=== PATIENT | female | born 1955 | race Caucasian/White ===

== ENCOUNTER 2020-02-12 10:24 | Outpatient (CLI) | payer OTHER, SELFPAY ==
--- NOTE | ~2020-02-12 | DEXA_ITS ---
BMD(1) Young-Adult(2) Age-Matched(3) Region (g/cm2) T-score Z-score WHO Classification L1 0.984 -1.3 0.9 Osteopenia L2 0.995 -1.8 0.4 Osteopenia L3 1.022 -1.6 0.6 Osteopenia L4 0.976 -1.9 0.3 Osteopenia L1-L4 0.993 -1.6 0.5 Osteopenia Trend: L1-L4 Change vs Change vs Measured Age BMD(1) Baseline Previous Date ([age]) (g/cm2) (%) (%) 02/12/2020 64.7 0.993 -11.3* 1.6 11/15/2016 61.5 0.977 -12.8* -2.6 05/08/2014 59.0 1.003 -10.4* -14.3* 02[age]24/2011 55.8 1.171 4.6* 4.6* 03/22/2007 51.9 1.120 baseline - * - Indicates significant change based on 95% confidence interval. 1 - Statistically 68% of repeat scans fall within 1SD (+- 0.010 g/cm2 for AP Spine L1-L4) 2 - [place] (Combined [employer] (ages 20-30) / [employer] (ages 20-40)) AP Spine Reference Population (v112) 3 - Matched for Age, Weight (females 25-100 kg), Ethnic 11 - World Health Organization - Definition of Osteoporosis and Osteopenia for Women: Normal = T-score at or above -1.0 SD; Osteopenia = T-score between -1.0 and -2.5 SD; Osteoporosis = T-score at or below -2.5 SD; (WHO definitions only apply when a young healthy Women reference database is used to determine T-scores.) Printed: 02/12/2020 11:00:50 AM (13.60)76:3.00:50.00:12.0 0.00:8.28 0.60x1.05 17.0:%Fat=8.7% 0.00:0.00 0.00:0.00 Filename: [id number] Scan Mode: Standard;OneScan 37.0 Apprats [id number] BMD(1) Young-Adult(2,7) Age-Matched(3) Region (g/cm2) T-score Z-score WHO Classification Neck Left 0.713 -2.3 -0.5 Osteopenia Right 0.718 -2.3 -0.5 Osteopenia Mean 0.716 -2.3 -0.5 Osteopenia Difference 0.006 0.0 0.0 - Total Left 0.812 -1.6 0.0 Osteopenia Right 0.766 -1.9 -0.3 Osteopenia Mean 0.789 -1.7 -0.1 Osteopenia Difference 0.047 -0.4 -0.4 - Hip O[place]phant Length Comparison (mm) (Right = 101.6 mm) (Mean = 101.5 mm) (Left = 101.5 mm) Trend: Total Mean Change vs Change vs Measured Age BMD(1) Baseline Previous Date (years) (g/cm2) (%) (%) 02/12/2020 63.7 0.789 -15.1* -6.2* 05/08/2014 59.0 0.841 -9.5* -9.1* 02[age]24/2011 55.8 0.925 -0.4 -0.4 03/22/2007 50.9 0.929 baseline - * - Indicates significant change based on 95% confidence interval. 1 - Statistically 68% of repeat scans fall within 1SD (+- 0.010 g/cm2 for DualFemur Total) 2 - [place] (Combined NHANES (ages 20-30) / [employer] (ages 20-40)) Femur Reference Population (v112) 3 - Matched for Age, Weight (females 25-100 kg), Ethnic 7 - DualFemur Total T-score difference is 0.4. Asymmetry is None. 11 - World Health Organization - Definition of Osteoporosis and Osteopenia for Women: Normal = T-score at or above -1.0 SD; Osteopenia = T-score between -1.0 and -2.5 SD; Osteoporosis = T-score at or below -2.5 SD; (WHO definitions only apply when a young healthy Women reference database is used to determine T-scores.) Printed: 02/12/2020 11:00:50 AM (13.60); Filename: [id number]; Right Femur; 14.4:%Fat=23.0%; Neck Angle (deg)= 60; Scan Mode: Standard 37.0 uGy; Left Femur; 14.6:%Fat=26.4%; Neck Angle (deg)= 65; Scan Mode: Standard 37.0 uGy Kleermail [id number] Dear Jc Pickett, Your patient Neda Easley completed a BMD test on 02/12/2020 using the [employer]
--- NOTE | ~2020-02-12 | MM_ITS ---
EXAMINATION: MM screening [facility] BI w anisa HISTORY: Screening mammogram TECHNIQUE: Craniocaudal and mediolateral oblique 3-D tomosynthesis images were obtained and synthetic 2-D images were generated. CAD analysis was submitted and interpreted. COMPARISON: 11/15/2016, 11/01/2015, 05/08/2014 BREAST PARENCHYMAL COMPOSITION: The breasts are heterogeneously dense, which may obscure small masses . FINDINGS: There is no evidence of suspicious mass, calcification, or architectural distortion to sugg est malignancy in either breast. There has been no suspicious interval change. IMPRESSION: 1. No mammographic evidence of malignancy. 2. Recommend routine screening mammography in one year. BI-RADS Category 1: Negative Reviewed, dictated and finalized at location A.
== END 2020-02-12 10:25 | disposition home or self-care (01) ==
LOC: CHSIMG 10:26
PROVIDERS: PCP Internal Medicine; Visit Provider Internal Medicine
DX: Z12.31 Encounter for screening mammogram for malignant neoplasm of breast (principal); M81.0 Age-related osteoporosis without current pathological fracture
CPT/HCPCS: 77063; 77067; 77080

== ENCOUNTER 2020-03-09 10:01 | Outpatient (CLI) | payer OTHER, SELFPAY ==
--- NOTE | ~2020-03-09 | CT_ITS ---
EXAMINATION: CT lung screening DATE: 03/09/2020 10:20 INDICATION: PERSONAL HISTORY OF TOBACCO DEPENDENCE,NO COMPLAINTS TECHNIQUE: Computed tomography (CT) of the chest was performed without intravenous contrast. Addition al 3D reconstructions utilizing coronal maximum intensity projection (MIP) were performed. Automated exposure control and iterative reconstruction technique were employed. The dose-length product was 56 .10 mGy-cm. COMPARISON: None FINDINGS: Severe emphysema. There are several scattered small pulmonary nodules in both lungs, the largest a 5 mm nodule/conglomeration of nodules in the left upper lobe. No pulmonary edema, pleural effusion or p neumothorax. Heart size is normal. No pericardial effusion. Atherosclerotic coronary artery calcifica tion. Normal caliber thoracic aorta. No pathologically enlarged thoracic lymphadenopathy. Visualized upper abdomen is unremarkable. Mild thoracolumbar dextrocurvature and mild lower thoracic kyphosis as sociated with chronic mild anterior wedging at T11 and T12. Moderate thoracic spondylosis. IMPRESSION: 1. Several 5 mm or smaller bilateral pulmonary nodules, Lung-RADS category 2: Benign appearance or be havior. Continue annual screening with noncontrast low-dose chest CT in 12 months. 2. Severe emphysema. Reviewed, dictated and finalized at location B. IMPRESSION: 1. Several 5 mm or smaller bilateral pulmonary nodules, Lung-RADS category 2: B enign appearance or behavior. Continue annual screening with noncontrast low-do se chest CT in 12 months. 2. Severe emphysema.
== END 2020-03-09 10:02 | disposition home or self-care (01) ==
LOC: CHSIMG 10:02
PROVIDERS: PCP Internal Medicine; Visit Provider Internal Medicine
DX: Z12.2 Encounter for screening for malignant neoplasm of respiratory organs (principal); Z87.891 Personal history of nicotine dependence
CPT/HCPCS: G0297

== ENCOUNTER 2020-10-29 13:45 | Outpatient (CLI) | payer OTHER, SELFPAY ==
--- NOTE | ~2020-10-29 | US_ITS ---
EXAMINATION: US retroperitoneal comp EXAM DATE: 10/29/2020 14:23 INDICATION: Acute renal failure. TECHNIQUE: Multiple grayscale and Doppler images of the kidneys were obtained (by a technologist who performed the scan) and subsequently reviewed. There is no prior study for comparison. FINDINGS: Right kidney: There is normal contour and mildly increased echogenicity. It measures 9.6 x 3.5 x 6.4 centimeters. There are no focal renal lesions identified. Mild hydronephrosis. Left kidney: There is normal contour and mildly increased echogenicity. It measures 10.2 x 3.5 x 6.3 centimeters. There are no focal renal lesions identified. There is no hydronephrosis. There are several septations in the bladder with some more diffuse trabeculation. IMPRESSION: 1. Mild right hydronephrosis. 2. Mildly increased cortical echogenicity, probably medical renal disease. 3. Bladder septations and trabeculation, probably chronic cystitis. Reviewed, dictated and finalized at location B.
== END 2020-10-29 13:46 | disposition home or self-care (01) ==
PROVIDERS: PCP Internal Medicine; Visit Provider Internal Medicine
DX: N17.9 Acute kidney failure, unspecified (principal)
CPT/HCPCS: 76770

== ENCOUNTER 2020-11-01 07:58 | Outpatient (CLI) | payer OTHER, SELFPAY ==
[2020-11-01 09:39] LABS: Anion Gap 9 mmol/L (8-16); Blood Urea Nitrogen 21 mg/dL (7-18); Calcium 8.7 mg/dL (8.5-10.1); Carbon Dioxide 30 mmol/L (21-32); Chloride 103 mmol/L (98-108); Estimated Glomerular Filt Rate 30; Glucose 81 mg/dL (70-99); Osmolality Calculated 296 mOsm/kg (285-295); Potassium 3.8 mmol/L (3.5-5.1); Sodium 142 mmol/L (136-145)
== END 2020-11-01 07:59 | disposition home or self-care (01) ==
LOC: CHSLAB 08:00
PROVIDERS: PCP Internal Medicine; Visit Provider Internal Medicine
DX: N17.9 Acute kidney failure, unspecified (principal)
CPT/HCPCS: 36415; 80048

== ENCOUNTER 2020-11-04 09:49 | Outpatient (CLI) | payer OTHER, SELFPAY ==
[2020-11-04 10:46] LABS: Anion Gap 8 mmol/L (8-16); Blood Urea Nitrogen 21 mg/dL (7-18); Calcium 8.4 mg/dL (8.5-10.1); Carbon Dioxide 30 mmol/L (21-32); Chloride 102 mmol/L (98-108); Estimated Glomerular Filt Rate 38; Glucose 83 mg/dL (70-99); Osmolality Calculated 292 mOsm/kg (285-295); Potassium 4.2 mmol/L (3.5-5.1); Sodium 140 mmol/L (136-145)
== END 2020-11-04 09:50 | disposition home or self-care (01) ==
LOC: CHSLAB 09:53
PROVIDERS: PCP Internal Medicine; Visit Provider Internal Medicine
DX: I10 Essential (primary) hypertension (principal)
CPT/HCPCS: 36415; 80048

== ENCOUNTER 2021-03-11 15:23 | Outpatient (CLI) | payer OTHER, SELFPAY ==
[2021-03-11 15:40] LABS: Basophils Absolute Auto 0.05 K/mm3 (0.00-0.10); Basophils Percent Auto 0.7 % (0.0-1.0); Eosinophils Absolute Auto 0.08 K/mm3 (0.02-0.50); Eosinophils Percent Auto 1.2 % (1.0-6.0); Hematocrit 39.8 % (35.0-49.0); Hemoglobin 13.7 g/dL (12.0-15.0); Immature Granulocyte Absolute 0.03 K/mm3 (0.00-0.00); Immature Granulocyte Percent A 0.4 % (0.0-0.0); Lymphocytes Absolute Auto 1.53 K/mm3 (1.10-4.50); Lymphocytes Percent Auto 22.9 % (18.0-42.0); Mean Corpuscular HGB Conc 34.4 g/dL (32.0-36.0); Mean Corpuscular Hemoglobin 30.8 pg (27.0-31.0); Mean Corpuscular Volume 89.4 fL (78.0-102.0); Mean Platelet Volume 8.4 fl (9.2-11.8); Monocytes Absolute Auto 0.53 K/mm3 (0.10-0.90); Monocytes Percent Auto 7.9 % (2.0-11.0); Neutrophils Absolute Auto 4.5 K/mm3 (1.7-7.2); Neutrophils Percent Auto 66.9 % (50.0-70.0); Platelet Count Result 309 K/mm3 (150-420); Red Blood Count 4.45 M/mm3 (4.20-5.40); White Blood Count 6.7 K/mm3 (4.8-10.8)
[2021-03-11 15:57] LABS: Alanine Aminotransferase 13 U/L (14-59); Albumin Level 3.7 g/dL (3.4-5.0); Alkaline Phosphatase 81 U/L (46-116); Anion Gap 8 mmol/L (8-16); Aspartate Amino Transferase 17 U/L (15-37); Bilirubin,Total 0.2 mg/dL (0.00-1.00); Blood Urea Nitrogen 7 mg/dL (7-18); Carbon Dioxide 32 mmol/L (21-32); Chloride 103 mmol/L (98-108); Estimated Glomerular Filt Rate 53; Glucose 94 mg/dL (70-99); Osmolality Calculated 294 mOsm/kg (285-295); Potassium 3.2 mmol/L (3.5-5.1); Sodium 143 mmol/L (136-145); Total Protein 7.1 g/dL (6.4-8.2)
[2021-03-11 16:09] LABS: Calcium 8.4 mg/dL (8.5-10.1)
[2021-03-17 00:51] LABS: CA-125 10 U/mL (<35)
== END 2021-03-11 15:24 | disposition home or self-care (01) ==
LOC: CHSLAB 15:26
PROVIDERS: PCP Internal Medicine; Visit Provider Obstetrics & Gynecology
DX: N83.8 Other noninflammatory disorders of ovary, fallopian tube and broad ligament (principal)
CPT/HCPCS: 36415; 80053; 85025; 86304

== ENCOUNTER 2021-11-23 10:21 | Outpatient (CLI) | payer MEDICARE, SELFPAY ==
--- NOTE | ~2021-11-23 | CT_ITS ---
EXAMINATION: CT lung screening DATE: 11/23/2021 10:54 INDICATION: Personal history of tobacco dependence TECHNIQUE: Computed tomography (CT) of the chest was performed without intravenous contrast. The dose -length product was 56.86 mGy-cm. Automated exposure control and iterative reconstruction technique were employed. COMPARISON: CT dated 03/09/2020 FINDINGS: There is severe emphysema. There is mild atherosclerosis. Heart size normal. No significant pleural or pericardial effusion. The upper abdomen is unremarkable. No thoracic lymphadenopathy. The re are several small pulmonary nodules measuring 3 mm or less without significant change. There are a few scattered calcified granulomas. No endobronchial lesions. No pneumothorax. Mild thoracic spondyl osis. Accentuated kyphosis. IMPRESSION: 1. Lung-RADS category 2: Benign appearance or behavior. Continue annual screening with noncontrast lo w-dose chest CT in 12 months. Reviewed, dictated and finalized at location A. IMPRESSION: 1. Lung-RADS category 2: Benign appearance or behavior. Continue annual screeni ng with noncontrast low-dose chest CT in 12 months.
--- NOTE | ~2021-11-23 | MM_ITS ---
EXAMINATION: MM screening [facility] BI w anisa HISTORY: Screening mammogram TECHNIQUE: Craniocaudal and mediolateral oblique 3-D tomosynthesis images were obtained and synthetic 2-D images were generated. CAD analysis was submitted and interpreted. COMPARISON: 02/12/2020, 09/30/2016 BREAST PARENCHYMAL COMPOSITION: There are scattered areas of fibroglandular density. FINDINGS: There is no suspicious mass, calcification, or architectural distortion to suggest malignan cy in either breast. There has been no suspicious interval change. IMPRESSION: 1. No mammographic evidence of malignancy. 2. Recommend routine screening mammography in one year. BI-RADS Category 1: Negative Reviewed, dictated and finalized at location A.
== END 2021-11-23 10:22 | disposition home or self-care (01) ==
LOC: CHSIMG 10:25
PROVIDERS: PCP Internal Medicine; Visit Provider Internal Medicine
DX: Z12.2 Encounter for screening for malignant neoplasm of respiratory organs (principal); Z12.31 Encounter for screening mammogram for malignant neoplasm of breast; Z87.891 Personal history of nicotine dependence
CPT/HCPCS: 71271; 77063; 77067

== ENCOUNTER 2022-05-01 14:16 | Outpatient (CLI) | payer MEDICARE, SELFPAY ==
--- NOTE | ~2022-05-01 | DEXA_ITS ---
Bone Density Report Name: DUSTIN VELASQUEZ Age: 67 Sex: Female Ethnicity: White Date of : 1955 Indication: hyperparathyroidism; height loss; asthma or emphysema; hysterectomy; Referring Provider: Jc Pickett Study: Bone densitometry was performed. Exam Date: May 01, 2022 Accession number: [id number] Bone Density: Region BMD T-score Z-score Classification AP Spine(L2, L3, L4) 0.902 -1.6 0.3 Osteopenia Femoral Neck (Left) 0.595 -2.3 -0.7 Osteopenia Total Hip (Left) 0.766 -1.4 -0.2 Osteopenia Femoral Neck (Right) 0.593 -2.3 -0.7 Osteopenia Total Hip (Right) 0.751 -1.6 -0.3 Osteopenia Femoral Neck Mean 0.594 -2.3 -0.7 Osteopenia Total Hip Mean 0.758 -1.5 -0.2 Osteopenia World Health Organization criteria for BMD impression classify patients as: Normal (T-score at or above -1.0), Osteopenia (T-score between -1.0 and -2.5), or Osteoporosis (T-score at or below -2.5). 10-year Fracture Risk: FRAX not reported because: Treated for osteoporosis Clinical Information Provided by Patient: Smokes Is being treated for osteoporosis Has used the following medications: Actonel (i.e. risedronate), Fosamax (i.e. alendronate), Vitamin D, Calcium Has the following medical conditions: Asthma or Emphysema, Hyperparathyroidism, Hysterectomy Patient maximum height was 65 Menopause Age: 51 No regular weight bearing exercise Does not regularly consume dairy products Drinks caffeinated beverages Onset of menses at age 13 Number of children 2 Impression: The patient has low bone mass, based on the Left Femoral Neck T-score. The patient has risk factors, including: smoking. Discussion: It is important to ask patients whether they are taking their medications and to encourage continued and appropriate compliance with their osteoporosis therapies to reduce fracture risk. It is also important to review their risk factors and encourage appropriate calcium and vitamin D intakes, exercise, fall prevention and other lifestyle measures. Follow-Up: Consider a repeat BMD and Vertebral Fracture Assessment (VFA) exam in 2 years or sooner if medically necessary, to reassess this patient's status. Reported by: Dr. Oc Yañez on 05/01/2022 2:45:00 PM. Reviewed, dictated and finalized at location A. [facility]
== END 2022-05-01 14:17 | disposition home or self-care (01) ==
LOC: CHSIMG 14:17
PROVIDERS: PCP Internal Medicine; Visit Provider Internal Medicine
DX: Z78.0 Asymptomatic menopausal state (principal); M85.89 Other specified disorders of bone density and structure, multiple sites
CPT/HCPCS: 77080

== ENCOUNTER 2022-11-20 16:50 | Outpatient (RCR) | payer MEDICARE, SELFPAY ==
--- NOTE | 2022-11-20 16:43 | PTOPEVAL1 ---
Assessment and note entered by Lencho Hankins Evaluation Information Assessment Status Evaluation Diagnosis low back pain Onset 11/06/22 Subjective Information Pt. reports she has had on/off back pain for years . She reports that she retired about 1 year ago. She notices that she became more sedintary over the past year. She reports that her pain has worsened over the past week. She reports she does smoke and recalls a hx of osteoporosis. She states that pain is increased with long periods of standing. She states that cleaning her home is becoming difficult due to pain. She notes that she can only stand for about 5-10 minutes before having to sit. She reports she sits in her recliner for relief from her pain. She states that her goal is to decrease her back pain. Reported Pain Level Pain Score 4: Self Report Assessment PT Clinical Summary Pt. is a 67 year old female who enters the clinic with back pain. Pt. presents with impaired postural awareness, impaired u.e. and l.e. strength, pain and functional decline. Continued skilled PT is indicated in order to improve these areas to allow the pt. to be able to complete all IADL's with improved comfort and efficiency. Plan of Care Interventions Electrical Stimulation,Hot Pack/Cold Pack,Manual Therapy,Neuro Re-education,Patient/Caregiver Educati,Therapeutic Activities,Therapeutic Exercise PT Services Indicated Yes Treatment Frequency and 3x/week x 12 visits Duration These treatments will address the objective and functional deficits as defined above. The patient will be advanced safely and appropriately in order for the patient to progress towards his/her prior level of function. Additional exercises will be introduced and as well as a comprehensive home exercise program upon discharge, if needed, ?to ensure carryover of functional gains achieved in the clinic. This treatment plan has been reviewed and agreement upon by the patient.
--- NOTE | 2022-11-20 16:44 | OPREHPOC ---
Outpatient Therapy Plan of Care This is a Multidisciplinary Plan of Care that may contain components documented by all disciplines (PT, OT, and ST.) PT Problem 1 PT Problem #1 Knowledge Deficit PT Goal 1 Goal Pt. will be indpendent with a HEP addressing postural awareness. Target Visit 2 PT Problem 2 PT Problem #2 Impaired Strength PT Goal 1 Goal Increase bilateral l.e. strength to 4+/5 at all mm . groups Increase bilateral u.e. strength to 4+/5 at all mm . groups Target Visit 6 PT Goal 2 Goal Pt. will increase strength in order to allow for improved postural awareness in standing. Target Visit 12 PT Problem 3 PT Problem #3 Pain PT Goal 1 Goal Reduce pain to 2/10 at worst with all prolonged standing activities Target Visit 6 PT Goal 2 Goal Pt. will be able to complete all household duties with 2/10 pain at worst for a duration of 30-45 minutes Target Visit 12
--- NOTE | 2022-12-15 13:27 | OPREHPOC ---
Outpatient Therapy Plan of Care This is a Multidisciplinary Plan of Care that may contain components documented by all disciplines (PT, OT, and ST.) PT Problem 1 PT Problem #1 Knowledge Deficit PT Goal 1 Goal Pt. will be indpendent with a HEP addressing postural awareness. Target Visit 2 Progress Met PT Problem 2 PT Problem #2 Impaired Strength PT Goal 1 Goal Increase bilateral l.e. strength to 4+/5 at all mm . groups Increase bilateral u.e. strength to 4+/5 at all mm . groups Target Visit 6 Progress Met PT Goal 2 Goal Pt. will increase strength in order to allow for improved postural awareness in standing. Target Visit 12 Progress Met PT Problem 3 PT Problem #3 Pain PT Goal 1 Goal Reduce pain to 2/10 at worst with all prolonged standing activities Target Visit 6 Progress Not Met PT Goal 2 Goal Pt. will be able to complete all household duties with 2/10 pain at worst for a duration of 30-45 minutes Target Visit 12 Progress Not Met
--- NOTE | 2022-12-15 13:28 | PTOPDC ---
Assessment and note entered by Yue Sheridan DPT Evaluation Information Assessment Status Discharge Diagnosis low back pain Onset 11/06/22 Subjective Information Patient reports her back is feeling better. She reports she has been able to return to house hold tasks at [facility]. She reports she is ready for DC at this time. Reported Pain Level Pain Score 0: Self Report Assessment PT Clinical Summary Patient was seen for 9 visits of skilled PT with great progress. Patient partially met goals. Patient reports she has been able to return to ADLs at [facility]. Patient reports independence with HEP and is appropriate for DC at this time. Plan of Care PT Services Indicated No
== END 2022-12-14 14:34 | disposition home or self-care (01) ==
LOC: CHSPT 16:50
PROVIDERS: PCP Internal Medicine; Visit Provider Internal Medicine
DX: M54.50 Low back pain, unspecified (principal)
CPT/HCPCS: 97014; 97110; 97112; 97150; 97161; G0283

== ENCOUNTER 2022-11-24 13:16 | Outpatient (CLI) | payer MEDICARE, SELFPAY ==
--- NOTE | ~2022-11-24 | CT_ITS ---
EXAMINATION: CT lung screening DATE: 11/24/2022 13:46 INDICATION: Personal history of nicotine dependence, current smoker with 43 pack year history TECHNIQUE: Computed tomography (CT) of the chest was performed without intravenous contrast. The dose -length product (DLP) was 56.31 mGy-cm. Automated exposure control and iterative reconstruction techn ique were employed. COMPARISON: 11/23/2021 FINDINGS: There is severe emphysema. There is a new 3 mm nodule of the right lower lobe abutting the major fissure. There is a new 4 mm nodule of the right lower lobe on image 89. There are multiple add itional smaller pulmonary nodules measuring 3 mm or less. No pleural effusion or pneumothorax. The carol ngs are free of acute opacities. No pathologically enlarged thoracic lymph nodes are identified. The heart size is normal. Calcified coronary artery atherosclerosis is noted. There is moderate thoracic spondylosis. IMPRESSION: 1. Lung-RADS category 3: Probably benign. Followup with noncontrast low-dose chest CT in 6 months is recommended. Reviewed, dictated and finalized at location B. IMPRESSION: 1. Lung-RADS category 3: Probably benign. Followup with noncontrast low-dose est CT in 6 months is recommended.
--- NOTE | ~2022-11-24 | MM_ITS ---
EXAMINATION: MM screening [facility] w anisa HISTORY: Screening mammogram TECHNIQUE: Craniocaudal and mediolateral oblique 3-D tomosynthesis images were obtained and synthetic 2-D images were generated. CAD analysis was submitted and interpreted. COMPARISON: 11/23/2021, 02/12/2020, 11/15/2016 bilateral screening mammogram examinations BREAST PARENCHYMAL COMPOSITION: There are scattered areas of fibroglandular density. FINDINGS: There is no evidence of suspicious mass, calcification, or architectural distortion to sugg est malignancy in either breast. There has been no suspicious interval change. IMPRESSION: 1. No mammographic evidence of malignancy. 2. Recommend routine screening mammography in one year. BI-RADS Category 1: Negative Reviewed, dictated and finalized at location A.
== END 2022-11-24 13:17 | disposition home or self-care (01) ==
LOC: CHSIMG 13:19
PROVIDERS: PCP Internal Medicine; Visit Provider Internal Medicine
DX: Z12.2 Encounter for screening for malignant neoplasm of respiratory organs (principal); Z12.31 Encounter for screening mammogram for malignant neoplasm of breast; Z87.891 Personal history of nicotine dependence
CPT/HCPCS: 71271; 77063; 77067

== ENCOUNTER 2022-11-30 10:10 | Outpatient (CLI) | payer MEDICARE, SELFPAY ==
--- NOTE | ~2022-11-30 | CT_ITS ---
EXAMINATION: CT abdomen pelvis w con DATE: 11/30/2022 11:42 INDICATION: Unexplained weight loss. Malaise, fatigue. History of ovarian cyst removal TECHNIQUE: Computed tomography (CT) of the abdomen and pelvis was performed with 100 CC Omnipaque 350 intravenous contrast. Automated exposure control and iterative reconstruction technique were employe d. Exam dose: 178.22 mGy-cm total exam DLP. COMPARISON: 10/29/2020 retroperitoneal ultrasound examination 02/28/2012 CT abdomen pelvis images are not available from the archive at this time FINDINGS: The lung bases are clear of infiltrate or consolidation. Mild to moderate emphysematous mahendra nges. Normal heart size. No pericardial or pleural effusion. The liver, gallbladder, bile ducts, spleen, pancreas and pancreatic duct are unremarkable. Normal morphology of the adrenal glands. Probable 5 mm cyst of the lower pole of the left kidney. No suspicious space-occupying mass lesion of either kidney is noted. No renal scarring or urinary tract calculus or hydroureteronephrosis is dete cted. The urinary bladder is unremarkable. Status post hysterectomy. Bilateral pelvic surgical clips are noted. There is atherosclerotic calcification but normal caliber of the abdominal aorta. No intraperitoneal or retroperitoneal or pelvic mass lesion or adenopathy or ascites is detected. No bowel obstruction, bowel wall thickening, pneumatosis or intraperitoneal free air. There is grade 2 anterolisthesis due to degenerative changes apophyseal joints. There is grade 1 anterolisthesis at L5-S1 due to bilateral pars interarticularis defects. Moderately severe degenerative disease at L4-5, moderate degenerative disease at L5-S1. Degenerative spurring of the lower thoracic spine. No suspicious osteolytic or osteoblastic lesions are identified. IMPRESSION: Status post hysterectomy Reviewed, dictated and finalized at Location A. Reviewed, dictated and finalized at location L. IMPRESSION: Status post hysterectomy
[2022-11-30 10:32] LABS: Estimated Glomerular Filt Rate 58
== END 2022-11-30 10:11 | disposition home or self-care (01) ==
LOC: CHSIMG 10:12
PROVIDERS: PCP Internal Medicine; Visit Provider Internal Medicine
DX: R63.4 Abnormal weight loss (principal); R63.0 Anorexia; R91.8 Other nonspecific abnormal finding of lung field; Z90.710 Acquired absence of both cervix and uterus
CPT/HCPCS: 74177; Q9967

== ENCOUNTER 2023-02-28 10:28 | Outpatient (CLI) | payer MEDICARE, SELFPAY ==
--- NOTE | ~2023-02-28 | CT_ITS ---
CT Scan of the Chest without Contrast: Clinical Indication: Pulmonary nodules Technique: Contiguous sections were acquired throughout the chest without intravenous contrast. Dose reduction technique was used on this scan by utilizing automated exposure control and iterative recon struction technique. The dose-length product (DLP) was 59.29 mGy-cm. COMPARISON: 11/24/2022, 11/23/2021 Findings: There is no evidence of any significant mediastinal, hilar or axillary lymphadenopathy. The mediastin al soft tissues appear normal. There is no evidence of pleural or pericardial effusion. There is advanced emphysema. No pulmonary nodule identified. Images through the upper abdomen reveal no abnormalities. Impression: No significant pulmonary nodule identified. Advanced emphysema. Reviewed, dictated and finalized at location . Impression: No significant pulmonary nodule identified. Advanced emphysema.
== END 2023-02-28 10:29 | disposition home or self-care (01) ==
LOC: CHSIMG 10:30
PROVIDERS: PCP Internal Medicine; Visit Provider Internal Medicine
DX: R91.8 Other nonspecific abnormal finding of lung field (principal); J43.9 Emphysema, unspecified
CPT/HCPCS: 71250

== ENCOUNTER 2023-03-26 16:00 | Inpatient (IN) | payer MEDICARE, SELFPAY ==
[2023-03-26] VITALS (29 sets, daily range): BP systolic 92–140; BP diastolic 54–75; PULSE 72–97; RESP 16–22; TEMP 36.2–37; O2SAT 88–100; BMI 18.9
--- NOTE | ~2023-03-26 | XR_ITS ---
XR chest 2V DATE: 03/26/2023 16:40 INDICATION: Cough, shortness of breath. History of emphysema. TECHNIQUE: PA and lateral chest COMPARISON: 02/28/2023 CT chest 05/11/2019 2 view chest FINDINGS: Bilateral hyperinflation consistent with COPD. No pulmonary infiltrate or consolidation, pleural effusion or pulmonary vascular congestion or pneumo thorax is detected. Normal heart size. Prominent central pulmonary arteries with some rapid peripheral tapering suggesting pulmonary hyperte nsion. No hilar or mediastinal enlargement is evident. There is osteopenia. Thoracic and lumbar scoliosis. IMPRESSION: COPD Reviewed, dictated and finalized at location B. PING MACHINE OPERATOR FOR METAL IMPRESSION: COPD
--- NOTE | 2023-03-26 16:18 | ED.SOB ---
HPI - SOB/Dyspnea General Chief Complaint: Shortness of Breath/Dyspnea Stated Complaint: short of breath Time Seen by Provider: 03/26/23 16:15 History of Present Illness HPI Narrative: Patient is a 67-year-old female with history of COPD here with a cough and shortness of breath. She states that the cough has been going on for the last several weeks and seems to be worsening. Cough is productive of a clear-rosa white sputum. She denies any associated fever. She does feel like her right side of her chest feels full of fluid . She denies any prior cardiac history. She denies any chest pain, abdominal pain, leg swelling. No known sick contacts. No urinary changes. She denies home oxygen use. No prior history of PE or DVT. Related Data Home Medications Medication Instructions Recorded Confirmed aripiprazole 5 mg tablet (Abilify) 5 mg PO DAILY 05/11/19 03/26/23 escitalopram oxalate 10 mg tablet 10 mg PO DAILY 05/11/19 03/26/23 hydrocodone 10 mg-acetaminophen 1 tablet PO Q6H PRN Pain 05/11/19 03/26/23 325 mg tablet ([place]) levothyroxine 150 mcg tablet 150 mcg PO DAILY 05/11/19 03/26/23 mirtazapine 15 mg disintegrating 15 mg PO HS 05/11/19 03/26/23 tablet naloxone 4 mg/actuation nasal 4 mg intranasal PRN PRN Opioid 05/11/19 03/26/23 spray (Narcan) Overdose Allergies Allergy/AdvReac Type Severity Reaction Status Date / Time Penicillins Allergy Unknown Unknown Verified 03/26/23 16:09 Review of Systems Review of Systems: All systems reviewed & are unremarkable except as noted in HPI and below PMFSH Past Medical History Medical History (Updated 03/26/23 @ 23:09 by Donita Cho MD) Depression Hypothyroidism Surgical History Surgical History H/O: hysterectomy Family History Family History Father COPD (chronic obstructive pulmonary disease) Mother Acute myocardial infarction, Onset Age: 65 Social History Social History Smoking packs per day: 0.5 Smoking cigarettes per day: 10.0 Years smoked: 55 Smoking pack-years: 27.50 Smoking status: Current every day smoker Tobacco type: cigarettes Alcohol intake: never Substance use: never Substance use type: does not use Lack of Transportation: No Lack of Food: Never True Current Housing: I Have Housing Concerned About Future Housing: No Difficulty Paying Gas/Electric Bills: No Difficulty Paying for Meds: No Currently Unemployed: No Education: High School Diploma/GED Difficulty w/ Childcare or Family Care: No Spiritual care concerns: No Exam Narrative: GENERAL: Well-appearing, well-nourished, and in no acute distress. HEAD: Normocephalic, atraumatic. EYES: PERRLA and EOMI. ENT: Nares clear. Mucous membranes moist. NECK: Supple. CHEST: Bilateral wheeze present. No respiratory distress. HEART: Regular rate and rhythm. Normal peripheral pulses. ABDOMEN: Soft, nontender, nondistended. EXTREMITIES: Normal range of motion. No edema. SKIN: Warm, dry, no rash. NEURO: No focal deficits. Alert and oriented x3. PSYCH: Normal mood and affect. Course Course Emergency Course: Chart review performed. One prior visit for cough, shortness of breath in 2019. Triage vitals show hypoxia of 88, otherwise normal. Patient seen evaluated, no acute distress. Throughout my history patient continues to be saturating 85-86% on room air. Placed on oxygen by myself. Differentials include COPD exacerbation, COVID/influenza/RSV, Pneumonia, less likely ACS. Lab work and imaging reviewed. WBC of 12.5, potassium low at 2.5, troponin normal at 11.3. COVID, Influenza, RSV negative. CXR consistent with COPD. No obvious infiltrate. Given leukocytosis of 12.5, will err on the side of caution and cover her for CAP with levaquin. Admission orders have been placed per protocol. Home
--- NOTE | 2023-03-26 16:19 | ECG_ITS ---
Measurements Intervals [place] Rate: 69 P: 77 OR: 163 QRS: 83 QRSD: 98 T: 75 QT: 366 QTc: 395 Interpretive Statements SINUS RHYTHM INCOMPLETE RIGHT BUNDLE BRANCH BLOCK MINIMAL Q WAVES- INF/LAT LEADS BASELINE ARTIFACT- I, III, AVR, AVL, AVF, V4-V6 BORDERLINE ECG NO PREVIOUS ECG AVAILABLE FOR COMPARISON Electronically Signed On 03-26-2023 16:54:12 LIVESTOCK INSPECTOR by Doron Antony D.O.
[2023-03-26 16:46] LABS: Basophils Absolute Auto 0.07 K/mm3 (0.00-0.10); Basophils Percent Auto 0.6 % (0.0-1.0); Eosinophils Absolute Auto 0.58 K/mm3 (0.02-0.50); Eosinophils Percent Auto 4.6 % (1.0-6.0); Hematocrit 40.9 % (35.0-42.0); Hemoglobin 14.1 g/dL (11.7-13.8); Immature Granulocyte Absolute 0.06 K/mm3 (0.00-0.00); Immature Granulocyte Percent A 0.5 % (0.0-0.0); Lymphocytes Absolute Auto 1.63 K/mm3 (1.10-4.50); Mean Corpuscular HGB Conc 34.5 g/dL (32.0-36.0); Mean Corpuscular Hemoglobin 32.2 pg (27.0-31.0); Mean Corpuscular Volume 93.4 fL (78.0-102.0); Monocytes Absolute Auto 1.52 K/mm3 (0.10-0.90); Monocytes Percent Auto 12.1 % (2.0-11.0); Neutrophils Absolute Auto 8.7 K/mm3 (1.7-7.2); Neutrophils Percent Auto 69.2 % (50.0-70.0); Platelet Count Result 308 K/mm3 (150-420); Red Blood Count 4.38 M/mm3 (4.20-5.40); Red Cell Distribution Width 12.3 % (11.6-14.4); White Blood Count 12.5 K/mm3 (4.8-10.8)
[2023-03-26] MEDS: ALBUTEROL SULFATE NEB 2.5 MG/3 ML INH INHALATION ×5 (16:53→23:00)
[2023-03-26] MEDS: IPRATROPIUM BR 0.02% INH SOLN 0.5 MG/2.5 ML VIAL INHALATION ×5 (16:53→23:00)
[2023-03-26 17:01] LABS: Partial Thromboplastin Time 25.8 SEC (23.90-30.70); Prothrombin Time 10.7 Seconds (9.50-12.10)
[2023-03-26 17:11] LABS: Alanine Aminotransferase 9 U/L (14-59); Albumin Level 2.9 g/dL (3.4-5.0); Alkaline Phosphatase 124 U/L (46-116); Anion Gap 2 mmol/L (8-16); Aspartate Amino Transferase 16 U/L (15-37); Bilirubin,Total 0.3 mg/dL (0.00-1.00); Blood Urea Nitrogen 6 mg/dL (7-18); Calcium 9.1 mg/dL (8.5-10.1); Carbon Dioxide 41 mmol/L (21-32); Chloride 99 mmol/L (98-108); Estimated CRCL calculation 41 ml/min; Estimated Glomerular Filt Rate 59; Glucose 109 mg/dL (70-99); NT Pro B Type Natriuretic Pept 419 pg/mL (0-125); Osmolality Calculated 292 mOsm/kg (285-295); Sodium 142 mmol/L (136-145); Total Protein 6.6 g/dL (6.4-8.2); Troponin I 11.3 ng/L (0.00-60.4)
[2023-03-26 17:12] LABS: Potassium 2.5 mmol/L (3.5-5.1)
[2023-03-26 17:22] LABS: Influenza A QL RT-PCR Negative (Negative); Influenza B QL RT-PCR Negative (Negative); SARS-CoV-2 RNA PCR Negative (Negative)
[2023-03-26 17:28] LABS: RSV RNA, RT-PCR Negative (Negative)
[2023-03-26] MEDS: POTASSIUM BICARBONATE 25 MEQ TABEF 50 MEQ PO (17:46)
--- NOTE | 2023-03-26 17:49 | PC.NURSE ---
PT HAS COMPLETED NEB TX, REPORTS SHE IS FEELING BETTER. RESP STATUS HAS IMPROVED. FAMILY ARE AT BEDSIDE. WILL CONTINUE TO MONITOR.
--- NOTE | 2023-03-26 18:32 | PC.NURSE ---
PT IS TO BE ADMITTED TO ROOM 204. PT AND FAMILY ARE AWARE OF PLAN OF CARE. PT DESATS TO 87% ON RA. PT WAS PLACED BACK ON 2L O2 AND IS AT 94%. NAD NOTED. WILL CONTINUE TO MONITOR.
--- NOTE | 2023-03-26 19:10 | ADMGEN ---
This patient, Neda Easley, was admitted to 2nd Floor Room 204-2. Patient/family oriented to hospital policies and general routines including ID bracelet, bed and alarms, visiting hours, pain management, procedures, bathroom and other care routines, personal items, smoking policy, room service/diet, and visiting hours. Information on how to activate the Rapid Response Team has been discussed. Patient/Family are encouraged to report perceived risks to care and to ask questions if they do not understand what they are told or what they should do.
[2023-03-26] MEDS: levoFLOXacin TAB 500 MG, levoFLOXacin TAB 250 MG 750 MG PO (20:15)
[2023-03-26] MEDS: MIRTAZAPINE 15 MG TABLET PO (20:16)
[2023-03-26] MEDS: ACETAMINOPHEN 325 MG TABLET 650 MG PO (20:16)
[2023-03-26] MEDS: traZODone HCL 50 MG TABLET 200 MG PO (20:54)
[2023-03-27] VITALS (13 sets, daily range): BP systolic 110–137; BP diastolic 56–78; PULSE 68–94; RESP 15–20; TEMP 36.1–36.7; O2SAT 76–98
[2023-03-27] MEDS: ACETAMINOPHEN 325 MG TABLET 650 MG PO (04:59)
[2023-03-27] MEDS: ONDANSETRON INJ 4 MG/2 ML VIAL IV PUSH (04:59)
[2023-03-27] MEDS: LEVOTHYROXINE SODIUM 75 MCG TABLET 150 MCG PO (05:00)
--- NOTE | 2023-03-27 05:02 | PC.NURSE ---
Patient c/o chronic back, neck, and arthritis pain, states she normally takes Hydrocodone 5/325 QID PRN at home, is requesting this med be prescribed while in hospital. PRN Tylenol given d/t non-emergent nature of request. Will speak with PROCESS MANAGER this AM.
[2023-03-27] MEDS: ALBUTEROL SULFATE NEB 2.5 MG/3 ML INH INHALATION (05:35)
[2023-03-27] MEDS: IPRATROPIUM BR 0.02% INH SOLN 0.5 MG/2.5 ML VIAL INHALATION (05:36)
[2023-03-27 05:46] LABS: Basophils Absolute Auto 0.04 K/mm3 (0.00-0.10); Basophils Percent Auto 0.4 % (0.0-1.0); Eosinophils Absolute Auto 0.47 K/mm3 (0.02-0.50); Eosinophils Percent Auto 4.6 % (1.0-6.0); Hematocrit 35.4 % (35.0-42.0); Hemoglobin 11.8 g/dL (11.7-13.8); Immature Granulocyte Absolute 0.05 K/mm3 (0.00-0.00); Immature Granulocyte Percent A 0.5 % (0.0-0.0); Lymphocytes Absolute Auto 1.27 K/mm3 (1.10-4.50); Lymphocytes Percent Auto 12.5 % (18.0-42.0); Mean Corpuscular HGB Conc 33.3 g/dL (32.0-36.0); Mean Corpuscular Hemoglobin 31.8 pg (27.0-31.0); Mean Corpuscular Volume 95.4 fL (78.0-102.0); Mean Platelet Volume 8.7 fl (9.2-11.8); Monocytes Absolute Auto 1.21 K/mm3 (0.10-0.90); Monocytes Percent Auto 11.9 % (2.0-11.0); Neutrophils Absolute Auto 7.1 K/mm3 (1.7-7.2); Neutrophils Percent Auto 70.1 % (50.0-70.0); Platelet Count Result 250 K/mm3 (150-420); Red Blood Count 3.71 M/mm3 (4.20-5.40); Red Cell Distribution Width 12.4 % (11.6-14.4); White Blood Count 10.1 K/mm3 (4.8-10.8)
[2023-03-27 06:03] LABS: Anion Gap 0 mmol/L (8-16); Blood Urea Nitrogen 11 mg/dL (7-18); Carbon Dioxide 41 mmol/L (21-32); Chloride 102 mmol/L (98-108); Estimated CRCL calculation 41 ml/min; Estimated Glomerular Filt Rate 57; Glucose 104 mg/dL (70-99); Osmolality Calculated 295 mOsm/kg (285-295); Potassium 3.2 mmol/L (3.5-5.1); Sodium 143 mmol/L (136-145)
--- NOTE | 2023-03-27 07:33 | PM.IMHP ---
H&P: HPI History of Present Illness Date/Time: 03/27/23 07:33 Chief Complaint: persistent cough, difficulty breathing Narrative: This is a 67-year-old female patient past medical history of COPD, depression, hypertension, hypothyroidism and tobacco abuse presents with persistent cough and shortness of breath. Patient reports that the cough has been present for several years but worsening over the last few weeks. It is productive with clear sputum. She denies fever chills. Patient denies any chest pain abdominal pain nausea vomiting constipation diarrhea bowel or bladder problems. She does not have a history blood. She does not use oxygen at home but has remained on oxygen since arrival to the emergency department. Emergency department workup was concerning for elevated white blood cell count and decreased potassium. Viral swabs were negative room air saturation was 80 86%. Patient started on oral 750 mg every 48 hours by the emergency department physician. Patient reports that she has decreased her smoking from 1 pack per day to about half pack per day but continues to smoke. Review of Systems Review of Systems: All systems reviewed & are unremarkable except as noted in HPI and below PMFSH Past Medical History Medical History COPD (chronic obstructive pulmonary disease) Depression HTN (hypertension) Hypothyroidism Tobacco use Surgical History Surgical History H/O: hysterectomy Family History Family History Father COPD (chronic obstructive pulmonary disease) Mother Acute myocardial infarction, Onset Age: 65 Social History Social History Smoking packs per day: 0.5 Smoking cigarettes per day: 10.0 Years smoked: 55 Smoking pack-years: 27.50 Smoking status: Current every day smoker Tobacco type: cigarettes Alcohol intake: never Substance use: never Substance use type: does not use Lack of Transportation: No Lack of Food: Never True Current Housing: I Have Housing Concerned About Future Housing: No Difficulty Paying Gas/Electric Bills: No Difficulty Paying for Meds: No Currently Unemployed: No Education: High School Diploma/GED Difficulty w/ Childcare or Family Care: No Spiritual care concerns: No Meds Home Medications and Allergies Home Medications Medication Instructions Recorded Confirmed Type albuterol sulfate 90 mcg/actuation 2 puff inhalation QID PRN 05/11/19 03/26/23 Rx aerosol inhaler shortness of breath #6.7 grams aripiprazole 5 mg tablet (Abilify) 5 mg PO DAILY 05/11/19 03/26/23 History mirtazapine 15 mg disintegrating 15 mg PO HS 05/11/19 03/26/23 History tablet naloxone 4 mg/actuation nasal 4 mg intranasal PRN PRN Opioid 05/11/19 03/26/23 History spray (Narcan) Overdose alendronate 70 mg tablet 70 mg WEEKLY 03/27/23 03/27/23 History amlodipine 10 mg tablet 10 mg DAILY 03/27/23 03/27/23 History calcitriol 0.5 mcg capsule 0.5 mcg DAILY 03/27/23 03/27/23 History escitalopram oxalate 20 mg tablet 20 mg PO DAILY 03/27/23 03/27/23 History hydrocodone 10 mg-acetaminophen 10 - 325 tablet TID 03/27/23 03/27/23 History 325 mg tablet levothyroxine 112 mcg tablet 112 mcg 5XW 03/27/23 03/27/23 History lisinopril 30 mg tablet 30 mg DAILY 03/27/23 03/27/23 History lovastatin 10 mg tablet 10 mg PER PKG DIR 03/27/23 03/27/23 History trazodone 100 mg tablet 200 mg HS 03/27/23 03/27/23 History Allergies Allergy/AdvReac Type Severity Reaction Status Date / Time Penicillins Allergy Unknown Unknown Verified 03/26/23 16:09 Vital Signs Vital Signs - 24 hr 03/26/23 16:00 03/26/23 16:00 03/26/23 16:42 Temperature 37.0 C Pulse Rate 90 74 Respiratory Rate 20 18 Blood Pressure 140/75 Pulse Oximetry 88 L 96 Oxygen Delivery Room Air Room Air Nasal Cannula Oxygen Flow Rate 3
[2023-03-27 07:48] LABS: Thyroid Stimulating Hormone Reflex 2.15 u/IU/mL (0.36-3.74)
[2023-03-27 07:59] LABS: Base Excess ABG 5.9 mmol/L (0-2); HCO3 ABG 32.4 mmol/L (23-29); Oxygen Content ABG 15.8 %vol (16.0-22.0); Oxygen Saturation ABG 92.7 % (95-97); Oxyhemoglobin 90.3 % (94-100); PCO2 ABG 55.8 mmHg (35-45); PO2 ABG 63.4 mmHg (75-85); Total Hemoglobin 12.4 g/dL (12.0-18.0); pH ABG 7.38 (7.35-7.45)
[2023-03-27 08:00] LABS: Device NASAL CANNULA; Modified Allen's Test Pass; Site Drawn LEFT RADIAL
[2023-03-27] MEDS: predniSONE 20 MG TABLET 40 MG PO (08:49)
[2023-03-27] MEDS: POTASSIUM CHLORIDE 20 MEQ ER TABLET 40 MEQ PO (08:49)
[2023-03-27] MEDS: ENOXAPARIN 40 MG/0.4 ML SYRINGE SUB-Q (08:49)
[2023-03-27] MEDS: ESCITALOPRAM OXALATE 10 MG TABLET 20 MG PO (08:50)
[2023-03-27] MEDS: HYDROcodone/acetaminophen (*CRX) 10-325 MG TABLET 1 TAB PO ×3 (08:50→21:15)
[2023-03-27] MEDS: NICOTINE (*PBKC) 21 MG PATCH 1 PATCH TRANSDERM (09:58)
[2023-03-27] MEDS: IPRATROPIUM 0.5 MG/ALBUTEROL SULFATE 2.5 MG AMPUL.NEB 3 ML INHALATION ×2 (11:03→18:44)
[2023-03-27] MEDS: methylPREDNISolone SOD SUCC 125 MG VIAL 62.5 MG IV PUSH ×2 (15:04→21:22)
[2023-03-27] MEDS: LOVASTATIN 10 MG TABLET PO (21:16)
[2023-03-27] MEDS: ARIPiprazole 5 MG TABLET PO (21:16)
[2023-03-27] MEDS: traZODone HCL 50 MG TABLET 200 MG PO (21:17)
[2023-03-27] MEDS: MIRTAZAPINE 15 MG TABLET 30 MG PO (21:17)
[2023-03-28] VITALS (10 sets, daily range): BP systolic 135–151; BP diastolic 76–85; PULSE 80–96; RESP 17–20; TEMP 36.6–36.9; O2SAT 87–100
[2023-03-28] MEDS: IPRATROPIUM 0.5 MG/ALBUTEROL SULFATE 2.5 MG AMPUL.NEB 3 ML INHALATION ×2 (00:30→05:38)
[2023-03-28 05:18] LABS: Basophils Absolute Auto 0.02 K/mm3 (0.00-0.10); Basophils Percent Auto 0.2 % (0.0-1.0); Eosinophils Absolute Auto 0.01 K/mm3 (0.02-0.50); Eosinophils Percent Auto 0.1 % (1.0-6.0); Hematocrit 38.4 % (35.0-42.0); Hemoglobin 12.9 g/dL (11.7-13.8); Immature Granulocyte Absolute 0.13 K/mm3 (0.00-0.00); Immature Granulocyte Percent A 1.4 % (0.0-0.0); Lymphocytes Absolute Auto 0.71 K/mm3 (1.10-4.50); Lymphocytes Percent Auto 7.5 % (18.0-42.0); Mean Corpuscular HGB Conc 33.6 g/dL (32.0-36.0); Mean Corpuscular Hemoglobin 31.7 pg (27.0-31.0); Mean Corpuscular Volume 94.3 fL (78.0-102.0); Mean Platelet Volume 8.9 fl (9.2-11.8); Monocytes Absolute Auto 0.43 K/mm3 (0.10-0.90); Monocytes Percent Auto 4.5 % (2.0-11.0); Neutrophils Absolute Auto 8.2 K/mm3 (1.7-7.2); Neutrophils Percent Auto 86.3 % (50.0-70.0); Platelet Count Result 266 K/mm3 (150-420); Red Blood Count 4.07 M/mm3 (4.20-5.40); White Blood Count 9.5 K/mm3 (4.8-10.8)
[2023-03-28 05:29] LABS: Anion Gap -1 mmol/L (8-16); Blood Urea Nitrogen 16 mg/dL (7-18); Calcium 8.6 mg/dL (8.5-10.1); Carbon Dioxide 41 mmol/L (21-32); Chloride 100 mmol/L (98-108); Estimated CRCL calculation 50 ml/min; Estimated Glomerular Filt Rate > 60; Glucose 165 mg/dL (70-99); Osmolality Calculated 295 mOsm/kg (285-295); Potassium 3.9 mmol/L (3.5-5.1); Sodium 140 mmol/L (136-145)
[2023-03-28] MEDS: methylPREDNISolone SOD SUCC 125 MG VIAL 62.5 MG IV PUSH (05:40)
[2023-03-28] MEDS: LEVOTHYROXINE SODIUM 112 MCG TABLET PO (05:41)
[2023-03-28] MEDS: HYDROcodone/acetaminophen (*CRX) 10-325 MG TABLET 1 TAB PO ×2 (05:41→11:58)
--- NOTE | 2023-03-28 05:45 | PC.NURSE ---
O2 turned off per RT following neb treatment. Will monitor. Call light in reach.
--- NOTE | 2023-03-28 06:20 | PC.NURSE ---
Patient's SpO2 @ 80-82% on room air. O2 started @ 0.5 lpm/nc and SpO2 only came up to 85%. O2 increased to 1 lpm/nc and SpO2 came up to 93%. Patient denied any shortness of breath or difficulty in breathing when SpO2 @ 80%. No distress noted. Call light in reach.
--- NOTE | 2023-03-28 07:39 | PM.IMPN ---
Progress Note: A&P Assessment and Plan (1) COPD with exacerbation: Code(s): J44.1 - Chronic obstructive pulmonary disease with (acute) exacerbation Status: Acute Assessment and Plan: History of COPD with chest x-ray findings consistent with hyperinflation, persistent productive cough with inspiratory and expiratory wheeze indicative of acute COPD exacerbation. Patient received nebulizer treatments and IV steroids in the emergency department. We will continue treatment as such and verify/restart home medications. (2) Acute respiratory failure with hypoxia and hypercapnia: Code(s): J96.01 - Acute respiratory failure with hypoxia; J96.02 - Acute respiratory failure with hypercapnia Status: Acute Assessment and Plan: Oxygen currently at 1 liter/minute nasal cannula while at rest. Patient will require home oxygen evaluation after acute phase COPD exacerbation treatment. 03/28: Home o2 walking study to be completed today (3) Tobacco use: Code(s): Z72.0 - Tobacco use Status: Acute Assessment and Plan: Nicotine patch offered. Counseled patient on smoking cessation. Reinforced Education is recommended. (4) HTN (hypertension): Code(s): I10 - Essential (primary) hypertension Status: Acute Assessment and Plan: History of hypertension on amlodipine and lisinopril. Blood pressures have been on the low side so all antihypertensives are on hold at this time. 03/18: Blood pressures reviewed and hypotension has resolved. Can resume home agents today. (5) Depression: Code(s): F32.9 - Major depressive disorder, single episode, unspecified Status: Acute Assessment and Plan: Continue home medications prescribed by her psychiatrist including Abilify, trazodone, escitalopram, mirtazapine (6) Hypothyroidism: Code(s): E03.9 - Hypothyroidism, unspecified Status: Acute Assessment and Plan: TSH is within normal range. Patient takes her thyroid medication Sunday through Sunday. This has been reordered. (7) Hypokalemia: Code(s): E87.6 - Hypokalemia Status: Acute Assessment and Plan: Initial potassium 2.5, up to 3.2 on morning labs. ER physician ordered 40 mEq daily which is not a home medication. Consider discontinuing this when potassium level reaches 4.0. 03/28: K+ 3.9. Will give morning dose today and then d/c. Plan Discontinue telemetry monitoring Respiratory home oxygen evaluation after acute phase treatment of COPD Consider IV magnesium 2g over 20 minutes for wheezing if nebs/steroids not effective Once wheezing improves, deescalate IV steroids to PO daily Levaquin 750 mg PO Q48 hours appropriate per discussion with ID Pharmacist Diet: Regular Activity: up ad florentin DVT Prophylaxis: Lovenox GI prophylaxis: N/A Lines: PIV Code Status: Full Code Disposition: Change admission to inpatient status due to hypoxic/hypercapnic respiratory failure. Estimated length of stay 2-4 days. Subjective Date/time seen: 03/28/23 07:39 Interval history: HPI obtained from the chart, This is a 67-year-old female patient past medical history of COPD, depression, hypertension, hypothyroidism and tobacco abuse presents with persistent cough and shortness of breath.? Patient reports that the cough has been present for several years but worsening over the last few weeks.? It is productive with clear sputum.? She denies fever chills.? Patient denies any chest pain abdominal pain nausea vomiting constipation diarrhea bowel or bladder problems.? She does not have a history blood.? She does not use oxygen at home but has remained on oxygen since arrival to the emergency department.? Emergency department workup was concerning for elevated white blood cell count and decreased potassium.? Viral swabs were negative room air saturation was 80 86%.? Patient started on oral 750 mg every 48 hours by the emergency department physician.? Patient rep
--- NOTE | 2023-03-28 08:07 | HOMEO2EVAL ---
Evaluation was performed at [facility] [place] Home Oxygen Evaluation RC: Home Oxygen (O2) Evaluation Start: 03/28/23 07:43 Freq: ONCE Status: Active Protocol: RPE Activity Type Activity Date Activity User E-sign Co-sign Detail Recorded Client Recorded Date Recorded By Document 03/28/23 07:50 [email or web address] 03/28/23 08:07 SJB Document 03/28/23 07:55 [email or web address] [email or web address] 03/28/23 08:07 SJB Document 03/28/23 08:00 [email or web address] [email or web address] 03/28/23 08:07 SJB 03/28/23 03/28/23 03/28/23 07:50 07:55 08:00 Home O2 Evaluation [Oxygen] -Test Phase Resting Exercise Exercise -Oxygen Delivery Room Air Room Air Nasal Cannula -Oxygen Flow Rate (L/min) 1 [Pulse Oximetry] -Pulse Oximetry (90-100 %) 93 87 L 92 [Pulse Rate] -Pulse Rate (60-100 beats/min) 81 92 96 [Evaluation] -Activity Tolerance Excellent Excellent -Rating of Perceived Dyspnea (PD) +1 Mild, +1 Mild, Noticeable to Noticeable to the Participant the Participant but Not to an but Not to an Observer Observer -Rate of Perceived Exertion (PE) 11 Fairly light 11 Fairly light Query Text:Click the Protocol Button to View the RPE Scale [Exercise] -Ambulation Distance (feet) 175 175 -Ambulation Distance (meters) 53.33 53.33 [Comments] -Home Oxygen Evaluation Comments Will begin walk After walking Walked a total on r/a pushing 175 ft on r/a, of approx 350 wheelchair. pt's Sp02 ft, finishing dropped to 87%. on 1 lpm with Will start on Sp02s staying 1 lpm. between 90-94%. Pt did great PLB and understands the benefits. [Charges] -Treatment Charges O2 Evaluation - Inpatient
[2023-03-28] MEDS: NICOTINE (*PBKC) 21 MG PATCH 1 PATCH TRANSDERM (08:56)
[2023-03-28] MEDS: lisinopriL 10 MG TABLET 30 MG BY MOUTH (08:57)
[2023-03-28] MEDS: ESCITALOPRAM OXALATE 10 MG TABLET 20 MG PO (08:57)
[2023-03-28] MEDS: POTASSIUM CHLORIDE 20 MEQ ER TABLET 40 MEQ PO (08:57)
[2023-03-28] MEDS: amLODIPine BESYLATE 5 MG TABLET 10 MG BY MOUTH (08:58)
--- NOTE | 2023-03-28 09:05 | PM.DS ---
DS: Admitting Diagnosis Discharge Date 03/28 Admitting Diagnosis COPD exacerbation DS: Discharge Diagnosis Discharge Diagnosis (1) COPD with exacerbation: Code(s): J44.1 - Chronic obstructive pulmonary disease with (acute) exacerbation Status: Acute Assessment and Plan: History of COPD with chest x-ray findings consistent with hyperinflation, persistent productive cough with inspiratory and expiratory wheeze indicative of acute COPD exacerbation. Patient received nebulizer treatments and IV steroids in the emergency department. We will continue treatment as such and verify/restart home medications. (2) Acute respiratory failure with hypoxia and hypercapnia: Code(s): J96.01 - Acute respiratory failure with hypoxia; J96.02 - Acute respiratory failure with hypercapnia Status: Acute Assessment and Plan: Oxygen currently at 1 liter/minute nasal cannula while at rest. Patient will require home oxygen evaluation after acute phase COPD exacerbation treatment. 03/28: Home o2 walking study to be completed today (3) Tobacco use: Code(s): Z72.0 - Tobacco use Status: Acute Assessment and Plan: Nicotine patch offered. Counseled patient on smoking cessation. Reinforced Education is recommended. (4) HTN (hypertension): Code(s): I10 - Essential (primary) hypertension Status: Acute Assessment and Plan: History of hypertension on amlodipine and lisinopril. Blood pressures have been on the low side so all antihypertensives are on hold at this time. 03/18: Blood pressures reviewed and hypotension has resolved. Can resume home agents today. (5) Depression: Code(s): F32.9 - Major depressive disorder, single episode, unspecified Status: Acute Assessment and Plan: Continue home medications prescribed by her psychiatrist including Abilify, trazodone, escitalopram, mirtazapine (6) Hypothyroidism: Code(s): E03.9 - Hypothyroidism, unspecified Status: Acute Assessment and Plan: TSH is within normal range. Patient takes her thyroid medication Sunday through Sunday. This has been reordered. (7) Hypokalemia: Code(s): E87.6 - Hypokalemia Status: Acute Assessment and Plan: Initial potassium 2.5, up to 3.2 on morning labs. ER physician ordered 40 mEq daily which is not a home medication. Consider discontinuing this when potassium level reaches 4.0. 03/28: K+ 3.9. Will give morning dose today and then d/c. Plan Discontinue telemetry monitoring Respiratory home oxygen evaluation after acute phase treatment of COPD Consider IV magnesium 2g over 20 minutes for wheezing if nebs/steroids not effective Once wheezing improves, deescalate IV steroids to PO daily Levaquin 750 mg PO Q48 hours appropriate per discussion with ID Pharmacist Diet: Regular Activity: up ad florentin DVT Prophylaxis: Lovenox GI prophylaxis: N/A Lines: PIV Code Status: Full Code Disposition: Change admission to inpatient status due to hypoxic/hypercapnic respiratory failure. Estimated length of stay 2-4 days. DS: Summary Hospital Course Hospital Course: This is a 67-year-old female patient past medical history of COPD, depression, hypertension, hypothyroidism and tobacco abuse presents with persistent cough and shortness of breath.? Patient reports that the cough has been present for several years but worsening over the last few weeks.? It is productive with clear sputum.? She denies fever chills.? Patient denies any chest pain abdominal pain nausea vomiting constipation diarrhea bowel or bladder problems.? She does not have a history blood.? She does not use oxygen at home but has remained on oxygen since arrival to the emergency department.? Emergency department workup was concerning for elevated white blood cell count and decreased potassium.? Viral swabs were negative room air saturation was 80 86%.? Patient started on oral 750 mg every 48 hours by the e
[2023-03-28] MEDS: SENNA/DOCUSATE SODIUM TABLET 1 TAB PO (09:09)
--- NOTE | 2023-03-28 13:02 | PC.NURSE ---
Discharge instructions reviewed with patient. All questions Answered. Pt educated on pulse oximetry and oxygen therapy. Pt verbalizes understanding and states she will be purchasing a pulse oximeter. Pt escorted via wheelchair to front of hospital and assisted into private vehicle.
--- NOTE | 2023-03-30 10:54 | PC.NURSE ---
discharge call back completed, understood instructions, care was so nice, very helpful and informative, good experience
== END 2023-03-28 13:00 | disposition home or self-care (01) | DRG 190 ==
LOC: CHSED 17:21 → CHS2ND 18:38
PROVIDERS: Nurse Practitioner; Admitting Provider Internal Medicine; Emergency Provider Student in an Organized Health Care Education/Training Program; PCP Internal Medicine; Visit Provider Internal Medicine
DX: J44.1 Chronic obstructive pulmonary disease with (acute) exacerbation (principal); J96.01 Acute respiratory failure with hypoxia; J96.02 Acute respiratory failure with hypercapnia; I10 Essential (primary) hypertension; E03.9 Hypothyroidism, unspecified; E87.6 Hypokalemia; F17.210 Nicotine dependence, cigarettes, uncomplicated; F32.9 Major depressive disorder, single episode, unspecified
CPT/HCPCS: 36415; 36600; 71046; 80048; 80053; 82805; 83735; 83880; 84443; 84484; 85025; 85610; 85730; 87637; 93005; 94618; 94640; 96372; 96374; 99285; A9270; G0378; J1650; J2405; J2930; J7512

== ENCOUNTER 2023-05-25 11:49 | Emergency (ER) | payer MEDICARE, SELFPAY ==
[2023-05-25] VITALS (24 sets, daily range): BP systolic 140–166; BP diastolic 65–84; PULSE 75–89; RESP 17–21; TEMP 36.9; O2SAT 94–100
--- NOTE | ~2023-05-25 | XR_ITS ---
XR chest 1V portable DATE: 05/25/2023 12:42 INDICATION: Shortness of breath for a few weeks. Generalized body aches. History of COPD. TECHNIQUE: Portable upright AP chest on 05/25/2023 at 1246 hours COMPARISON: 03/26/2023 PA and lateral chest FINDINGS: There is bilateral hyperinflation. No pulmonary infiltrate or consolidation, pleural effusi on or pulmonary vascular congestion or pneumothorax is detected. Heart size is within normal range. No hilar or mediastinal enlargement. Mild levoscoliosis of the thoracic spine. Degenerative spurring of the thoracic spine. IMPRESSION: Bilateral hyperinflation consistent with history of COPD No active pulmonary disease Reviewed, dictated and finalized at location B. LOPMENT ADVISOR
--- NOTE | 2023-05-25 12:11 | ECG_ITS ---
Measurements Intervals [place] Rate: 70 P: 73 MD: 144 QRS: 83 QRSD: 102 T: 73 QT: 446 QTc: 482 Interpretive Statements SINUS RHYTHM INCOMPLETE RIGHT BUNDLE BRANCH BLOCK DELAYED PRECORDIAL R/S TRANSITION MINIMAL Q WAVES- INFERIOR LEADS BORDERLINE T WAVE ABNORMALITY- ANTERIOR LEADS BORDERLINE ECG COMPARED TO ECG 03/26/2023 16:48:55 NO SIGNIFICANT CHANGES Electronically Signed On 05-25-2023 12:54:21 GEOSPATIAL DEVELOPER by Doron Antony D.O.
--- NOTE | 2023-05-25 12:18 | ED.SOB ---
HPI - SOB/Dyspnea General Chief Complaint: Shortness of Breath/Dyspnea Stated Complaint: short of breath Time Seen by Provider: 05/25/23 11:53 Source: patient Mode of arrival: ambulatory Limitations: no limitations History of Present Illness HPI Narrative: Patient is a 68-year-old female with a significant past medical history that presents today for shortness of . Patient states she feels like she has an upper respiratory infection cough, congestion, rhinorrhea, and has some shortness of breath. She states this feels the same as it did in March when she was seen in the hospital. She had an upper respiratory infection at that time as well and has shortness of breath. She does have a history of COPD. MD elicited complaint: shortness of breath and cough Pertinent past history: COPD Onset (ago): day(s) Related Data Home Medications Medication Instructions Recorded Confirmed aripiprazole 5 mg tablet (Abilify) 5 mg PO DAILY 05/11/19 05/25/23 mirtazapine 15 mg disintegrating 15 mg PO HS 05/11/19 05/25/23 tablet naloxone 4 mg/actuation nasal 4 mg intranasal PRN PRN Opioid 05/11/19 05/25/23 spray (Narcan) Overdose alendronate 70 mg tablet 70 mg WEEKLY 03/27/23 05/25/23 amlodipine 10 mg tablet 10 mg DAILY 03/27/23 05/25/23 calcitriol 0.5 mcg capsule 0.5 mcg DAILY 03/27/23 05/25/23 escitalopram oxalate 20 mg tablet 20 mg PO DAILY 03/27/23 05/25/23 hydrocodone 10 mg-acetaminophen 10 - 325 tablet TID 03/27/23 05/25/23 325 mg tablet levothyroxine 112 mcg tablet 112 mcg 5XW 03/27/23 05/25/23 lisinopril 30 mg tablet 30 mg DAILY 03/27/23 05/25/23 lovastatin 10 mg tablet 10 mg PER PKG DIR 03/27/23 05/25/23 trazodone 100 mg tablet 200 mg HS 03/27/23 05/25/23 Allergies Allergy/AdvReac Type Severity Reaction Status Date / Time Penicillins Allergy Unknown Unknown Verified 05/25/23 12:23 [facility] Past Medical History Medical History COPD (chronic obstructive pulmonary disease) Depression HTN (hypertension) Hypothyroidism Tobacco use Surgical History Surgical History H/O: hysterectomy Family History Family History Father COPD (chronic obstructive pulmonary disease) Mother Acute myocardial infarction, Onset Age: 65 Social History Social History Smoking packs per day: 0.5 Smoking cigarettes per day: 10.0 Years smoked: 55 Smoking pack-years: 27.50 Smoking status: Current every day smoker Tobacco type: cigarettes Alcohol intake: never Substance use: never Substance use type: does not use Lack of Transportation: No Lack of Food: Never True Current Housing: I Have Housing Concerned About Future Housing: No Difficulty Paying Gas/Electric Bills: No Difficulty Paying for Meds: No Currently Unemployed: No Education: High School Diploma/GED Difficulty w/ Childcare or Family Care: No Spiritual care concerns: No Course Reevaluation(s) Reevaluation #1: Patient's breathing improved after breathing treatment and steroids. She is breathing much easier and no audible wheezing. States she feels better. Replaced low potassium, gave 1L fluids. Date: 05/25/23 Reevaluation #2: COVID/FLU negative. Patient feels much better. Safely to be discharged home. Date: 05/25/23 Time: 14:22 Vital Signs Vital signs: Vital Signs Temperature 98.4 F 05/25/23 11:49 Pulse Rate 89 05/25/23 11:49 Respiratory Rate 17 05/25/23 11:49 Blood Pressure 166/84 H 05/25/23 11:49 Pulse Oximetry 97 05/25/23 11:49 Oxygen Delivery Room Air 05/25/23 11:49 Temperature 98.4 F 05/25/23 11:49 Pulse Rate 75 05/25/23 13:15 Respiratory Rate 17 05/25/23 14:01 Blood Pressure 140/71 05/25/23 14:01 Pulse Oximetry 96 05/25/23 14:01 Oxygen Delivery Room Air 05/25/23 12:29 MDM - SOB/Dyspnea Lab Data 05/25/23 12:
[2023-05-25] MEDS: IPRATROPIUM 0.5 MG/ALBUTEROL SULFATE 2.5 MG AMPUL.NEB 3 ML INHALATION ×3 (12:24→12:43)
[2023-05-25 12:29] LABS: Basophils Absolute Auto 0.02 K/mm3 (0.00-0.10); Basophils Percent Auto 0.2 % (0.0-1.0); Eosinophils Absolute Auto 0.11 K/mm3 (0.02-0.50); Eosinophils Percent Auto 1.3 % (1.0-6.0); Hematocrit 37.1 % (35.0-42.0); Hemoglobin 12.5 g/dL (11.7-13.8); Immature Granulocyte Absolute 0.06 K/mm3 (0.00-0.00); Immature Granulocyte Percent A 0.7 % (0.0-0.0); Lymphocytes Absolute Auto 1.39 K/mm3 (1.10-4.50); Lymphocytes Percent Auto 16.5 % (18.0-42.0); Mean Corpuscular HGB Conc 33.7 g/dL (32.0-36.0); Mean Corpuscular Hemoglobin 31.1 pg (27.0-31.0); Mean Corpuscular Volume 92.3 fL (78.0-102.0); Mean Platelet Volume 8.6 fl (9.2-11.8); Monocytes Absolute Auto 0.78 K/mm3 (0.10-0.90); Monocytes Percent Auto 9.3 % (2.0-11.0); Neutrophils Absolute Auto 6.1 K/mm3 (1.7-7.2); Platelet Count Result 387 K/mm3 (150-420); Red Blood Count 4.02 M/mm3 (4.20-5.40); Red Cell Distribution Width 13.8 % (11.6-14.4); White Blood Count 8.4 K/mm3 (4.8-10.8)
[2023-05-25 12:41] LABS: D Dimer 0.44 mg/L (0.19-0.50)
[2023-05-25 12:46] LABS: Lactic Acid Reflex 1.6 mmol/L (0.4-2.0)
[2023-05-25 12:51] LABS: Alanine Aminotransferase 11 U/L (14-59); Albumin Level 2.9 g/dL (3.4-5.0); Alkaline Phosphatase 67 U/L (46-116); Anion Gap 8 mmol/L (8-16); Aspartate Amino Transferase 20 U/L (15-37); Bilirubin,Total 0.5 mg/dL (0.00-1.00); Blood Urea Nitrogen 5 mg/dL (7-18); Calcium 7.5 mg/dL (8.5-10.1); Carbon Dioxide 32 mmol/L (21-32); Chloride 100 mmol/L (98-108); Estimated Glomerular Filt Rate > 60; Glucose 93 mg/dL (70-99); Magnesium 1.9 mg/dL (1.8-2.4); NT Pro B Type Natriuretic Pept 99 pg/mL (0-125); Osmolality Calculated 287 mOsm/kg (285-295); Sodium 140 mmol/L (136-145); Total Protein 5.9 g/dL (6.4-8.2); Troponin I 9.7 ng/L (0.00-60.4)
[2023-05-25 12:52] LABS: Potassium 2.5 mmol/L (3.5-5.1)
[2023-05-25] MEDS: methylPREDNISolone SOD SUCC 125 MG VIAL IV PUSH (12:57)
[2023-05-25] MEDS: KETOROLAC 30 MG/ML VIAL (*BKC) IV PUSH (12:57)
[2023-05-25] MEDS: SODIUM CHLORIDE 0.9% IV 1,000 ML 999 ML IV CONT (12:58)
[2023-05-25] MEDS: POTASSIUM CHLORIDE 20 MEQ ER TABLET 40 MEQ PO ×2 (13:09)
--- NOTE | 2023-05-25 13:36 | PC.NURSE ---
Patient ambulatory to and from bathroom with steady gait. UA obtained, taken to lab.
[2023-05-25 13:38] LABS: Appearance Urine Clear (Clear); Bilirubin Urine Negative (Negative); Blood Urine Negative (Negative); Color Urine Light Yellow (Yellow); Glucose Urine UA Negative (Negative); Ketones Urine Negative (Negative); Leukocyte Esterase Ur Negative LEU/UL (Negative); Nitrate Urine Negative (Negative); Protein Urine Negative (Negative); Specific Grav Ur <= 1.005 (1.010-1.020); Urobilinogen Urine 0.2 mg/dL (0.2-1.0)
[2023-05-25 13:48] LABS: Add Urine Microscopic? NO
[2023-05-25 13:50] LABS: SARS-CoV-2 RNA PCR Negative (Negative)
[2023-05-25 13:55] LABS: Influenza A QL RT-PCR Negative (Negative); Influenza B QL RT-PCR Negative (Negative); RSV RNA, RT-PCR Negative (Negative)
== END 2023-05-25 14:29 | disposition home or self-care (01) ==
PROVIDERS: Emergency Provider Family Medicine; PCP Internal Medicine
DX: J44.1 Chronic obstructive pulmonary disease with (acute) exacerbation (principal); J06.9 Acute upper respiratory infection, unspecified; I10 Essential (primary) hypertension; E03.9 Hypothyroidism, unspecified; Z87.891 Personal history of nicotine dependence; Z20.822 Contact with and (suspected) exposure to COVID-19
CPT/HCPCS: 36415; 71045; 80053; 81003; 83605; 83735; 83880; 84484; 85025; 85380; 87637; 93005; 94640; 96361; 96374; 96375; 99284; A9270; J1885; J2930; J7030

== ENCOUNTER 2023-06-13 12:51 | Outpatient (CLI) | payer MEDICARE, SELFPAY ==
[2023-06-13 13:06] VITALS: BP 124/78; PULSE 72; RESP 14; TEMP 36.3; O2SAT 98; BMI 21.0
[2023-06-13] MEDS: ZOLEDRONIC ACID 5 MG/100 ML 100 ML 400 MG IVPB (13:10)
--- NOTE | 2023-06-13 13:40 | PC.NURSE ---
Patient here for IV Reclast infusion. Education given. All concerns voiced. IV Reclast administered. SEE MAR. Tolerated well. Safe exit of hospital per self/ambulatory.
== END 2023-06-13 12:52 | disposition home or self-care (01) ==
PROVIDERS: PCP Internal Medicine; Visit Provider Internal Medicine
DX: M81.0 Age-related osteoporosis without current pathological fracture (principal)
CPT/HCPCS: 96374; J3489

== ENCOUNTER 2023-07-04 10:50 | Outpatient (CLI) | payer MEDICARE, SELFPAY ==
--- NOTE | 2023-07-06 13:10 | P.PCNPFT_ITS ---
PFT Procedure Performed PFT Procedure Performed Spirometry with Pre/Post Bronchodilator Plethysmography (Lung Vol) Diffusing Cap (DLCO) Flow Vol Loop PFT Interpretation DOS: 07/04/2023 REQUESTING: Luke Guzman APRN REASON FOR TESTING: COPD PULMONARY FUNCTION TESTS Results are reliable and reproducible. Spirometry: Pre-bronchodilator FVC is 2.38L, 92%, normal. Pre-bronchodilator FEV1 is 1.33L, 64%, reduced. FEV1/FVC is 56%, reduced, consistent with airflow obstruction. After bronchodilator, FVC increases by 9.9%, FVC is 2.60 L, 101% predicted. After bronchodilator, FEV1 increases 4%, 1.36 L, 66% predicted. This is decreased compared to normal. The FEV1/FVC ratio is 53% . This is a non-stat istically significant response to bronchodilator. Lung volumes: Total lung capacity is 5.78 L, 130% predicted, consistent with mild hyperinflation. Residual volume is 3.38 L, 194%, consistent with severe air trapping. RV/TLC is 59%, severely increased, consistent with severe air trapping. Diffusion: DLCO is 8.0, 50%. DLCO/VA is 2.26, 62% predicted. Flow volume loop: Coving of the expiratory limb is present. IMPRESSION: This study shows a mild obstructive ventilatory impairment without significant response to bronchodilator, mild hyperinflation, severe air trapping, moderate diffusion impairment with minimal improvement when corrected for alveolar volume. In the proper clinical setting, this pattern is compatible with COPD. Lack of response to bronchodilator should not preclude use of clinically indicated. There are no prior studies for comparison. Tara Gallegos MD
--- NOTE | 2023-07-06 13:28 | WPDSIXMINUTE ---
Six Minute Walk Procedure Procedure Performed Pulmonary Stress Test (6 min walk) Six Minute Walk Six Minute Walk: DOS: 07/04/2023 ? REQUESTING: Luke Guzman APRN ? REASON FOR TESTING:? COPD SIX MINUTE WALK This test was conducted per ATS guidelines. The initial saturation was 94%, and initial heart rate was 83 beats per minute. The patient walked without stopping, and she did not use any walking aids. She was breathing room air. She walked a total of 182.8 meters/ 600 ft. The saturation at the end of testing was 93%, and the heart rate at the end of the test was 91 beats per minute. The lowest saturation during the walk was 90% at the 5 minute luis. IMPRESSION: This is a normal study without angelica hypoxemia. The patient did not require supplemental oxygen with exertion. The distance walked is less than expected for her age. Clinical correlation is recommended. Tara Gallegos MD
== END 2023-07-04 10:51 | disposition home or self-care (01) ==
LOC: CHSCARD 10:51
PROVIDERS: PCP Internal Medicine; Visit Provider Nurse Practitioner Family
DX: J44.9 Chronic obstructive pulmonary disease, unspecified (principal); R94.2 Abnormal results of pulmonary function studies
CPT/HCPCS: 94060; 94618; 94726; 94729

== ENCOUNTER 2024-01-22 02:32 | Observation (INO) | payer MEDICARE, SELFPAY ==
[2024-01-22] VITALS (21 sets, daily range): BP systolic 146–185; BP diastolic 75–106; PULSE 73–99; RESP 13–22; TEMP 36.4–37.4; O2SAT 91–99; BMI 20.9
--- NOTE | ~2024-01-22 | CT_ITS ---
Noncontrast CT scan of the lumbar spine CLINICAL HISTORY: Back pain TECHNIQUE: Axial noncontrast imaging of the lumbar spine was performed. Sagittal and coronal reformat judy images were constructed. Dose reduction technique was used on this scan by utilizing automated ex posure control and iterative reconstruction technique. The dose-length product (DLP) was 662.05 mGy-c m. FINDINGS: No acute fracture seen. There are subtle chronic bilateral L5 pars interarticularis defects . There is 10 mm anterolisthesis of L4 over L5. No subluxation at L5-S1. At L1-L2, there is moderate degenerative disc narrowing. No significant disc bulge or herniation. No spinal canal stenosis. There is probable mild bilateral neural foraminal narrowing. At L2-L3, there is mild degenerative disc narrowing. There is minimal disc bulge and mild facet arthr opathy. No central canal stenosis. Neural foramina are probably preserved. At L3-L4, there is mild disc bulge and mild facet arthropathy. No central canal stenosis. Neural fora bailey are probably preserved. At L4-L5, there is disc bulge/uncovering with severe facet arthropathy. There is focal mild central c anal stenosis related to the listhesis. There is severe right neural foraminal narrowing, and moderat e left neural foraminal narrowing. At L5-S1, there is no significant disc bulge or herniation. No spinal canal stenosis or left neural f oraminal narrowing. There is mild to moderate right neural foraminal narrowing. Paravertebral soft tissues are unremarkable. Impression: No acute abnormality evident. 10 mm anterolisthesis of L4 over L5. Probable subtle chronic L5 pars interarticularis defects bilaterally. Degenerative spondylosis, as above, worst at L4-L5. Reviewed, dictated and finalized at [facility]. Impression: No acute abnormality evident. 10 mm anterolisthesis of L4 over L5. Probable subtle chronic L5 pars interarticularis defects bilaterally. Degenerative spondylosis, as above, worst at L4-L5.
--- NOTE | ~2024-01-22 | CT_ITS ---
Clinical Indication: Dyspnea CT Scan of the Chest with Contrast: Technique: Contiguous sections were acquired throughout the chest after intravenous administration of 100 cc of Omnipaque 350. Dose reduction technique was used on this scan by utilizing automated expos ure control and iterative reconstruction technique. The dose-length product (DLP) was 160.24 mGy-cm. COMPARISON: 02/28/2023 Findings: There is no evidence of any significant mediastinal, hilar or axillary lymphadenopathy. There may be a few very small subsegmental pulmonary emboli at the lung bases bilaterally. No large or central pul monary embolus. No right heart strain. There is no evidence of aortic dissection or aneurysm. There is no evidence of pleural or pericardial effusion. The lungs are clear. No pulmonary nodules or infiltrates are noted. There is advanced emphysema. Images through the upper abdomen reveal no abnormalities. Impression: Suspected small subsegmental level pulmonary emboli at the lung bases bilaterally. Advanced emphysema. Reviewed, dictated and finalized at [facility]. Impression: Suspected small subsegmental level pulmonary emboli at the lung bases bilateral ly. Advanced emphysema.
--- NOTE | 2024-01-22 02:34 | ECG_ITS ---
Test Date: 2024-01-22 02:40:42 Measurements Intervals [place] Rate: 87 P: 79 MN: 159 QRS: 82 QRSD: 101 T: 49 QT: 283 QTc: 341 Interpretive Statements SINUS RHYTHM INCOMPLETE RIGHT BUNDLE BRANCH BLOCK MINIMAL Q WAVES- ANTEROLAT/INF LEADS NONSPECIFIC ST & T-WAVE ABNORMALITY- DIFFUSE LEADS BASELINE ARTIFACT- I, II, III, AVR, AVL, AVF, V1-V6 BORDERLINE ECG No previous ECG available for comparison Electronically Signed On 01-22-2024 06:21:26 CDT by Doron Antony D.O.
--- NOTE | 2024-01-22 02:36 | PC.NURSE ---
mallory Cedeno, completing EKG
--- NOTE | 2024-01-22 02:41 | PC.NURSE ---
Dr Wills at the bedside
--- NOTE | 2024-01-22 02:46 | ED.GENADULT ---
HPI - General Adult General Chief complaint: Back Pain/Injury Stated complaint: SOB Time Seen by Provider: 01/22/24 02:36 History of Present Illness HPI narrative: Neda is a 68F with a PMH of COPD, tobacco abuse, HTN, hypothyroidism and depression that presented to the ED not feeling well for a few days. Her low back pain started to flare up a few days after she ran out of hydrocodone. It is a severe midline low back pain that does not radiate. No loss of bowel or bladder control, no lower extremity weakness/paralysis. The pain has kept her up for 1.5 days. She started having increased dyspnea and cough over the weekend as well but no sputum production. No CP, vomiting, dysuria or lightheadedness. Related Data Home Medications Medication Instructions Recorded Confirmed aripiprazole 5 mg tablet (Abilify) 5 mg PO DAILY 05/11/19 01/22/24 amlodipine 10 mg tablet 10 mg DAILY 03/27/23 01/22/24 calcitriol 0.5 mcg capsule 0.5 mcg DAILY 03/27/23 01/22/24 escitalopram oxalate 20 mg tablet 20 mg PO DAILY 03/27/23 01/22/24 levothyroxine 112 mcg tablet 112 mcg 5XW 03/27/23 01/22/24 lisinopril 30 mg tablet 30 mg DAILY 03/27/23 01/22/24 lovastatin 10 mg tablet 10 mg PO DAILY 03/27/23 01/22/24 trazodone 100 mg tablet 200 mg HS 03/27/23 01/22/24 albuterol sulfate 2.5 mg/3 mL 2.5 mg inhalation Q6H PRN 05/28/23 01/22/24 (0.083 %) solution for nebulization shortness of breath or wheezing mirtazapine 30 mg tablet 30 mg PO DAILY 07/27/23 01/22/24 potassium chloride 10 mEq 10 meq PO DAILY 07/27/23 01/22/24 tablet,extended release sennosides 8.6 mg-docusate sodium 1 tab PO HS PRN Constipation 01/22/24 01/22/24 50 mg tablet (Senokot-S) Allergies Allergy/AdvReac Type Severity Reaction Status Date / Time Penicillins Allergy Unknown Unknown Verified 07/27/23 11:29 Review of Systems Review of Systems: All systems reviewed & are unremarkable except as noted in HPI and below [facility] Past Medical History Medical History COPD (chronic obstructive pulmonary disease) Depression HTN (hypertension) Hypothyroidism Tobacco use Surgical History Surgical History H/O: hysterectomy Family History Family History Father COPD (chronic obstructive pulmonary disease) Mother Acute myocardial infarction, Onset Age: 65 Social History Social History Years smoked: 55 Smoking status: Current every day smoker Tobacco type: cigarettes Alcohol intake: never Substance use: never Substance use type: does not use Lack of Transportation: No Lack of Food: Never True Current Housing: I Have Housing Concerned About Future Housing: No Difficulty Paying Gas/Electric Bills: No Difficulty Paying for Meds: No Currently Unemployed: No Education: High School Diploma/GED Difficulty w/ Childcare or Family Care: No Spiritual care concerns: No Exam Const: General: cooperative, healthy appearing, comfortable, no acute distress, well developed, alert, awake and Physically active Orientation/consciousness: oriented to person, oriented to place and oriented to time Other: appears underweight HENMT: Head: normal to inspection, normocephalic and atraumatic Ears: hearing grossly normal bilaterally and external ears normal Face/Nose/Sinus: Normal external nose present Eyes: General: appearance normal, both eyes and all related structures Periorbital: periorbital findings normal Sclera: sclerae normal Pupils: Equal, round and reactive pupils present Neck: Neck: normal visual inspection Chest: Chest palpation & inspection: normal inspection of the chest Resp: Effort & Inspection: able to speak in complete sentences, labored, respiratory distress (mild), tachypneic and uses accessory muscles Other: wheezing and very prolonged expiratory phase Cardio: Jugul
--- NOTE | 2024-01-22 02:50 | PC.NURSE ---
COVID PCR obtained and taken to lab
[2024-01-22] MEDS: MORPHINE SULFATE (*CRX) 4 MG/ML INJ IV PUSH (03:01)
[2024-01-22] MEDS: methylPREDNISolone SOD SUCC 125 MG VIAL IV PUSH (03:02)
[2024-01-22 03:05] LABS: Basophils Absolute Auto 0.05 K/mm3 (0.00-0.10); Basophils Percent Auto 0.6 % (0.0-1.0); Eosinophils Absolute Auto 0.82 K/mm3 (0.02-0.50); Eosinophils Percent Auto 9.8 % (1.0-6.0); Hematocrit 38.4 % (35.0-42.0); Hemoglobin 13.4 g/dL (11.7-13.8); Immature Granulocyte Absolute 0.03 K/mm3 (0.00-0.00); Immature Granulocyte Percent A 0.4 % (0.0-0.0); Lymphocytes Absolute Auto 1.44 K/mm3 (1.10-4.50); Lymphocytes Percent Auto 17.2 % (18.0-42.0); Mean Corpuscular HGB Conc 34.9 g/dL (32-36); Mean Corpuscular Hemoglobin 32.8 pg (27.0-31.0); Mean Corpuscular Volume 93.9 fL (78.0-102.0); Mean Platelet Volume 8.8 fl (9.2-11.8); Monocytes Absolute Auto 1.06 K/mm3 (0.10-0.90); Monocytes Percent Auto 12.6 % (2.0-11.0); Neutrophils Absolute Auto 4.98 K/mm3 (1.70-7.20); Neutrophils Percent Auto 59.4 % (50.0-70.0); Platelet Count Result 278 K/mm3 (150-420); Red Blood Count 4.09 M/mm3 (4.20-5.40); Red Cell Distribution Width 13.7 % (11.6-14.4); White Blood Count 8.4 K/mm3 (4.8-10.8)
--- NOTE | 2024-01-22 03:08 | PC.NURSE ---
medicated per JUL. lab work in process. patient has call light. lights turned off for comfort. additional warm blanket was given.
[2024-01-22 03:18] LABS: Lactic Acid Reflex 2.1 mmol/L (0.4-2.0)
[2024-01-22 03:22] LABS: Alanine Aminotransferase 6 U/L (14-59); Albumin Level 3.6 g/dL (3.4-5.0); Alkaline Phosphatase 63 U/L (46-116); Anion Gap 13 mmol/L (4-12); Aspartate Amino Transferase 10 U/L (15-37); Bilirubin,Total 0.3 mg/dL (0.00-1.00); Blood Urea Nitrogen 10 mg/dL (7-18); Calcium 8.7 mg/dL (8.5-10.1); Carbon Dioxide 26 mmol/L (21-32); Chloride 103 mmol/L (98-108); Estimated CRCL calculation 31 ml/min; Estimated Glomerular Filt Rate 44; Glucose 114 mg/dL (70-99); Lipase 38 U/L (16-77); Magnesium 1.8 mg/dL (1.8-2.4); NT Pro B Type Natriuretic Pept 158 pg/mL (0-125); Osmolality Calculated 294 mOsm/kg (285-295); Sodium 142 mmol/L (136-145); Total Protein 6.3 g/dL (6.4-8.2); Troponin I 9.3 ng/L (0.00-60.4)
[2024-01-22] MEDS: IPRATROPIUM 0.5 MG/ALBUTEROL SULFATE 2.5 MG AMPUL.NEB 3 ML INHALATION (03:23)
[2024-01-22 03:24] LABS: Potassium 2.5 mmol/L (3.5-5.1)
[2024-01-22 03:32] LABS: SARS-CoV-2 RNA PCR Negative (Negative)
[2024-01-22 03:33] LABS: Influenza A QL RT-PCR Negative (Negative); Influenza B QL RT-PCR Negative (Negative); RSV RNA, RT-PCR Negative (Negative)
[2024-01-22] MEDS: POTASSIUM CHLORIDE 20 MEQ ER TABLET 40 MEQ PO (03:37)
--- NOTE | 2024-01-22 03:39 | PC.NURSE ---
patient transported to ct via wheel chair
[2024-01-22] MEDS: KCL 20 MEQ/SW 100 ML 100 ML 50 MEQ (03:43)
[2024-01-22] MEDS: SODIUM CHLORIDE 0.9% IV 500 ML 50 ML IV CONT (03:45)
[2024-01-22 04:02] LABS: Add Urine Microscopic? NO; Appearance Urine Clear (Clear); Bilirubin Urine Negative (Negative); Blood Urine Negative (Negative); Color Urine Straw (Yellow); Glucose Urine UA Negative (Negative); Ketones Urine Negative (Negative); Leukocyte Esterase Ur Negative LEU/UL (Negative); Nitrate Urine Negative (Negative); Protein Urine Negative (Negative); Urobilinogen Urine 0.2 mg/dL (0.2-1.0); pH Urine 6.5 (5.0-8.0)
--- NOTE | 2024-01-22 04:22 | PC.NURSE ---
Dr Wills at the bedside
[2024-01-22] MEDS: ENOXAPARIN 60 MG/0.6 ML SYRINGE 50 MG SUB-Q (04:29)
--- NOTE | 2024-01-22 04:36 | PC.NURSE ---
patient is resting on stretcher. wob labored. states i feel better than when i did when i came in . call light in reach.
--- NOTE | 2024-01-22 05:20 | PC.NURSE ---
patient was taken via wheel chair to the bathroom and back to room. call light in reach
--- NOTE | 2024-01-22 05:25 | PC.NURSE ---
patient requested pain medication. dr ewing notified
[2024-01-22] MEDS: MORPHINE SULFATE (*CRX) 2 MG/ML INJ IV PUSH (05:30)
[2024-01-22 05:59] LABS: Reflex Lactic Acid Yes or No Add Lactic
--- NOTE | 2024-01-22 06:11 | PC.NURSE ---
room assignment of 202 given by second floor charge nurse. lab at the bedside
[2024-01-22 06:24] LABS: Basophils Absolute Auto 0.06 K/mm3 (0.00-0.10); Basophils Percent Auto 0.7 % (0.0-1.0); Eosinophils Absolute Auto 0.22 K/mm3 (0.02-0.50); Eosinophils Percent Auto 2.7 % (1.0-6.0); Hematocrit 39.4 % (35.0-42.0); Hemoglobin 13.9 g/dL (11.7-13.8); Immature Granulocyte Absolute 0.05 K/mm3 (0.00-0.00); Immature Granulocyte Percent A 0.6 % (0.0-0.0); Lymphocytes Absolute Auto 0.67 K/mm3 (1.10-4.50); Lymphocytes Percent Auto 8.2 % (18.0-42.0); Mean Corpuscular HGB Conc 35.3 g/dL (32-36); Mean Corpuscular Hemoglobin 32.9 pg (27.0-31.0); Mean Corpuscular Volume 93.4 fL (78.0-102.0); Mean Platelet Volume 8.7 fl (9.2-11.8); Monocytes Absolute Auto 0.24 K/mm3 (0.10-0.90); Monocytes Percent Auto 2.9 % (2.0-11.0); Neutrophils Absolute Auto 6.95 K/mm3 (1.70-7.20); Neutrophils Percent Auto 84.9 % (50.0-70.0); Platelet Count Result 298 K/mm3 (150-420); Red Blood Count 4.22 M/mm3 (4.20-5.40); Red Cell Distribution Width 13.8 % (11.6-14.4); White Blood Count 8.2 K/mm3 (4.8-10.8)
[2024-01-22 06:34] LABS: Anion Gap 15 mmol/L (4-12); Blood Urea Nitrogen 10 mg/dL (7-18); Calcium 8.6 mg/dL (8.5-10.1); Carbon Dioxide 24 mmol/L (21-32); Chloride 104 mmol/L (98-108); Estimated CRCL calculation 32 ml/min; Estimated Glomerular Filt Rate 44; Glucose 156 mg/dL (70-99); Osmolality Calculated 298 mOsm/kg (285-295); Potassium 3.1 mmol/L (3.5-5.1); Sodium 143 mmol/L (136-145)
[2024-01-22 06:42] LABS: Lactic Acid 2.8 mmol/L (0.4-2.0)
--- NOTE | 2024-01-22 07:11 | ADMGEN ---
This patient, Neda Easley, was admitted to 2nd Floor Room 202-2. Patient/family oriented to hospital policies and general routines including ID bracelet, bed and alarms, pain management, procedures, bathroom and other care routines, personal items, smoking policy, room service/diet, and visiting hours. Information on how to activate the Rapid Response Team has been discussed. Patient/Family are encouraged to report perceived risks to care and to ask questions if they do not understand what they are told or what they should do.
[2024-01-22] MEDS: HYDROcodone/acetaminophen (*CRX) 5-325 MG TABLET 1 TAB PO ×3 (10:40→20:05)
--- NOTE | 2024-01-22 11:17 | PM.IMHP ---
H&P: HPI History of Present Illness Date/Time: 01/22/24 11:17 Chief Complaint: Back pain , weakness, Anxiety , Pulmonary embolus Narrative: This is a 68 year old female with a medical history of COPD, Hypertension, Depression, tobacco use, and chronic low back pain requiring narcotics at home which occasional fares up. Patient reports increased in anxiety and presented with severe back pain and some shortness of breath although it is unclear weather the shortness of breath was related to her anxiety at the time. During the admission labs revealed a potassium of 2.5, Which have since been replenished; her hgb 13.5 with a elevated d Dimer. A CTA was performed, Which identified a small pulmonary embolism in the lungs. The patient was administered Lovenox injection and will transition to Eliquis , dosed at 5 mg bid to address the Pulmonary embolus. She continue to experience pain and will be evaluated by physical therapy and occupational therapy. Her usual medication will be maintained . Additionally , her blood pressure was elevated, and clonidine was administered. Patient had her lisinopril although it was given later in the day. We will continue to monitor Review of Systems Review of Systems: back pain, shortness of breath PMFSH Past Medical History Medical History COPD (chronic obstructive pulmonary disease) Depression HTN (hypertension) Hypothyroidism Tobacco use Surgical History Surgical History H/O: hysterectomy Family History Family History Father COPD (chronic obstructive pulmonary disease) Mother Acute myocardial infarction, Onset Age: 65 Social History Social History Smoking packs per day: 1.5 Smoking cigarettes per day: 30.0 Years smoked: 50 Smoking pack-years: 75.00 Smoking status: Current every day smoker Tobacco type: cigarettes Additional smoking assessment comments: Currently down to 5 cigarettes per day for the last month. Alcohol intake: never Substance use: never Substance use type: does not use Do You Feel Safe in your Home?: Yes Lack of Transportation: No Lack of Food: Never True Current Housing: I Have Housing Concerned About Future Housing: No Difficulty Paying Gas/Electric Bills: No Difficulty Paying for Meds: No Currently Unemployed: No Education: High School Diploma/GED Difficulty w/ Childcare or Family Care: No Spiritual care concerns: No Meds Home Medications and Allergies Home Medications Medication Instructions Recorded Confirmed Type aripiprazole 5 mg tablet (Abilify) 5 mg PO DAILY 05/11/19 01/22/24 History amlodipine 10 mg tablet 10 mg DAILY 03/27/23 01/22/24 History calcitriol 0.5 mcg capsule 0.5 mcg DAILY 03/27/23 01/22/24 History escitalopram oxalate 20 mg tablet 20 mg PO DAILY 03/27/23 01/22/24 History levothyroxine 112 mcg tablet 112 mcg 5XW 03/27/23 01/22/24 History lisinopril 30 mg tablet 30 mg DAILY 03/27/23 01/22/24 History lovastatin 10 mg tablet 10 mg PO DAILY 03/27/23 01/22/24 History trazodone 100 mg tablet 200 mg HS 03/27/23 01/22/24 History albuterol sulfate 90 mcg/actuation 2 puff inhalation QID PRN 03/28/23 01/22/24 Rx aerosol inhaler shortness of breath #6.7 grams albuterol sulfate 2.5 mg/3 mL 2.5 mg inhalation Q6H PRN 05/28/23 01/22/24 History (0.083 %) solution for nebulization shortness of breath or wheezing mirtazapine 30 mg tablet 30 mg PO QHS 07/27/23 01/22/24 History potassium chloride 10 mEq 10 meq PO DAILY 07/27/23 01/22/24 History tablet,extended release umeclidinium 62.5 mcg-vilanterol 1 inh inhalation DAILY #60 ea 09/28/23 01/22/24 Rx 25 mcg/actuation powdr for inhalation (Anoro Ellipta) sennosides 8.6 mg-docusate sodium 1 tab PO HS PRN Constipation 01/22/24 01/22/24 History 50 mg tablet (Senokot-S) Allergies
--- NOTE | 2024-01-22 11:24 | PC.NURSE ---
[place] given for back pain, states some indigestion from fried food this am for breakfast, asking for tums, provider notiified
[2024-01-22] MEDS: CALCIUM CARBONATE (TUMS) 500 MG (200 MG ELEMENTAL) PO (13:20)
--- NOTE | 2024-01-22 15:57 | PC.NURSE ---
systems integration engineer notified of high bp, pt reports she has not taken her bp meds today
[2024-01-22] MEDS: lisinopriL 10 MG TABLET 30 MG PO (16:20)
[2024-01-22] MEDS: MIRTAZAPINE 15 MG TABLET 30 MG PO (20:04)
[2024-01-22] MEDS: traZODone HCL 50 MG TABLET 200 MG BY MOUTH (20:04)
[2024-01-22] MEDS: cloNIDine HCL 0.1 MG TABLET PO (20:52)
--- NOTE | 2024-01-22 22:00 | PC.NURSE ---
BP now 146/96, will hold Catapres until next vital check.
[2024-01-23] VITALS: BP 151/96; PULSE 78; RESP 18; TEMP 37.1; O2SAT 95
--- NOTE | 2024-01-23 03:30 | PC.NURSE ---
Mark Garcia NP, called to get an update on pt's condition. Information given and she said she would call back at [phone].
[2024-01-23] MEDS: HYDROcodone/acetaminophen (*CRX) 5-325 MG TABLET 1 TAB PO ×4 (03:50→16:14)
[2024-01-23 03:56] VITALS: BP 148/98; PULSE 72; PULSE 87; RESP 18; TEMP 36.9; O2SAT 94
--- NOTE | 2024-01-23 04:35 | PC.NURSE ---
Mark Garcia NP, called for an update on pt's condition. Information given and new orders were received and noted.
[2024-01-23] MEDS: LEVOTHYROXINE SODIUM 112 MCG TABLET PO (05:50)
[2024-01-23 08:00] VITALS: BP 115/85; PULSE 94; RESP 20; TEMP 36.9; O2SAT 96
[2024-01-23 08:18] LABS: Hematocrit 40.5 % (35.0-42.0); Hemoglobin 14.4 g/dL (11.7-13.8); Mean Corpuscular HGB Conc 35.6 g/dL (32-36); Mean Corpuscular Hemoglobin 32.9 pg (27.0-31.0); Mean Corpuscular Volume 92.5 fL (78.0-102.0); Mean Platelet Volume 8.6 fl (9.2-11.8); Platelet Count Result 299 K/mm3 (150-420); Red Blood Count 4.38 M/mm3 (4.20-5.40); Red Cell Distribution Width 13.8 % (11.6-14.4); White Blood Count 13.2 K/mm3 (4.8-10.8)
[2024-01-23] MEDS: ARIPiprazole 5 MG TABLET PO (08:29)
[2024-01-23] MEDS: amLODIPine BESYLATE 5 MG TABLET 10 MG BY MOUTH (08:29)
[2024-01-23] MEDS: lisinopriL 10 MG TABLET 30 MG BY MOUTH (08:29)
[2024-01-23] MEDS: LOVASTATIN 10 MG TABLET PO (08:29)
[2024-01-23] MEDS: ESCITALOPRAM OXALATE 10 MG TABLET 20 MG PO (08:30)
[2024-01-23] MEDS: APIXABAN 2.5 MG TABLET 10 MG PO (08:30)
[2024-01-23] MEDS: predniSONE 20 MG TABLET 40 MG PO (08:30)
[2024-01-23] MEDS: POTASSIUM CHLORIDE 10 MEQ ER TABLET PO (08:30)
[2024-01-23 08:40] LABS: Albumin Level 3.5 g/dL (3.4-5.0); Alkaline Phosphatase 64 U/L (46-116); Anion Gap 7 mmol/L (4-12); Aspartate Amino Transferase 19 U/L (15-37); Bilirubin,Total 0.4 mg/dL (0.00-1.00); Blood Urea Nitrogen 11 mg/dL (7-18); Carbon Dioxide 33 mmol/L (21-32); Chloride 102 mmol/L (98-108); Estimated CRCL calculation 38 ml/min; Estimated Glomerular Filt Rate 55; Glucose 112 mg/dL (70-99); Osmolality Calculated 294 mOsm/kg (285-295); Potassium 2.7 mmol/L (3.5-5.1); Sodium 142 mmol/L (136-145); Total Protein 6.3 g/dL (6.4-8.2)
[2024-01-23 08:49] LABS: Alanine Aminotransferase 10 U/L (14-59)
[2024-01-23] MEDS: KCL 20 MEQ/SW 100 ML 100 ML 50 MEQ IVPB ×2 (09:36→11:46)
[2024-01-23] MEDS: POTASSIUM CHLORIDE 20 MEQ ER TABLET 40 MEQ PO (09:36)
[2024-01-23 12:00] VITALS: BP 149/79; PULSE 84; PULSE 94; RESP 18; TEMP 36.7; O2SAT 97
--- NOTE | 2024-01-23 14:57 | PM.DS ---
DS: Admitting Diagnosis Discharge Date 01/23/2024 Admitting Diagnosis Pulmonary embolism DS: Discharge Diagnosis Discharge Diagnosis (1) Acute hypokalemia: Code(s): E87.6 - Hypokalemia Status: Acute Assessment and Plan: replenished monitor labs in am (2) Pulmonary embolism: Code(s): I26.99 - Other pulmonary embolism without acute cor pulmonale Status: Acute Assessment and Plan: Lovenox Eliquis starts today (3) Acute exacerbation of chronic low back pain: Code(s): M54.50 - Low back pain, unspecified; G89.29 - Other chronic pain Status: Acute Assessment and Plan: continue w home dose of medication (4) Emphysema of lung: Code(s): J43.9 - Emphysema, unspecified Status: Acute Assessment and Plan: continue with home medication Breathing treatment and monitor labs (5) HTN (hypertension): Code(s): I10 - Essential (primary) hypertension Status: Acute Assessment and Plan: lisinopril monitor blood pressure clondine x1 monitor. Plan Disposition: Discharged to Home DS: Summary Hospital Course Reason for hospitalization: Pulmonary Embolism Hospital Course: ADMISSION: medical chart This was a 68 year old female with a medical history of COPD, Hypertension, Depression, tobacco use, and chronic low back pain requiring narcotics at home which occasional fares up. Patient reports increased in anxiety and presented with severe back pain and some shortness of breath although it is unclear weather the shortness of breath was related to her anxiety at the time. During the admission labs revealed a potassium of 2.5, Which have since been replenished; her hgb 13.5 with a elevated d Dimer. A CTA was performed, Which identified a small pulmonary embolism in the lungs. The patient was administered Lovenox injection and will transition to Eliquis , dosed at 5 mg bid to address the Pulmonary embolus. She continue to experience pain and will be evaluated by physical therapy and occupational therapy. Her usual medication will be maintained . Additionally , her blood pressure was elevated, and clonidine was administered. Patient had her lisinopril although it was given later in the day. We will continue to monitor 01/23/2024: DISCHARGED Patient assessed day of discharge in no acute distress with mild lower back pain. Patient remained on room air and was transitioned to eliquis 10mg BID x 7 days/5mg BID then after. Patient with no other complaints did replenish her potassium prior to discharge last K+ 5.0. CC provided coupon card for margaret, I also requested a 30-day event monitor to be set-up with PCP. Patient reported she had follow-up scheduled with in the next week. Patient ambulated with PT/OT and was discharged to home reported overall improvement to symptoms at time of discharge. Status at Discharge Functional status at discharge: independent ambulation Overall status at discharge: patient is progressing back to baseline Time Spent with Patient Time attestation: Total time spent providing and/or coordinating discharge services: Time spent: Greater than 30 minutes Exam Const: General: comfortable HENMT: Ears: TM's normal bilaterally Eyes: General: appearance normal, both eyes and all related structures Resp: Effort & Inspection: normal respiratory effort Auscultation: clear to auscultation bilaterally and diminished lung sounds (right lungs) Skin: General skin exam: normal color Neuro: Speech: normal speech Extrem: General: normal to inspection Psych: Affect: normal affect Other: back pain DS: Data Data Completed and Pending Labs on day of discharge: Labs from last 24 hours 01/23/24 01/23/24 14:23 08:13 WBC 13.2 H RBC 4.38 Hgb 14.4 H Hct 40.5 MCV 92.5 MCH 32.9 H MCHC 35.6 RDW 13.8 Plt Count 299 MPV 8.6 L Sodium 142 Potassium 5.0 2.7 L Chloride 102
[2024-01-23 16:00] VITALS: BP 140/64; PULSE 94; RESP 18; TEMP 36.8; O2SAT 95
--- NOTE | 2024-01-23 16:20 | PC.NURSE ---
Discharge instructions reviewed with patient, patient verbalizes understanding. Patient taken off floor per wheelchair to vehicle.
--- NOTE | 2024-01-24 09:12 | PC.NURSE ---
discharge call back complete, states did ok but sob and seen in ED after dc, doing ok now, states hydrocodone unable to get a [facility] were out, advised to contact PMD Dr Pickett to have chronic meds refilled. No questions regarding care or dc instructions
== END 2024-01-23 16:20 | disposition home or self-care (01) ==
LOC: CHSED 06:08 → CHS2ND 06:15
PROVIDERS: Admitting Provider Internal Medicine; Emergency Provider Family Medicine; PCP Internal Medicine; Visit Provider Nurse Practitioner Family
DX: I26.99 Other pulmonary embolism without acute cor pulmonale (principal); E87.6 Hypokalemia; M54.50 Low back pain, unspecified; G89.29 Other chronic pain; J43.9 Emphysema, unspecified; J44.9 Chronic obstructive pulmonary disease, unspecified; I10 Essential (primary) hypertension; E03.9 Hypothyroidism, unspecified; F32.A Depression, unspecified; F41.9 Anxiety disorder, unspecified; F17.210 Nicotine dependence, cigarettes, uncomplicated; Z79.51 Long term (current) use of inhaled steroids; Z20.822 Contact with and (suspected) exposure to COVID-19
CPT/HCPCS: 36415; 71275; 72131; 80048; 80053; 81003; 83605; 83690; 83735; 83880; 84132; 84484; 85025; 85027; 87637; 93005; 96365; 96366; 96372; 96375; 96376; 97161; 99285; A9270; G0378; J1650; J2270; J2919; J3480; J7040; J7512; Q9967

== ENCOUNTER 2024-01-24 00:57 | Emergency (ER) | payer MEDICARE, SELFPAY ==
[2024-01-24 00:59] VITALS: BP 153/81; PULSE 104; RESP 20; TEMP 36.4; O2SAT 96
--- NOTE | 2024-01-24 01:01 | ED.BACK ---
HPI - Back Pain/Injury General Chief Complaint: Unspecified Stated Complaint: shortness of breath Time Seen by Provider: 01/24/24 01:00 Source: patient Mode of arrival: ambulatory Limitations: no limitations History of Present Illness HPI Narrative: 68-year-old female, smoker with a history of hypertension, COPD, chronic low back pain presented to the ED on 01/22/2024 for increasing anxiety, low back pain, COPD exacerbation and for a subsegmental pulmonary emboli. The patient had a CT of the lumbar spine which revealed anterolisthesis of L4/L5, L5 pars interarticularis deficit and spondylosis of the lumbar spine. The patient was discharged home on prednisone, Eliquis and Vicodin. Thirty tablets of Vicodin was called in to [facility] which does not carry [employer] 5/325. The patient developed ongoing back pain foot feet she presented to the emergency room. Her back pain is similar to her previous back pain. The patient is been on chronic pain medication for her chronic low back pain. Her shortness of breath has improved. MD elicited complaint: back pain Pertinent past history: prior back pain Onset (ago): unknown ( Chronic low back pain) Timing: constant Similar Symptoms Previously: Yes Quality: dull Location: lumbar spine Radiation: none Exacerbating factors: movement Relieving factors: immobilization Work related injury: No Related Data Home Medications Medication Instructions Recorded Confirmed aripiprazole 5 mg tablet (Abilify) 5 mg PO DAILY 05/11/19 01/22/24 amlodipine 10 mg tablet 10 mg DAILY 03/27/23 01/22/24 calcitriol 0.5 mcg capsule 0.5 mcg DAILY 03/27/23 01/22/24 escitalopram oxalate 20 mg tablet 20 mg PO DAILY 03/27/23 01/22/24 levothyroxine 112 mcg tablet 112 mcg 5XW 03/27/23 01/22/24 lisinopril 30 mg tablet 30 mg DAILY 03/27/23 01/22/24 lovastatin 10 mg tablet 10 mg PO DAILY 03/27/23 01/22/24 trazodone 100 mg tablet 200 mg HS 03/27/23 01/22/24 albuterol sulfate 2.5 mg/3 mL 2.5 mg inhalation Q6H PRN 05/28/23 01/22/24 (0.083 %) solution for nebulization shortness of breath or wheezing mirtazapine 30 mg tablet 30 mg PO QHS 07/27/23 01/22/24 sennosides 8.6 mg-docusate sodium 1 tab PO HS PRN Constipation 01/22/24 01/22/24 50 mg tablet (Senokot-S) Allergies Allergy/AdvReac Type Severity Reaction Status Date / Time Penicillins Allergy Unknown Unknown Verified 07/27/23 11:29 Review of Systems Review of Systems: All systems reviewed & are unremarkable except as noted in HPI and below Constitutional: Constitutional: Reports as per HPI and Reports no additional constitutional complaints Eyes: Eyes: Reports as per HPI and Reports no additional eye complaints ENT: Reports system reviewed and no additional complaints, except as documented and Reports as per HPI Cardiovascular: Cardiovascular: Reports as per HPI and Reports no additional cardiovascular complaints Respiratory: Respiratory: Reports cough, Reports dyspnea and Reports wheezing Gastrointestinal: Gastrointestinal: Reports as per HPI and Reports no additional gastrointestinal complaints Genitourinary: Genitourinary: Reports no additional female genitourinary complaints and Reports as per HPI Musculoskeletal: Musculoskeletal: Reports no additional musculoskeletal complaints, Reports as per HPI and Reports back pain Integumentary/Breasts: Skin/Breast: Reports system reviewed and no additional complaints, except as docu Neurologic: Reports system reviewed and no additional complaints, except as documented and Reports as per HPI Psychiatric: Psychiatric: Reports no additional psychiatric complaints and Reports as per HPI Endocrine: Endocrine: Reports no additional endocrine complaints and Reports as per HPI Hematologic/Lymphatic: Hematologic/Lymphatic: Reports no additional hematologic/lymphatic complaints and Reports as per HPI Allergic/Immunologic: Allergic/Immunologic: Reports no additional allergic/immunologic complaints and Reports as per HPI
--- NOTE | 2024-01-24 01:10 | PC.NURSE ---
Dr Pope at the bedside
[2024-01-24 01:11] VITALS: BP 151/89; PULSE 102; RESP 20; O2SAT 96
[2024-01-24] MEDS: ONDANSETRON HCL ODT 4 MG TABLET PO (01:22)
[2024-01-24] MEDS: MORPHINE SULFATE (*CRX) 4 MG/ML INJ IM (01:22)
--- NOTE | 2024-01-24 01:25 | PC.NURSE ---
pt states she was able to contact daughter in law and she will pick patient up when she is ready
[2024-01-24 01:46] VITALS: BP 137/82; PULSE 84; RESP 18; O2SAT 91
[2024-01-24 01:54] VITALS: BP 137/82; PULSE 84; RESP 18; O2SAT 93
== END 2024-01-24 01:54 | disposition home or self-care (01) ==
PROVIDERS: Emergency Provider Internal Medicine Critical Care Medicine; PCP Internal Medicine
DX: M54.50 Low back pain, unspecified (principal); G89.29 Other chronic pain; J44.9 Chronic obstructive pulmonary disease, unspecified; I10 Essential (primary) hypertension; E03.9 Hypothyroidism, unspecified
CPT/HCPCS: 96372; 99283; A9270; J2270

== ENCOUNTER 2024-06-04 15:05 | Outpatient (CLI) | payer MEDICARE, SELFPAY ==
[2024-06-04 15:24] LABS: Add Urine Microscopic? YES; Appearance Urine Clear (Clear); Basophils Absolute Auto 0.06 K/mm3 (0.00-0.10); Basophils Percent Auto 0.7 % (0.0-1.0); Bilirubin Urine Negative (Negative); Blood Urine Trace-intact (Negative); Color Urine Yellow (Yellow); Eosinophils Absolute Auto 0.13 K/mm3 (0.02-0.50); Eosinophils Percent Auto 1.6 % (1.0-6.0); Glucose Urine UA Negative (Negative); Hematocrit 42.2 % (35.0-42.0); Hemoglobin 14.1 g/dL (11.7-13.8); Immature Granulocyte Absolute 0.02 K/mm3 (0.00-0.00); Immature Granulocyte Percent A 0.2 % (0.0-0.0); Ketones Urine Negative (Negative); Leukocyte Esterase Ur Negative (Negative); Lymphocytes Absolute Auto 1.77 K/mm3 (1.10-4.50); Lymphocytes Percent Auto 21.6 % (18.0-42.0); Mean Corpuscular HGB Conc 33.4 g/dL (32-36); Mean Corpuscular Hemoglobin 33.7 pg (27.0-31.0); Mean Platelet Volume 8.9 fl (9.2-11.8); Monocytes Absolute Auto 0.97 K/mm3 (0.10-0.90); Monocytes Percent Auto 11.8 % (2.0-11.0); Neutrophils Absolute Auto 5.25 K/mm3 (1.70-7.20); Neutrophils Percent Auto 64.1 % (50.0-70.0); Nitrate Urine Negative (Negative); Platelet Count Result 250 K/mm3 (150-420); Protein Urine 1+ (Negative); Red Blood Count 4.18 M/mm3 (4.20-5.40); Red Cell Distribution Width 11.7 % (11.6-14.4); Specific Grav Ur 1.025 (1.010-1.020); Urobilinogen Urine 0.2 mg/dL (0.2-1.0); White Blood Count 8.2 K/mm3 (4.8-10.8)
[2024-06-04 15:52] LABS: Squamous Epithelial Cell Urine Few /hpf (Few); WBC Urine None seen /hpf (0-3)
[2024-06-04 15:54] LABS: Bacteria Urine Trace /hpf; RBC Urine 0-2 /hpf (0-2)
[2024-06-04 16:05] LABS: Anion Gap 11 mmol/L (4-12); Blood Urea Nitrogen 11 mg/dL (7-18); Carbon Dioxide 31 mmol/L (21-32); Chloride 102 mmol/L (98-108); Estimated Glomerular Filt Rate 47; Glucose 72 mg/dL (70-99); Osmolality Calculated 296 mOsm/kg (285-295); Potassium 3.7 mmol/L (3.5-5.1); Sodium 144 mmol/L (136-145)
--- OUTSIDE RECORDS SUMMARY | 2024-06-06 02:45 | XMS_ITS | Clinical Summary ---
Author Organization [facility] Address [address] [place] [address] Care Team Providers Care Turkey Egg Gatherer Name Role Phone Unavailable Primary Care Provider Unavailabl e Source Comments [facility],non-owned Affiliates and Associated Physician Practices is amultiple site organization consisting of ambulatory clinics and hospital sitesin [place], [place], [place] and [place]. This disclosure is being madepursuant to the Care Everywhere program and may not contain all information available regarding this patient. Last updated 18.[facility] Social History Tobacco Use Types Packs/Day Years Used Date Smoking Tobacco: Never Assessed Sex and Gender Information Value Date Recorded Sex Assigned at Not on file Gender Identity Not on file Sexual Orientation Not on file Plan of Treatment Health Maintenance Due Date Last Done Comments BONE DENSITY TESTING 1955 COLOGUARD (AGES 45-75) - COL ON CA SCREENING 1956 COLON MONITORING 1956 COLONOSCOPY - COLON CA SCREENING 1956 CT COLONOGRAPHY - COLON CA SCREENING 1955 Colorectal Cancer Screening 1956 FIT - COLON CA SCREENING 1956 FLEX SIG - COLON CA SCREENING 1956 LIPID TESTING 1956 MAMMOGRAM 1956 HEPATITIS C SCREENING 04/23/1974 DTAP/TDAP/TD VACCINES (1 - Tdap) 1975 PNEUMOCOCCAL VACCINE 50+ (1 of 1 - PCV) 2006 ZOSTER VACCINE (1 of 2) 2006 COVID-19 VACCINE ( - 2023-2 5 season) 2024 INFLUENZA VACCINE (#1) 2024 DEPRESSION SCREENING 05/14/2024 Respiratory Syncytial Virus (RSV) Vaccine Pt: or over 60 yrs (1 - 1-dose 75+ series) 2031 HEPATITIS B VACCINE Aged Out No longe r eligible based on patient's age to complete this topic HIB VACCINE Aged Out No longer eligi ble based on patient's age to complete this topic HPV VACCINE Aged Out No longer eligi ble based on patient's age to complete this topic MENINGOCOCCAL (Group B) VACCINE Aged Out No longer eligible based on patient's age to complete this topic MENINGOCOCCAL VACCINE Aged Out No ramya srinivas eligible based on patient's age to complete this topic
--- OUTSIDE RECORDS SUMMARY | 2024-06-06 02:45 | XMS_ITS | Encounter Summary ---
Author Organization [facility] Address [address] [place] [address] Care Team Providers Care Citizenship Instructor Name Role Phone Unavailable Primary Care Provider Unavailabl e Encounter Details Date Type Department Care Team (Late st Contact Info) Description 02/01/2021 Lab Requisition [facility] Care Pathology Lab [address] [place] [address] Sommer Jameson MD [address] [place], [place] [id number] Illness, unspecified Social History Tobacco Use Types Packs/Day Years Used Date Smoking Tobacco: Never Assessed Sex and Gender Information Value Date Recorded Sex Assigned at Not on file Gender Identity Not on file Sexual Orientation Not on file documented as of this encounter Plan of Treatment Not on file documented as of this encounter Procedures Procedure Name Priority Date/Time Associated Diagnosis Comments PATH CONSULT ON REFERRED CASE Routine 01/28/2021 12:18 PM CDT Illness, unspecified documented in this encounter Results * PATH CONSULT ON REFERRED CASE (01/28/2021 12:18 PM CDT) Final Diagnosis URINE, VOIDED, THIN PREP, CYTOLOGY (OSC: [id number]; 01/28/2021): - Adequate for evaluation - Negative for high grade urothelial carcinoma - Urothelial cells and squamous cells 02/02/2021 2:37 PM CDT [facility] Microscopic Description and Comment Microscopic examination substantiates the final diagnosis. 02/02/2021 2:37 PM CDT [facility] Clinical History HEMATURIA 02/02/2021 2:37 PM CDT [facility] Materials Received Prepared slide received from [facility] [id number]. All material will be returned. 02/02/2021 2:37 PM CDT [facility] Disclaimer The performance characteristics of all immunohistochemical and indirect immunofluorescence stains (if any) cited in this report were determined by the [facility] of [facility]. Some of these tests were developed by our own laboratory and have not been cleared or approved by the US Food and Drug Administration. The FDA does not require this test to go through premarket FDA review. These tests are used for clinical purposes. They should not be regarded as investigational or for research. This laboratory is certified under the Clinical Laboratory Improvement Amendments (CLIA) as qualified to perform high complexity clinical laboratory testing. This case has been personally reviewed and interpreted by the attending (teaching) pathologist. 02/02/2021 2:37 PM CDT [facility] Case Report Surgical Pathology Report ? Case: [id number] ? Authorizing Provider: ??Sommer Jameson MD ? Collected: ? 01/28/2021 12:18 PM ? Ordering Location: ? [facility] ? Received: ?02/01/2021 12:18 PM ? Pathologist: ? Bobby Martinez MD ? Specimen: ?Slide Consultation ? 02/02/2021 2:37 PM CDT [facility] Embedded Images 02/02/2021 2:37 PM CDT [facility] Pathology/Cytolo gy SURGICAL PATHOLOGY CONSULTATION AND REPORT ON REFERRED SLIDES PREPARED ELSEWHERE / Unknown 01/28/2021 12:18 PM CDT 02/01/2021 12:18 PM CDT Sommer Jameson MD LAB - PATHOLOGY/CYTO LOGY ORDERABLES Performing Organization Address City/State/[facility] Co de Phone Number [facility] [address] [phone] documented in this encounter Visit Diagnoses Diagnosis Illness, unspecified documented in this encounter
--- OUTSIDE RECORDS SUMMARY | 2024-06-06 02:45 | XMS_ITS | Clinical Summary ---
Author Organization [facility] Address [address] [place] [address]. [place], [place] [id number] [place] [address] Care Team Providers Care Speech Pathologist Name Role Phone Unavailable Primary Care Provider Unavailabl e Social History Tobacco Use Types Packs/Day Years Used Date Smoking Tobacco: Never Assessed Comments Unknown Sex and Gender Information Value Date Recorded Sex Assigned at Not on file Legal Sex Female 8:30 PM CDT Gender Identity Not on file Sexual Orientation Not on file Plan of Treatment Health Maintenance Due Date Last Done Comments Colorectal Cancer Screening Colonoscopy (10 Years) 1956 Hepatitis C 1974 DTaP, Tdap and Td Vaccines ( 1 - Tdap) 1975 Mammogram Screening 1996 Zoster Vaccines (1 of 2) 2006 Dexa Scan (General) 2021 Pneumococcal Vaccine: 65+ Ye ars (1 of 1 - PCV) 2021 COVID-19 Vaccine (2023-2 5 season) 2024 Influenza Adult (#1) 2024 RSV Immunization or 60+ Years (1 - 1-dose 75+ series) 2031 Meningococcal Vaccine Aged Out No ramya srinivas eligible based on patient's age to complete this topic RSV Immunizations Under 20 Months Aged Out No longer eligible based on patient's age to complete this topic
--- OUTSIDE RECORDS SUMMARY | 2024-06-06 02:45 | XMS_ITS | Referral Summary ---
Author Organization [facility] Address [address] [facility] [place] [address] Care Team Providers Care School Coordinator Name Role Phone Unavailable Primary Care Provider Unavailabl e Source Comments [facility],non-owned Affiliates and Associated Physician Practices is amultiple site organization consisting of ambulatory clinics and hospital sitesin [place], [place], [place] and [place]. This disclosure is being madepursuant to the Care Everywhere program and may not contain all information available regarding this patient. Last updated 18.[facility] [employer] Social History Tobacco Use Types Packs/Day Years Used Date Smoking Tobacco: Never Assessed Sex and Gender Information Value Date Recorded Sex Assigned at Not on file Gender Identity Not on file Sexual Orientation Not on file Plan of Treatment Not on file
--- OUTSIDE RECORDS SUMMARY | 2024-06-06 02:45 | XMS_ITS | Clinical Summary ---
Author Organization [facility] Address [address] [place] [id number] Care Team Providers Care Transformer Molder Name Role Phone Jc Pickett MD Primary Care Provider [phone] Allergies Active Allergy Reactions Criticality Noted Date Comments Penicillin G Hives Medium 03/02/2021 Medications calcitRIOL (ROCALTROL) 0.5 mcg capsuleIndication s:unknown Take 0.5 mcg by mouth nightly 1 Active escitalopram (LEXAPRO) 20 mg tabletIndications :major depressive disorder Take 20 mg by mouth nightly 1 Active HYDROcodone-aceta minophen (NORCO) 10-325 mg per tablet Take 1 tablet by mouth every 6 (six) hours as needed for pain 1 Active mirtazapine (REMERON) 15 mg tabletIndications :major depressive disorder Take 15 mg by mouth nightly 1 Active levothyroxine (SYNTHROID) 150 mcg tabletIndications :hypothyroidism Take 150 mcg by mouth nightly 1 Active lisinopriL (PRINIVIL,ZESTRIL ) 10 mg tabletIndications :hypertension Take 10 mg by mouth every morning 1 Active traZODone (DESYREL) 100 mg tabletIndications :sleep Take 100 mg by mouth nightly 1 Active OxyCONTIN 20 mg 12 hr abuse-deterrent tabletIndications :severe chronic pain requiring long-term opioid treatment Take 20 mg by mouth every 12 (twelve) hours 1 Active alendronate (FOSAMAX) 70 mg tabletIndications :Post-Menopausal Osteoporosis Take 70 mg by mouth once a week 1 Active potassium chloride ER 10 mEq CR tabletIndications :hypokalemia prevention Take 10 mEq by mouth nightly 1 Active acetaminophen 500 mg capsuleIndication s:Pain Take 2 capsules (1,000 mg total) by mouth every 6 (six) hours Do not take more than 1,000 mg total of Tylenol every 6 hours (take less Tylenol if you are taking your home Fontana) 30 tablet 2 Active gabapentin (NEURONTIN) 300 mg capsuleIndication s:Pain Take 1 capsule (300 mg total) by mouth 2 (two) times a day 60 capsule 2 Active Active Problems Problem Noted Date Diagnosed Date 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 L ovary not visualized. Surgically absent uterus. - CA-125 10 - s/p JANNET/BS in the 1980s for dysmenorrhea; pathology benign - No hx abnormal pap - Tumor markers ordered - Given postmenopausal with 16 cm adnexal mass plan to proceed with surgical management - Patient consented for diagnostic laparoscopy, bilateral oophorectomy, possible bilateral salpingectomy (thinks her tubes were removed), possible staging, and possible exploratory laparotomy. This procedure has been fully reviewed with the patient and written informed consent has been obtained. Risks including infection, bleeding, damage to surrounding structures, and DVT/PE were discussed including the increased risk for DVT/PE in setting of extensive smoking history. Emphysema lung Overview (05/04/2021): - Daily PPD for 50 years - Not interested in quitting - On no medications for emphysema - Counseled on importance of smoking cessation - Counseled to ensure up to date on lung cancer screening via chest imaging with PCP; patient unsure if she has had recent chest CT vs. X-ray Depression Overview (05/04/2021): - Well controlled on trazodone, escitalopram, mirazapine Hypertension Overview (05/04/2021): - Managed on 10mg lisinopril daily Chronic back pain Overview (05/04/2021): - Followed in a Pain Clinic - Regimen includes Fontana daily prn and oxycontin BID Immunizations Name Administration Dates Next Due Influenza, Unspecified 01/12/2021 Surgical History Surgery Date Site/Laterality Comments HYSTERECTOMY 05/14/1984 - 05/13/1985 with bilateral salpingectomy via pfannenstiel SECTION, LOW TRANSVERSE BACK SURGERY x2 in the past 9 years APPENDECTOMY 05/14/1984 - 05/13/1985 Medical History Medical History Date Comments Emphysema lung (HCC) HTN (hypertension) Depression PONV (postoperative nausea and vomiting) nausea only Family History Medical History Relation Name Comments Anesthesia problems Neg Hx Breast cancer Neg Hx Ovarian cancer Neg Hx Social History Tobacco Use Types Packs/Day Years Used Date Smoking Tobacco: Every Day Cigarettes 1 50 Smokeless Tobacco: Never Tobacco Cessation:Ready to Q uit: No; Counseling Given: Yes AUDIT-C Answer Date Recorded Q1: How often do you have a drink containing alc ohol? Never 05/20/2021 Average Number of Drinks Not on file 022 Q3: How often do you have si x or more drinks on one occasion? Never 05/20/2021 Comments No Sex and Gender Information Value Date Recorded Sex Assigned at Not on file Legal Sex Female 2:21 AM SHEET IRONWORKER Gender Identity Not on file Sexual Orientation Not on file Obstetrics History Para Term AB IAB SAB Ectopic Multiple Livin g Live Births 3 2 1 Date Outcome GA Total Labor Labor/2nd/3rd Weight Sex Type Anes PTL Sagrario A1 A5 Name Clin Para CS-LTra nv Para Vag-Spo nt AB Last Filed Vital Signs Vital Sign Reading Time Taken Comments Blood Pressure 138/83 06/10/2021 12:50 PM SHEET IRONWORKER Pulse 84 06/10/2021 12:50 PM SHEET IRONWORKER Temperature 36.8 ??C (98.2 ??F) 06/10/2021 12:[address] Respiratory Rate 18 06/02/2021 8:22 AM SHEET IRONWORKER Oxygen Saturation 96% 06/10/2021 12:50 PM SHEET IRONWORKER Inhaled Oxygen Concentration - - Weight 51.3 kg (113 lb) 06/10/2021 12:50 PM SHEET IRONWORKER Height 167.6 cm (5' 6 ) 05/31/2021 12:00 PM SHEET IRONWORKER Body Mass Index 18.24 05/31/2021 12:00 PM SHEET IRONWORKER Plan of Treatment Health Maintenance Due Date Last Done Comments Breast Cancer Screening-Mammogram 1956 Colon Cancer Screening-Colonoscopy 1956 Depression Screening 1956 Hepatitis C Screening 1956 Osteoporosis Screening-Bone Density Scan 1956 Hepatitis B Screening 1974 Zoster Vaccine (3 of 3) 07/25/2018 05/30/2018, 05/09 Well Visit 65+ 2021 Fall Risk Assessment 06/02/2022 06/02/2021 Pneumococcal vaccine 65+ (3 of 3 - PPSV23 or PCV20) 05/30/2023 05/30/2018, 04/15/2018, 11/26/2014, Additional history exists Covid-19 Vaccine (3 - 2023-2 5 season) 2024 08/20/2020, 07/21/2020 Influenza Vaccine (#1) 2024 , 01/12/2021, 01/14/2020, Additional history exists DTaP/Tdap/Td Vaccine (2 - Td or Tdap) 01/13/2031 01/13/2021 Insurance [employer] HMO MEDICARE [employer] SENIOR SUPPLEMENT MEDICARE [employer] SENIOR SUPPLEMENT Advance Directives For more information, please contact: [phone] * Full Code (Latest Code Status on File) Date Activated Date Inactivated Comments 05/31/2021 12:19 PM 06/02/2021 2:24 PM Care Teams Transformer Molder Relationship Specialty Start Date End Date Jc Pickett MD [address] [place] [address] PCP - General Internal Medicine 03/02/21
--- OUTSIDE RECORDS SUMMARY | 2024-06-06 02:45 | XMS_ITS | Patient Health Summary ---
Author Organization [facility] Address [address] [place] [address] Care Team Providers Care Transplanter Orchid Name Role Phone Unavailable Primary Care Provider Unavailabl e Note from [facility],non-owned Affiliates and Associated Physician Practices is amultiple site organization consisting of ambulatory clinics and hospital sitesin [place], [place], [place] and [place]. This disclosure is being madepursuant to the Care Everywhere program and may not contain all information available regarding this patient. Last updated 18.[facility] Social History Tobacco Use Types Packs/Day Years Used Date Smoking Tobacco: Never Assessed Sex and Gender Information Value Date Recorded Sex Assigned at Not on file Gender Identity Not on file Sexual Orientation Not on file Procedures * PATH CONSULT ON REFERRED CASE(Performed 01/28/2021) Performed for Illness, unspecified Results * PATH CONSULT ON REFERRED CASE (01/28/2021 12:18 PM CDT) Final Diagnosis URINE, VOIDED, THIN PREP, CYTOLOGY (OSC: [id number]; 01/28/2021): - Adequate for evaluation - Negative for high grade urothelial carcinoma - Urothelial cells and squamous cells 02/02/2021 2:37 PM CDT [facility] Microscopic Description and Comment Microscopic examination substantiates the final diagnosis. 02/02/2021 2:37 PM CDT [facility] Clinical History HEMATURIA 02/02/2021 2:37 PM CDT [facility] Materials Received Prepared slide received from [facility] [id number]. All material will be returned. 02/02/2021 2:37 PM CDT [facility] Disclaimer The performance characteristics of all immunohistochemical and indirect immunofluorescence stains (if any) cited in this report were determined by the Histopathology Laboratory of [facility]. Some of these tests were developed by [...] attending (teaching) pathologist. 02/02/2021 2:37 PM CDT [facility] Case Report Surgical Pathology Report ? Case: [id number] ? Authorizing Provider: ??Sommer Jameson MD ? Collected: ? 01/28/2021 12:18 PM ? Ordering Location: ? [facility] ? Received: ?02/01/2021 12:18 PM ? Pathologist: ? Bobby Martinez MD ? Specimen: ?Slide Consultation ? 02/02/2021 2:37 PM CDT [facility] Embedded Images 02/02/2021 2:37 PM CDT [facility] Pathology/Cytolo gy SURGICAL PATHOLOGY CONSULTATION AND REPORT ON REFERRED SLIDES PREPARED ELSEWHERE / Unknown 01/28/2021 12:18 PM CDT 02/01/2021 12:18 PM CDT Sommer Jameson MD LAB - PATHOLOGY/CYTO LOGY ORDERABLES Performing Organization Address City/State/[facility] Co de Phone Number [facility] [address] [facility]. [address] [phone]
--- OUTSIDE RECORDS SUMMARY | 2024-06-06 02:45 | XMS_ITS | Referral Summary ---
Author Organization [facility] Address [address] [place] [address] Care Team Providers Care Food Service Worker Name Role Phone Jc Pickett MD Primary Care Provider +1 [phone] Allergies Active Allergy Reactions Criticality Noted Date [...] Tylenol if you are taking your home Orefield) 30 tablet 2 Active gabapentin (NEURONTIN) 300 [...] in a Pain Clinic - Regimen includes Orefield daily prn and oxycontin BID Immunizations Name Administration Dates Next Due Influenza, Unspecified 01/12/2021 Social History Tobacco Use Types Packs/Day Years [...] on file Legal Sex Female 2:21 AM RELAY RECORD CLERK Gender Identity Not on file Sexual Orientation Not on file Last Filed Vital Signs Vital Sign Reading Time Taken Comments Blood Pressure 138/83 06/10/2021 12:50 PM RELAY RECORD CLERK Pulse 84 06/10/2021 12:50 PM RELAY RECORD CLERK Temperature 36.8 ??C (98.2 ??F) 06/10/2021 12:[address] Respiratory Rate 18 06/02/2021 8:22 AM RELAY RECORD CLERK Oxygen Saturation 96% 06/10/2021 12:50 PM RELAY RECORD CLERK Inhaled Oxygen Concentration - - Weight 51.3 kg (113 lb) 06/10/2021 12:50 PM RELAY RECORD CLERK Height 167.6 cm (5' 6 ) 05/31/2021 12:00 PM RELAY RECORD CLERK Body Mass Index 18.24 05/31/2021 12:00 PM RELAY RECORD CLERK Plan of Treatment Not on file Insurance [employer] HMO MEDICARE [facility] Address: [facility] [address] [place] [address] AET SENIOR SUPPLEMENT [facility] MEDICARE AET[employer] SENIOR SUPPLEMENT Advance Directives For more information, please contact: [phone] * Full Code (Latest Code Status on File) Date Activated Date Inactivated Comments 05/31/2021 12:19 PM 06/02/2021 2:24 PM Care Teams Food Service Worker Relationship Specialty Start Date End Date Jc Pickett MD [address] [place] [address] PCP - General Internal Medicine 03/02/21
--- OUTSIDE RECORDS SUMMARY | 2024-06-06 02:45 | XMS_ITS | Encounter Summary ---
Author Organization [facility] Address [address] [place] [address] Care Team Providers Care Email Marketer Name Role Phone Jc Pickett MD Primary Care Provider + [phone] Encounter Details Date Type Department Care Team (Late st Contact Info) Description 06/02/2021 Documentation [facility] Case Management [address] [place] [address] Luisana Lazaro RN Social History Tobacco Use Types Packs/Day Years Used Date Smoking Tobacco: Every Day Cigarettes 1 50 Smokeless Tobacco: Never AUDIT-C Answer Date Recorded Q1: How often do you have a drink containing alc ohol? Never 05/20/2021 Average Number of Drinks Not on file 022 Q3: How often do you have si x or more drinks on one occasion? Never 05/20/2021 Comments No Sex and Gender Information Value Date Recorded Sex Assigned at Not on file Legal Sex Female 2:21 AM CONTROL SYSTEMS TECHNICIAN Gender Identity Not on file Sexual Orientation Not on file documented as of this encounter Miscellaneous Notes * Plan of Care - Luisana Lazaro RN - 06/02/2021 11:11 AM CST Message sent to [facility] for follow up appt 06/10/21. Await reply. CM available for any discharge assistance. ROL SYSTEMS TECHNICIAN documented in this encounter Plan of Treatment Not on file documented as of this encounter Visit Diagnoses Not on filedocumented in this encounter Care Teams Email Marketer Relationship Specialty Start Date End Date Jc Pickett MD [address] [place] [address] PCP - General Internal Medicine 03/02/21 documented as of this encounter
== END 2024-06-04 15:06 | disposition home or self-care (01) ==
PROVIDERS: PCP Internal Medicine; Visit Provider Internal Medicine
DX: I10 Essential (primary) hypertension (principal); R82.90 Unspecified abnormal findings in urine
CPT/HCPCS: 36415; 80048; 81001; 85025; 87086; 87186

== ENCOUNTER 2024-06-09 14:57 | Outpatient (RCR) | payer MEDICARE, SELFPAY ==
--- NOTE | 2024-06-09 15:45 | PTOPEVAL1 ---
Assessment and note entered by Lencho Hankins Evaluation Information Assessment Status Evaluation ICD-10 Condition Codes (PT) Pain in low back M54.50,Radiculopathy, lumbar region M54.16 Other ICD-10 Condition Codes ( post laminectomy syndrome PT) Onset 05/26/24 Subjective Information Pt. reports that she regularly goes to pain management due to chronic back pain. She reports having had back surgery around 2012. She states that most of her pain is located in the low back. She states that pain is increased with housework and standing for long periods. She reports that she is able to sleep without pain disturbance. She reports that she can only stand for about 5-10 minute due to her back pain. She reports that she continues to drive and is able to shop. She reports that she also has emphysema which also limits her ability to stand. She states that [place] 7.5mg daily along with muscle relaxers. She reports that her goal for therapy is to reduce her low back pain. Reported Pain Level Pain Score 1: Self Report Assessment PT Clinical Summary Pt. is a 69 year old female who enters the clinic due to chronic low back pain. She presents with impaired mobility, impaired l.e. strength, impaired standing endurance, impaired flexibility and functional decline. Continued skilled PT is indicated in order to improve these areas to allow the pt. to complete household activities with improved comfort and efficiency. Plan of Care Interventions Electrical Stimulation,Hot Pack/Cold Pack,Manual Therapy,Mechanical Traction,Neuro Re-education, Therapeutic Activities,Therapeutic Exercise PT Services Indicated Yes Treatment Frequency and 2x/week x 10 visits Duration These treatments will address the objective and functional deficits as defined above. The patient will be advanced safely and appropriately in order for the patient to progress towards his/her prior level of function. Additional exercises will be introduced and as well as a comprehensive home exercise program upon discharge, if needed, ?to ensure carryover of functional gains achieved in the clinic. This treatment plan has been reviewed and agreement upon by the patient.
--- NOTE | 2024-07-14 14:47 | PTOPDC ---
Assessment and note entered by [facility] Evaluation Information Assessment Status Discharge ICD-10 Condition Codes (PT) Pain in low back M54.50,Radiculopathy, lumbar region M54.16 Other ICD-10 Condition Codes ( post laminectomy syndrome PT) Onset 05/26/24 Subjective Information Pt. reports that the spasms in her low back are gone. She reports she has been doing exercise and they are getting much easier. She reports that she is noticing that cleaning house is easier, but activity level has not changed. She reports she will continue with her HEP and she is ready for discharge at this time. Reported Pain Level Pain Score 2: Self Report Assessment PT Clinical Summary Pt. provides subjective reports of improvement, however no significant change is noted on the Oswestry. She demonstrates improve l.e. strength and flexibility, but still demonstrate poor endurance due to COPD. At this time she is encouraged to continue with her HEP and will be discharged from our care. Plan of Care PT Services Indicated No
== END 2024-07-14 15:00 | disposition home or self-care (01) ==
LOC: CHSPT 14:57
PROVIDERS: Visit Provider Nurse Practitioner Family
DX: M96.1 Postlaminectomy syndrome, not elsewhere classified (principal)
CPT/HCPCS: 97110; 97112; 97161

== ENCOUNTER 2024-06-19 12:25 | Outpatient (CLI) | payer MEDICARE, SELFPAY ==
--- NOTE | ~2024-06-19 | DEXA_ITS ---
Bone Density Report Name: DUSTIN VELASQUEZ Age: 69 Sex: Female Ethnicity: White Date of : 1955 Indication: osteopenia; hyperparathyroidism; height loss; asthma or emphysema; hysterectomy; Referring Provider: Jc Pickett Study: Bone densitometry was performed. Exam Date: June 19, 2024 Accession number: [id number] Bone Density: Region BMD T-score Z-score Classification AP Spine(L1-L4) 0.937 -1.0 1.0 Normal Femoral Neck (Left) 0.547 -2.7 -1.0 Osteoporosis Total Hip (Left) 0.816 -1.0 0.4 Normal Femoral Neck (Right) 0.604 -2.2 -0.5 Osteopenia Total Hip (Right) 0.800 -1.2 0.2 Osteopenia Femoral Neck Mean 0.575 -2.5 -0.8 Osteoporosis Total Hip Mean 0.808 -1.1 0.3 Osteopenia World Health Organization criteria for BMD impression classify patients as: Normal (T-score at or above -1.0), Osteopenia (T-score between -1.0 and -2.5), or Osteoporosis (T-score at or below -2.5). 10-year Fracture Risk: FRAX not reported because: Some T-score for Spine Total or Hip Total or Femoral Neck at or below -2.5 Previous Exams: Region Exam Age BMD T-score BMD Change BMD Change Date g/cm2 vs Baseline vs Previous AP Spine (L1-L4) 06/19/2024 69 0.937 -1.0 -0.053 (-5.3%) 0.064 (7.4%)# 02/12/2020 64 0.873 -1.6 -0.117 (-11.8% 0.014 (1.7%) 11/15/2016 61 0.859 -1.7 -0.131 (-13.2% -0.024 (-2.7%) 05/08/2014 59 0.883 -1.5 -0.107 (-10.8% -0.154 (-14.9% 02/24/2011 55 1.037 -0.1 0.047 (4.8%)* 0.047 (4.8%)* 03/22/2007 51 0.990 -0.5 Total Hip(Left) 06/19/2024 69 0.816 -1.0 -0.069 (-7.8%) 0.050 (6.5%)* 05/01/2022 67 0.766 -1.4 -0.118 (-13.4% 0.015 (1.9%)# 02/12/2020 64 0.752 -1.6 -0.133 (-15.0% -0.003 (-0.4%) 11/15/2016 61 0.754 -1.5 -0.130 (-14.7% -0.039 (-5.0%) 05/08/2014 59 0.794 -1.2 -0.091 (-10.2% -0.089 (-10.1% 02/24/2011 55 0.883 -0.5 -0.002 (-0.2%) -0.002 (-0.2%) 03/22/2007 51 0.884 -0.5 Total Hip(Right) 06/19/2024 69 0.800 -1.2 -0.046 (-5.4%) 0.050 (6.6%)* 05/01/2022 67 0.751 -1.6 -0.096 (-11.3% 0.044 (6.3%)# 02/12/2020 64 0.706 -1.9 -0.140 (-16.6% -0.059 (-7.7%) 05/08/2014 59 0.765 -1.5 -0.082 (-9.6%) -0.075 (-9.0%) 02/24/2011 55 0.840 -0.8 -0.006 (-0.7%) -0.006 (-0.7%) 03/22/2007 51 0.847 -0.8 *Denotes significance at 95% confidence level, LSC for AP Spine = 0.022 g/cm2, LSC for Total Hip = 0.027 g/cm2 # Denotes dissimilar scan types or analysis methods Clinical Information Provided by Patient: Smokes Has used the following medications: Prolia (i.e. denosumab), Vitamin D, Calcium Has the following medical conditions: Asthma or Emphysema, Hyperparathyroidism, Hysterectomy Patient maximum height was 65 Menopause Age: 51 No regular weight bearing exercise Drinks caffeinated beverages Onset of menses at age 13 Number of children 2 Impression: The patient has osteoporosis, based on the Left Femoral Neck T-score. The patient has risk factors, including: smoking. No significant bone loss was observed. Discussion: INCREASED RISK OF FRACTURE. BONE DENSITY IS UNDESIRABLY LOW AT ONE OR MORE SKELETAL SITES, CONSISTENT WITH POSTMENOPAUSAL OSTEOPOROSIS. This patient's lowest T-score meets the World Health Organization's (WHO) criteria for osteoporosis at one or more sites (T-score -2.5 or below). In untreated patients, the risk of osteoporotic fracture increases approximately two-fold for each 1.0 SD decrease in T-score. Low bone density is not the only risk factor for fracture; also consider factors such as patient's age, frailty or poor health, risk of falling, risk of injury, previous osteoporotic fracture, family history of osteoporosis, cigarette smoking, low body weight, etc. Not everyone with low bone mineral density has osteoporosis; osteomalacia and other metabolic bone disorders should also be considered. Patients who have osteoporosis should be evaluated for specific diseases and conditions (secondary causes) that may cause or contribute to bone loss. The [place] Association of Clinical Endocrinologists (AACE) and National Osteoporosis Foundation (NOF) recommend pharmacologic intervention for all postmenopausal women whose T-score is in this range. The patient should follow a healthful lifestyle (good nutrition with adequate calcium and vitamin D, and appropriate weight-bearing exercise). Follow-Up: Consider a repeat BMD and Vertebral Fracture Assessment (VFA) exam in 2 years or sooner if medically necessary, to reassess this patient's status. Reported by: LEXUS on 06/19/2024 12:47:00 PM. Reviewed, dictated and finalized at location A.
--- NOTE | ~2024-06-19 | MM_ITS ---
EXAMINATION: MM screening nina BI w anisa HISTORY: Screening TECHNIQUE: Craniocaudal and mediolateral oblique 3-D tomosynthesis images were obtained and synthetic 2-D images were generated. CAD analysis was submitted and interpreted. COMPARISON: Comparison to multiple prior studies sequentially, with oldest reviewed study dated 11/08. BREAST PARENCHYMAL COMPOSITION: Not dense: There are scattered areas of fibroglandular density. FINDINGS: There is no evidence of suspicious mass, calcification, or architectural distortion to sugg est malignancy in either breast. There has been no suspicious interval change. IMPRESSION: 1. No mammographic evidence of malignancy. 2. Recommend routine screening mammography in one year. BI-RADS Category 1: Negative Reviewed, dictated and finalized at location B. [employer]
--- OUTSIDE RECORDS SUMMARY | 2024-06-19 12:29 | XMS_ITS | Encounter Summary ---
Author Organization [facility] Address [address] [place] [address] Care Team Providers Care Gate Shear Operator Name Role Phone Unavailable Primary Care Provider Unavailabl e Encounter Details Date Type Department Care Team (Late st Contact Info) Description 02/01/2021 Lab Requisition [facility] Pathology Lab [address] [place] [address] Sommer Jameson MD [address] [place], [place] [id number] Illness, unspecified Social History Tobacco Use Types [...] Diagnosis URINE, VOIDED, THIN PREP, CYTOLOGY (OSC: [id number]; 01/28/2021): - Adequate for evaluation - Negative for high grade urothelial carcinoma - Urothelial cells and squamous cells 02/02/2021 2:37 PM CDT [facility] Microscopic Description and Comment Microscopic examination substantiates the final diagnosis. 02/02/2021 2:37 PM CDT [facility] Clinical History HEMATURIA 02/02/2021 2:37 PM CDT [facility] Materials Received Prepared slide received from [facility] [id number]. All material will be returned. 02/02/2021 2:37 PM CDT [facility] Disclaimer The performance characteristics of all immunohistochemical and indirect immunofluorescence stains (if any) cited in this report were determined by the Histopathology Laboratory of [facility]. Some of these tests were developed by [...] attending (teaching) pathologist. 02/02/2021 2:37 PM CDT [facility] Case Report Surgical Pathology Report Case: [id number] Authorizing Provider: Sommer Jameson MD Collected: 01/28/2021 12:18 PM Ordering Location: [facility] Received: 02/01/2021 12:18 PM Pathologist: Bobby Martinez MD Specimen: Slide Consultation 02/02/2021 2:37 PM CDT [facility] Embedded Images 02/02/2021 2:37 PM CDT [facility] Pathology/Cytolo gy SURGICAL PATHOLOGY CONSULTATION AND REPORT ON REFERRED SLIDES PREPARED ELSEWHERE / Unknown 01/28/2021 12:18 PM CDT 02/01/2021 12:18 PM CDT Sommer Jameson MD LAB - PATHOLOGY/CYTO LOGY ORDERABLES Performing Organization Address City/State/[facility] Co de Phone Number [facility] [address] [place], [place] [address] [phone] documented in this encounter Visit Diagnoses Diagnosis Illness, unspecified documented in this encounter
--- OUTSIDE RECORDS SUMMARY | 2024-06-19 12:29 | XMS_ITS | Patient Health Summary ---
Author Organization [facility] Address [address] [facility] [place] [address] Care Team Providers Care Speech Communication Professor Name Role Phone Unavailable Primary Care Provider Unavailabl e Note from [facility],non-owned Affiliates and Associated Physician Practices is amultiple site organization consisting of ambulatory clinics and hospital sitesin [place], [place], [place] and [place]. This disclosure is being madepursuant to the Care Everywhere program and may not contain all information available regarding this patient. Last updated 18.[facility] Social History Tobacco Use Types Packs/Day [...] Diagnosis URINE, VOIDED, THIN PREP, CYTOLOGY (OSC: [id number]; 01/28/2021): - Adequate for evaluation - Negative for high grade urothelial carcinoma - Urothelial cells and squamous cells 02/02/2021 2:37 PM CDT [facility] Microscopic Description and Comment Microscopic examination substantiates the final diagnosis. 02/02/2021 2:37 PM CDT [facility] Clinical History HEMATURIA 02/02/2021 2:37 PM CDT [facility] Materials Received Prepared slide received from [facility] [id number]. All material will be returned. 02/02/2021 2:37 PM CDT [facility] Disclaimer The performance characteristics of all immunohistochemical and indirect immunofluorescence stains (if any) cited in this report were determined by the Histopathology Laboratory of [facility]. 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 02/02/2021 2:37 PM CDT [facility] Case Report Surgical Pathology Report Case: [id number] Authorizing Provider: Sommer Jameson MD Collected: 01/28/2021 12:18 PM Ordering Location: [facility] Lab Received: 02/01/2021 12:18 PM Pathologist: Bobby Martinez MD Specimen: Slide Consultation 02/02/2021 2:37 PM CDT [facility] Embedded Images 02/02/2021 2:37 PM CDT [facility] Pathology/Cytolo gy SURGICAL PATHOLOGY CONSULTATION AND REPORT ON REFERRED SLIDES PREPARED ELSEWHERE / Unknown 01/28/2021 12:18 PM CDT 02/01/2021 12:18 PM CDT Sommer Jameson MD LAB - PATHOLOGY/CYTO LOGY ORDERABLES [facility] [address] [place] [address], [facility] [phone]
--- OUTSIDE RECORDS SUMMARY | 2024-06-19 12:29 | XMS_ITS | Clinical Summary ---
Author Organization [facility] Address [address] [place] [address] Care Team Providers Care Personnel Officer Name Role Phone Unavailable Primary Care Provider [...] of 1 - PCV) 2021 COVID-19 Vaccine ( - 2023-2 5 season) 2024 Influenza Adult (#1) 2024 RSV Immunization or 60+ Years (1 - 1-dose 75+ series) 2031 Meningococcal B Vaccine Aged Out No l onger eligible based on patient's age to complete this topic Meningococcal Vaccine Aged Out No ramya srinivas eligible based on patient's age to complete this topic RSV Immunizations Under 20 Months Aged Out No longer eligible based on patient's age to complete this topic
--- OUTSIDE RECORDS SUMMARY | 2024-06-19 12:30 | XMS_ITS | Clinical Summary ---
Author Organization [facility] Address [address] [place] [address] Care Team Providers Care Dyno Technician Name Role Phone Unavailable Primary Care Provider Unavailabl e Source Comments [facility],non-owned Affiliates and Associated Physician Practices is amultiple site organization consisting of ambulatory clinics and hospital sitesin [place], [place], [place] and [place]. This disclosure is being madepursuant to the Care Everywhere program and may not contain all information available regarding this patient. Last updated 18.[facility] Social History Tobacco Use Types Packs/Day Years [...]
--- OUTSIDE RECORDS SUMMARY | 2024-06-19 12:30 | XMS_ITS | Referral Summary ---
Author Organization [facility] Address [address] [place] [id number] Care Team Providers Care Production Support Analyst Name Role Phone Jc Pickett MD Primary Care Provider [phone] Allergies Active Allergy Reactions Criticality Noted Date [...] Tylenol if you are taking your home [place]watha) 30 tablet 2 Active gabapentin (NEURONTIN) 300 [...] in a Pain Clinic - Regimen includes [place] daily prn and oxycontin BID Immunizations Name [...] on file Legal Sex Female 2:21 AM ELECTROPLATING LABORER Gender Identity Not on file Sexual Orientation Not on file Last Filed Vital Signs Vital Sign Reading Time Taken Comments Blood Pressure 138/83 06/10/2021 12:50 PM ELECTROPLATING LABORER Pulse 84 06/10/2021 12:50 PM ELECTROPLATING LABORER Temperature 36.8 C (98.2 F) 06/10/2021 12:50 PM ELECTROPLATING LABORER Respiratory Rate 18 06/02/2021 8:22 AM ELECTROPLATING LABORER Oxygen Saturation 96% 06/10/2021 12:50 PM ELECTROPLATING LABORER Inhaled Oxygen Concentration - - Weight 51.3 kg (113 lb) 06/10/2021 12:50 PM ELECTROPLATING LABORER Height 167.6 cm (5' 6 ) 05/31/2021 12:00 PM ELECTROPLATING LABORER Body Mass Index 18.24 05/31/2021 12:00 PM ELECTROPLATING LABORER Plan of Treatment Not on file Insurance A[employer]NA [facility] [address] [place] [address] [place] [address] [place] [address] Advance Directives For more information, please contact: [phone] * Full Code (Latest Code Status on File) Date Activated Date Inactivated Comments 05/31/2021 12:19 PM 06/02/2021 2:24 PM Care Teams Production Support Analyst Relationship Specialty Start Date End Date Jc Pickett MD [address] [place] [address] PCP - General Internal Medicine 03/02/21
--- OUTSIDE RECORDS SUMMARY | 2024-06-19 12:30 | XMS_ITS | Encounter Summary ---
Author Organization [facility] Address [address] [place] [address] Care Team Providers Care Gm Name Role Phone Jc Pickett MD Primary Care Provider + [phone] Encounter Details Date Type Department Care Team (Late st Contact Info) Description 06/02/2021 Documentation [facility] Case Management [address] [place] [address] Luisana Lazaro RN Social History Tobacco Use [...] on file Legal Sex Female 2:21 AM SVP RESEARCH & EBUSINESS OPERATIONS Gender Identity Not on file Sexual Orientation Not on file documented as of this encounter Miscellaneous Notes * Plan of Care - Luisana Lazaro RN - 06/02/2021 11:11 AM CST Message sent to [facility] for follow up appt 06/10/21. Await reply. CM available for any discharge assistance. RESEARCH & EBUSINESS OPERATIONS documented in this encounter Plan of Treatment Not on file documented as of this encounter Visit Diagnoses Not on filedocumented in this encounter Care Teams Gm Relationship Specialty Start Date End Date Jc Pickett MD [address] [place] [address] PCP - General Internal Medicine 03/02/21 documented as of this encounter
--- OUTSIDE RECORDS SUMMARY | 2024-06-19 12:30 | XMS_ITS | Clinical Summary ---
Author Organization [facility] Address [address] [place] [phone] Care Team Providers Care Snow Technician Name Role Phone Jc Pickett MD Primary Care Provider +[phone] Allergies Active Allergy Reactions Criticality Noted Date [...] Tylenol if you are taking your home [place]) 30 tablet 2 Active gabapentin (NEURONTIN) 300 [...] in a Pain Clinic - Regimen includes [place] daily prn and oxycontin BID Immunizations Name [...] on file Legal Sex Female 2:21 AM GROUNDS/MAINTENANCE SPECIALIST Gender Identity Not on file Sexual Orientation [...] Comments Blood Pressure 138/83 06/10/2021 12:50 PM GROUNDS/MAINTENANCE SPECIALIST Pulse 84 06/10/2021 12:50 PM GROUNDS/MAINTENANCE SPECIALIST Temperature 36.8 C (98.2 F) 06/10/2021 12:50 PM GROUNDS/MAINTENANCE SPECIALIST Respiratory Rate 18 06/02/2021 8:22 AM GROUNDS/MAINTENANCE SPECIALIST Oxygen Saturation 96% 06/10/2021 12:50 PM GROUNDS/MAINTENANCE SPECIALIST Inhaled Oxygen Concentration - - Weight 51.3 kg (113 lb) 06/10/2021 12:50 PM GROUNDS/MAINTENANCE SPECIALIST Height 167.6 cm (5' 6 ) 05/31/2021 12:00 PM GROUNDS/MAINTENANCE SPECIALIST Body Mass Index 18.24 05/31/2021 12:00 PM GROUNDS/MAINTENANCE SPECIALIST Plan of Treatment Not on file Insurance AETNA [facility] HMO MEDICARE AETNA SENIOR SUPPLEMENT [employer] HMO MEDICARE AETNA SENIOR SUPPLEMENT Advance Directives For more information, please contact: [phone] * Full Code (Latest Code Status on File) Date Activated Date Inactivated Comments 05/31/2021 12:19 PM 06/02/2021 2:24 PM Care Teams Snow Technician Relationship Specialty Start Date End Date Jc Pickett MD [address] [place] [address] PCP - General Internal Medicine 03/02/21
--- OUTSIDE RECORDS SUMMARY | 2024-06-19 12:30 | XMS_ITS | Referral Summary ---
Author Organization [facility] Address [address] [place] [address] Care Team Providers Care Manager Supply Chain Planning Name Role Phone Unavailable Primary Care Provider Unavailabl e Source Comments [facility],non-owned Affiliates and Associated Physician Practices is amultiple site organization consisting of ambulatory clinics and hospital sitesin [place], [place], [place] and [place]. This disclosure is being madepursuant to the Care Everywhere program and may not contain all information available regarding this patient. Last updated 18.[facility] [employer] Social History Tobacco Use Types Packs/Day Years Used Date Smoking Tobacco: Never Assessed Sex and Gender Information Value Date Recorded Sex Assigned at Not on file Gender Identity Not on file Sexual Orientation Not on file Plan of Treatment Not on file
== END 2024-06-19 12:26 | disposition home or self-care (01) ==
LOC: CHSIMG 12:28
PROVIDERS: PCP Internal Medicine; Visit Provider Internal Medicine
DX: Z12.31 Encounter for screening mammogram for malignant neoplasm of breast (principal); Z78.0 Asymptomatic menopausal state; M85.89 Other specified disorders of bone density and structure, multiple sites; M81.0 Age-related osteoporosis without current pathological fracture
CPT/HCPCS: 77063; 77067; 77080

== ENCOUNTER 2024-06-26 10:37 | Outpatient (CLI) | payer MEDICARE, SELFPAY ==
--- NOTE | ~2024-06-26 | US_ITS ---
EXAM: BLADDER ULTRASOUND HISTORY: Urinary Incontinence COMPARISON: None FINDINGS: Prevoid volume of the bladder measures 8.8 mL Post void residual is 0 IMPRESSION: No post void residual, as detailed above. Reviewed, dictated and finalized at location A. [employer]
--- OUTSIDE RECORDS SUMMARY | 2024-06-26 10:56 | XMS_ITS ---
Author Organization [facility] [employer] Address [address] [facility] [address] [address] Care Team Providers Care Pc Installation Engineer Name Role Phone Malika Valdes Unavailable [phone] REASON FOR VISIT traZODone Social History Sex Assigned At : Social History Observation Description Sex Assigned At Female Encounters Encounter Location Date Provider Diagnosis [facility] [employer] [place] [id number] [facility] [address] [address] 04/29/2024 Malika Valdes Plan Of Treatment Next Appt Details Provider Name:Malika Valdes , 07/31/2024 02:30:00 PM, [facility], [address], [address], Provider Name:Malika Lucio , 12/09/2024 01:00:00 PM, [address] [place] [address], [id number], Progress Notes * DUSTIN VELASQUEZ MDOB: 6 (69 yo F)Acc No.[id number]:04/29/2024 Patient: Jordi DUSTIN ROSARIO :1955 A ge:69 Y S ex:Female Address:[facility] [address] [place], [address] * true * Date: Generated for Printi ng/Faxing/eTransmitting on: 0 06/26/2024 10:55 AM 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
--- OUTSIDE RECORDS SUMMARY | 2024-06-26 10:56 | XMS_ITS | Referral Summary ---
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 Gender Identity Not on file Sexual Orientation Not on file Last Filed Vital Signs Vital Sign Reading Time Taken Comments Blood Pressure 138/83 06/10/2021 12:50 PM AIR CARRIER INSPECTOR Pulse 84 06/10/2021 12:50 PM AIR CARRIER INSPECTOR Temperature 36.8 C (98.2 F) 06/10/2021 12:50 PM AIR CARRIER INSPECTOR Respiratory Rate 18 06/02/2021 8:22 AM AIR CARRIER INSPECTOR Oxygen Saturation 96% 06/10/2021 12:50 PM AIR CARRIER INSPECTOR Inhaled Oxygen Concentration - - Weight 51.3 kg (113 lb) 06/10/2021 12:50 PM AIR CARRIER INSPECTOR Height 167.6 cm (5' 6 ) 05/31/2021 12:00 PM AIR CARRIER INSPECTOR Body Mass Index 18.24 05/31/2021 12:00 PM AIR CARRIER INSPECTOR Plan of Treatment Not on file Insurance [employer] [facility] HMO MEDICARE AET SENIOR SUPPLEMENT O MEDICARE [employer] SENIOR SUPPLEMENT Advance Directives For more information, please contact: [phone] * Full Code (Latest Code Status on File) Date Activated Date Inactivated Comments 05/31/2021 12:19 PM 06/02/2021 2:24 PM Care Teams Professor Of Legal Studies Relationship Specialty Start Date End Date Jc Pickett MD [address] [place] [address] PCP - General Internal Medicine 03/02/21
--- OUTSIDE RECORDS SUMMARY | 2024-06-26 10:56 | XMS_ITS | Clinical Summary ---
Author Organization [facility] [employer] Address [address] [place] [address] Care Team Providers Care Support Assistant Name Role Phone Unavailable Primary Care Provider Unavailabl e Source Comments [facility] [employer],non-owned Affiliates and Associated Physician Practices is amultiple site organization consisting of ambulatory clinics and hospital sitesin [place], [place], [place] and [place]. This disclosure is being madepursuant to the Care Everywhere program and may not contain all information available regarding this patient. Last updated 18.[facility] [employer] Social History Tobacco Use Types Packs/Day Years [...]
--- OUTSIDE RECORDS SUMMARY | 2024-06-26 10:56 | XMS_ITS | Referral Summary ---
Author Organization [facility] Address [address] [place] [address] Care Team Providers Care Station Worker Name Role Phone Unavailable Primary Care Provider Unavailabl e Source Comments [facility],non-owned Affiliates and Associated Physician Practices is amultiple site organization consisting of ambulatory clinics and hospital sitesin [place], [place], [place] and [place]. This disclosure is being madepursuant to the Care Everywhere program and may not contain all information available regarding this patient. Last updated 18.[facility] [employer] Social History Tobacco Use Types Packs/Day Years Used Date Smoking Tobacco: Never Assessed Sex and Gender Information Value Date Recorded Sex Assigned at Not on file Gender Identity Not on file Sexual Orientation Not on file Plan of Treatment Not on file
--- OUTSIDE RECORDS SUMMARY | 2024-06-26 10:56 | XMS_ITS | Clinical Summary ---
Author Organization [facility] Address [address] [place] [phone] Care Team Providers Care Compliance Field Technician Name Role Phone Jc Pickett MD Primary Care Provider [phone] Allergies Active Allergy Reactions Criticality Noted Date [...] Tylenol if you are taking your home [place]) 30 tablet 2 Active gabapentin (NEURONTIN) 300 [...] in a Pain Clinic - Regimen includes [place] daily prn and oxycontin BID Immunizations Name [...] on file Legal Sex Female 2:21 AM PLANNING RN Gender Identity Not on file Sexual Orientation [...] Comments Blood Pressure 138/83 06/10/2021 12:50 PM PLANNING RN Pulse 84 06/10/2021 12:50 PM PLANNING RN Temperature 36.8 C (98.2 F) 06/10/2021 12:50 PM PLANNING RN Respiratory Rate 18 06/02/2021 8:22 AM PLANNING RN Oxygen Saturation 96% 06/10/2021 12:50 PM PLANNING RN Inhaled Oxygen Concentration - - Weight 51.3 kg (113 lb) 06/10/2021 12:50 PM PLANNING RN Height 167.6 cm (5' 6 ) 05/31/2021 12:00 PM PLANNING RN Body Mass Index 18.24 05/31/2021 12:00 PM PLANNING RN Plan of Treatment Not on file Insurance [employer] [facility] HMO MEDICARE AET[employer] SENIOR SUPPLEMENT [employer] HMO MEDICARE AET[employer] SENIOR SUPPLEMENT Advance Directives For more information, please contact: [phone] * Full Code (Latest Code Status on File) Date Activated Date Inactivated Comments 05/31/2021 12:19 PM 06/02/2021 2:24 PM Care Teams Compliance Field Technician Relationship Specialty Start Date End Date Jc Pickett MD [address] [place] [address] PCP - General Internal Medicine 03/02/21
--- OUTSIDE RECORDS SUMMARY | 2024-06-26 10:56 | XMS_ITS | Clinical Summary ---
Author Organization [facility] Address [address] [place] [address] Care Team Providers Care Supervisor Sheet Manufacturing Name Role Phone Unavailable Primary Care Provider [...]
--- OUTSIDE RECORDS SUMMARY | 2024-06-26 10:56 | XMS_ITS ---
Author Organization 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 Phone Malika Valdes Unavailable [phone] Allergies Allergen (clinical drug ingredient) Drug/Non Drug Allergy documented on EMR Reaction Allergy Type Onset Date Status Substance with penicillin structure and antibacterial mechanism of action (substance) Penicillins Unknown Drug Allergy 07/24/2023 Active REASON FOR VISIT follow up medications Medications Medication SIG (Take, Route, Frequency, Duration) Notes Start Date End Date Status OxyCONTIN 20 MG Oral 07/24/2023 Not -Taking Ramelteon 8 MG 1 tablet at bedtime as needed Orally Once a day for 30 days 05/15/2024 07/14/2024 Active Naloxone HCl 4 MG/0.1ML Nasal 07/24/2023 Not-Taking Lisinopril 10 MG Oral 07/24/2023 No t-Taking LORazepam 1 MG Oral 07/24/2023 Not- Taking Lisinopril-hydroCHLOROthia zide 10-12.5 MG Oral 07/24/2023 Not-Taking Anoro Ellipta 62.5-25 MCG/INH Inhalation 07/24/2023 Not-Taking HYDROcodone-Acetaminophen 7.5-325 MG 1 tablet as needed Oral every 6 hrs 07/24/2023 Not-Taking Doxycycline Hyclate 100 MG Oral 07/24/2023 Not-Taking Levothyroxine Sodium 150 MCG Oral 07/24/2023 Not-Taking Escitalopram Oxalate 20 MG 1 tablet Oral once a day for 90 days Active Mirtazapine 30 MG 1 tablet at bedtime Oral Once a day for 90 days Active Alendronate Sodium 70 MG Oral 07/24/2023 Not-Taking Mirtazapine 30 MG TAKE 1 TABLET BY MOUTH EVERYDAY AT BEDTIME for 90 Active Sennosides-Docusate Sodium 8.6-50 mg Oral 07/24/2023 Not-Taking Cyclobenzaprine HCl 10 MG Oral 07/24/2023 Active Levothyroxine Sodium 137 MCG Oral 07/24/2023 Active Lisinopril 30 MG Oral 07/24/2023 Ac tive Levothyroxine Sodium 112 MCG Oral 07/24/2023 Active traZODone HCl 100 MG 1 tablet Oral bedtime for 90 days GDR Active Potassium Chloride ER 20 MEQ 2 tablet with food Oral Once a day 07/24/2023 Active Calcitriol 0.5 MCG Oral 07/24/2023 Active ProAir HFA 108 (90 Base) MCG/ACT Inhalation 07/24/2023 Active amLODIPine Besylate 10 MG Oral 07/24/2023 Active Lovastatin 10 MG Oral 07/24/2023 Ac tive Eliquis 5 MG as directed Orally Active Social History Tobacco Use: Social History Observation Description Date Details (start date - stop date) Current some da y smoker NA - NA Sex Assigned At : Social History Observation Description Sex Assigned At Female Household Question Answer Notes Marital status: single Number of adults in household: 1 Level of education: retired Tobacco Control (Standard) Question Answer Notes Tobacco use: Current some day smoker How often do you smoke cigarettes? Every day AUDIT-C (Standard) Question Answer Notes Did you have a drink containing alcohol in the p ast year? No Vital Signs Blood pressure systolic 99 mm Hg 05/15/19 25 Blood pressure diastolic 69 mm Hg 025 Height 62.00 in 05/15/2024 Weight 117.0 lbs 05/15/2024 BMI 21.4 kg/m2 05/15/2024 Height-cm 157.48 cm 05/15/2024 Weight-kg 53.07 kg 05/15/2024 Encounters [facility]counter [facility] [address] [address] 05/15/2024 Malika Valdes MDD (major depressiv e disorder), recurrent episode, mild F33.0 ; Generalized anxiety disorder F41.1 ; Primary insomnia F51.01 ; Tobacco use Z72.0 and 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 Assessments Encounter Date Diagnosis (ICD Code) Assessment Notes Treatment Notes Treatment Clinical Notes Section Notes 05/15/2024 MDD (major depressive disorder), recurrent episode, mild (ICD-10 - F33.0) Learning About How to Get Help During a Mental Health Crisis material was published, Preventing Depression From Coming Back: Care Instructions material was published, Learning About Depression material was published, Preventing Depression From Coming Back: Care Instructions material was published presently taking Lexapro 20 mg daily, Remeron 30 mg bedtime, Trazodone 200 mg bedtime Depression- Lexapro 20 mg daily, Remeron 30 mg bedtime obtain labs PCP completed Anxiety- Lexapro 20 mg daily, Remeron 30 mg bedtime sleep- decreaseTrazodone 100 mg bedtime- Add Ramelteon 8 mg at bedtime educated to take all rx as prescribed educated on all rx, reported sleep issues and Trazodone not helping her sleep anymore no hx sleep study schedule to see PCP next week and review labs Tobacco use- smoking cessation education Do not smoke. Nicotine and other chemicals in cigarettes and cigars can cause lung damage. Ask your healthcare provider for information if you currently smoke and need help to quit. E-cigarettes or smokeless tobacco still contain nicotine. Talk to your healthcare provider before you use these products. education on decrease to stopping nicotine products and stop smoking hotline given http_s://www.trent.o rg/Ngbik-Eylgbi-Urr ness/Mental-Health- Conditions http_s://psychcentr [employer].com/depression/t nk-elhluffkx-oczgkd nj-tl-pxrsenxrrq#tr eatments http__s://www.nimh. nih.gov/health/topi cs/yqafby-suxjiw-uo dications http__s://www.trent. org/Kesmn-Teckqx-Vs lness/Treatments/Me lsql-Amazdu-Ibfbevu ions educated on all medications, benefits, side effects and risk, and educated on depression, anxiety, and ADHD, mood d/o and educated on compliance of medications, metabolic and movement d/o education appointment's, continue therapy discussion with patient about course of treatment and patient instructions. education on serotonin syndrome Discussed and educated pt regarding benzodiazepines are generally not intended for prolonged use and that use can cause tolerance, dependence, depression, and associated memory issues including dementias (this list is not exhaustive). Benzodiazepine use is generally not recommended concurrently with pain medications and/or other controlled substances educated on all medications, benefits, side effects and risk, and educated on depression, anxiety, and ADHD, mood d/o and educated on compliance of medications, metabolic and movement d/o education appointment is, continue therapy discussion with patient about course of treatment and patient instructions. education on serotonin syndrome SSRI/SNRI side effects discussed including but not limited to, gastric upset, nausea, vomiting, diarrhea and/or constipation, weight changes, sexual side effects including loss of libido, increased suicidal thoughts/behaviors in children and young adults, and serotonin syndrome. flu vaccine PCP office 01/28/24 COVID and RSV vaccine 02/09/24 Medication Management and Follow-Up - Plan: - Schedule follow-up appointments every 3-6 months to monitor the patient's response to the medication regimen. - Reinforce the importance of avoiding recreational drug use due to potential neurotoxicity and interactions with prescribed medications. 05/15/2024 Generalized anxiety disorder (ICD-10 - F41.1) Generalized Anxiety Disorder: Care Instructions material was published, Learning About Generalized Anxiety Disorder material was published presently taking Lexapro 20 mg daily, Remeron 30 mg bedtime, Trazodone 200 mg bedtime Depression- Lexapro 20 mg daily, Remeron 30 mg bedtime obtain labs PCP completed Anxiety- Lexapro 20 mg daily, Remeron 30 mg bedtime sleep- decreaseTrazodone 100 mg bedtime- Add Ramelteon 8 mg at bedtime educated to take all rx as prescribed educated on all rx, reported sleep issues and Trazodone not helping her sleep anymore no hx sleep study schedule to see PCP next week and review labs Tobacco use- smoking cessation education Do not smoke. Nicotine and other chemicals in cigarettes and cigars can cause lung damage. Ask your healthcare provider for information if you currently smoke and need help to quit. E-cigarettes or smokeless tobacco still contain nicotine. Talk to your healthcare provider before you use these products. education on decrease to stopping nicotine products and stop smoking hotline given http_s://www.trent.o rg/Wgkuj-Auadgl-Oel ness/Mental-Health- Conditions http_s://psychcentr al.com/depression/t ot-kgjtsnpwq-rvpyan cf-ih-ultixexzwo#tr eatments http__s://www.nimh. nih.gov/health/topi cs/rdsmrn-npjwrk-jp dications http__s://www.trent. org/Isxmz-Wdssyj-Yp lness/Treatments/Me vijv-Prkpsu-Ltdqdkr ions educated on all medications, benefits, side effects and risk, and educated on depression, anxiety, and ADHD, mood d/o and educated on compliance of medications, metabolic and movement d/o education appointment's, continue therapy discussion with patient about course of treatment and patient instructions. education on serotonin syndrome Discussed and educated pt regarding benzodiazepines are generally not intended for prolonged use and that use can cause tolerance, dependence, depression, and associated memory issues including dementias (this list is not exhaustive). Benzodiazepine use is generally not recommended concurrently with pain medications and/or other controlled substances educated on all medications, benefits, side effects and risk, and educated on depression, anxiety, and ADHD, mood d/o and educated on compliance of medications, metabolic and movement d/o education appointment is, continue therapy discussion with patient about course of treatment and patient instructions. education on serotonin syndrome SSRI/SNRI side effects discussed including but not limited to, gastric upset, nausea, vomiting, diarrhea and/or constipation, weight changes, sexual side effects including loss of libido, increased suicidal thoughts/behaviors in children and young adults, and serotonin syndrome. flu vaccine PCP office 01/28/24 COVID and RSV vaccine 02/09/24 Medication Management and Follow-Up - Plan: - Schedule follow-up appointments every 3-6 months to monitor the patient's response to the medication regimen. - Reinforce the importance of avoiding recreational drug use due to potential neurotoxicity and interactions with prescribed medications. 05/15/2024 Primary insomnia (ICD-10 - F51.01) Insomnia: Care Instructions material was published, Insomnia: Care Instructions material was published, Learning About Sleeping Well material was published presently taking Lexapro 20 mg daily, Remeron 30 mg bedtime, Trazodone 200 mg bedtime Depression- Lexapro 20 mg daily, Remeron 30 mg bedtime obtain labs PCP completed Anxiety- Lexapro 20 mg daily, Remeron 30 mg bedtime sleep- decreaseTrazodone 100 mg bedtime- Add Ramelteon 8 mg at bedtime educated to take all rx as prescribed educated on all rx, reported sleep issues and Trazodone not helping her sleep anymore no hx sleep study schedule to see PCP next week and review labs Tobacco use- smoking cessation education Do not smoke. Nicotine and other chemicals in cigarettes and cigars can cause lung damage. Ask your healthcare provider for information if you currently smoke and need help to quit. E-cigarettes or smokeless tobacco still contain nicotine. Talk to your healthcare provider before you use these products. education on decrease to stopping nicotine products and stop smoking hotline given http_s://www.trent.o rg/Lawax-Crjgbe-Ebv ness/Mental-Health- Conditions http_s://psychcentr [employer].com/depression/t oz-cuyudbhay-nncipc bj-qn-ykzjhtxntx#tr eatments http__s://www.nimh. nih.gov/health/topi cs/wnjfnj-clbqgw-ff dications http__s://www.trent. org/Ivvuh-Qvcxqq-Ky lness/Treatments/Me tzhd-Honlsf-Zbulgmd ions educated on all medications, benefits, side effects and risk, and educated on depression, anxiety, and ADHD, mood d/o and educated on compliance of medications, metabolic and movement d/o education appointment's, continue therapy discussion with patient about course of treatment and patient instructions. education on serotonin syndrome Discussed and educated pt regarding benzodiazepines are generally not intended for prolonged use and that use can cause tolerance, dependence, depression, and associated memory issues including dementias (this list is not exhaustive). Benzodiazepine use is generally not recommended concurrently with pain medications and/or other controlled substances educated on all medications, benefits, side effects and risk, and educated on depression, anxiety, and ADHD, mood d/o and educated on compliance of medications, metabolic and movement d/o education appointment is, continue therapy discussion with patient about course of treatment and patient instructions. education on serotonin syndrome SSRI/SNRI side effects discussed including but not limited to, gastric upset, nausea, vomiting, diarrhea and/or constipation, weight changes, sexual side effects including loss of libido, increased suicidal thoughts/behaviors in children and young adults, and serotonin syndrome. flu vaccine PCP office 01/28/24 COVID and RSV vaccine 02/09/24 Medication Management and Follow-Up - Plan: - Schedule follow-up appointments every 3-6 months to monitor the patient's response to the medication regimen. - Reinforce the importance of avoiding recreational drug use due to potential neurotoxicity and interactions with prescribed medications. 05/15/2024 Tobacco use (ICD-10 - Z72.0) Learning About Benefits of Quitting Smoking material was published, Deciding About Using Medicines To Quit Smoking material was published, Stopping Smokeless Tobacco Use: Care Instructions material was published, Quitting Tobacco: Care Instructions material was published, Learning About Benefits of Quitting Smoking material was published, Quitting Tobacco: Care Instructions material was published, Stopping Smokeless Tobacco Use: Care Instructions material was published, Deciding About Using Medicines To Quit Smoking material was published presently taking Lexapro 20 mg daily, Remeron 30 mg bedtime, Trazodone 200 mg bedtime Depression- Lexapro 20 mg daily, Remeron 30 mg bedtime obtain labs PCP completed Anxiety- Lexapro 20 mg daily, Remeron 30 mg bedtime sleep- decreaseTrazodone 100 mg bedtime- Add Ramelteon 8 mg at bedtime educated to take all rx as prescribed educated on all rx, reported sleep issues and Trazodone not helping her sleep anymore no hx sleep study schedule to see PCP next week and review labs Tobacco use- smoking cessation education Do not smoke. Nicotine and other chemicals in cigarettes and cigars can cause lung damage. Ask your healthcare provider for information if you currently smoke and need help to quit. E-cigarettes or smokeless tobacco still contain nicotine. Talk to your healthcare provider before you use these products. education on decrease to stopping nicotine products and stop smoking hotline given http_s://www.trent.o rg/Nmbpk-Gqjvbu-Zbw ness/Mental-Health- Conditions http_s://psychcentr al.com/depression/t tu-twizudprv-wizzjl vj-dw-evpwszabwy#tr eatments http__s://www.nimh. nih.gov/health/topi cs/uxiazx-esxddu-hi dications http__s://www.trent. org/Lbbru-Svoumw-Pa lness/Treatments/Me wlmd-Dzygmf-Plvnfol ions educated on all medications, benefits, side effects and risk, and educated on depression, anxiety, and ADHD, mood d/o and educated on compliance of medications, metabolic and movement d/o education appointment's, continue therapy discussion with patient about course of treatment and patient instructions. education on serotonin syndrome Discussed and educated pt regarding benzodiazepines are generally not intended for prolonged use and that use can cause tolerance, dependence, depression, and associated memory issues including dementias (this list is not exhaustive). Benzodiazepine use is generally not recommended concurrently with pain medications and/or other controlled substances educated on all medications, benefits, side effects and risk, and educated on depression, anxiety, and ADHD, mood d/o and educated on compliance of medications, metabolic and movement d/o education appointment is, continue therapy discussion with patient about course of treatment and patient instructions. education on serotonin syndrome SSRI/SNRI side effects discussed including but not limited to, gastric upset, nausea, vomiting, diarrhea and/or constipation, weight changes, sexual side effects including loss of libido, increased suicidal thoughts/behaviors in children and young adults, and serotonin syndrome. flu vaccine PCP office 01/28/24 COVID and RSV vaccine 02/09/24 Medication Management and Follow-Up - Plan: - Schedule follow-up appointments every 3-6 months to monitor the patient's response to the medication regimen. - Reinforce the importance of avoiding recreational drug use due to potential neurotoxicity and interactions with prescribed medications. 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 Nicotine and other chemicals in cigarettes and cigars can cause lung damage. Ask your healthcare provider for information if you currently smoke and need help to quit. E-cigarettes or smokeless tobacco still contain nicotine. Talk to your healthcare provider before you use these products. education on decrease to stopping nicotine products and stop smoking hotline given http_s://www.trent.o rg/Bazxq-Czhkpa-Qpx ness/Mental-Health- Conditions http_s://psychcentr al.com/depression/t zr-sojpfalfr-mwbdct bh-pn-lhsbgeoakj#tr eatments http__s://www.nimh. nih.gov/health/topi cs/rdltwt-psufwv-rr dications http__s://www.trent. org/Esykj-Xafuxh-Ps lness/Treatments/Me beky-Dnskxm-Bljkmjj ions educated on all medications, benefits, side effects and risk, and educated on depression, anxiety, and ADHD, mood d/o and educated on compliance of medications, metabolic and movement d/o education appointment's, continue therapy discussion with patient about course of treatment and patient instructions. education on serotonin syndrome Discussed and educated pt regarding benzodiazepines are generally not intended for prolonged use and that use can cause tolerance, dependence, depression, and associated memory issues including dementias (this list is not exhaustive). Benzodiazepine use is generally not recommended concurrently with pain medications and/or other controlled substances educated on all medications, benefits, side effects and risk, and educated on depression, anxiety, and ADHD, mood d/o and educated on compliance of medications, metabolic and movement d/o education appointment is, continue therapy discussion with patient about course of treatment and patient instructions. education on serotonin syndrome SSRI/SNRI side effects discussed including but not limited to, gastric upset, nausea, vomiting, diarrhea and/or constipation, weight changes, sexual side effects including loss of libido, increased suicidal thoughts/behaviors in children and young adults, and serotonin syndrome. flu vaccine PCP office 01/28/24 COVID and RSV vaccine 02/09/24 Medication Management and Follow-Up - Plan: - Schedule follow-up appointments every 3-6 months to monitor the patient's response to the medication regimen. - Reinforce the importance of avoiding recreational drug use due to potential neurotoxicity and interactions with prescribed medications. 05/15/2024 Other Mirtazapine Oral Tablet (MIRTAZAPINE - ORAL) material was published, Escitalopram Oral Tablet (ESCITALOPRAM - ORAL) material was published, Trazodone Oral Tablet (TRAZODONE - ORAL) material was published, Ramelteon Oral Tablet (RAMELTEON - ORAL) material was published presently taking Lexapro 20 mg daily, Remeron 30 mg bedtime, Trazodone 200 mg bedtime Depression- Lexapro 20 mg daily, Remeron 30 mg bedtime obtain labs PCP completed Anxiety- Lexapro 20 mg daily, Remeron 30 mg bedtime sleep- decreaseTrazodone 100 mg bedtime- Add Ramelteon 8 mg at bedtime educated to take all rx as prescribed educated on all rx, reported sleep issues and Trazodone not helping her sleep anymore no hx sleep study schedule to see PCP next week and review labs Tobacco use- smoking cessation education Do not smoke. Nicotine and other chemicals in cigarettes and cigars can cause lung damage. Ask your healthcare provider for information if you currently smoke and need help to quit. E-cigarettes or smokeless tobacco still contain nicotine. Talk to your healthcare provider before you use these products. education on decrease to stopping nicotine products and stop smoking hotline given http_s://www.trent.o rg/Koegd-Uvpozs-Fng ness/Mental-Health- Conditions http_s://psychcentr [employer].com/depression/t bd-dpgumfoot-riueuw xe-kz-jzgffxlqhh#tr eatments http__s://www.nimh. nih.gov/health/topi cs/jrupnm-gnefnb-ad dications http__s://www.trent. org/Szbbs-Duqtmn-Pc lness/Treatments/Me bing-Cpcpfk-Nihpxql ions educated on all medications, benefits, side effects and risk, and educated on depression, anxiety, and ADHD, mood d/o and educated on compliance of medications, metabolic and movement d/o education appointment's, continue therapy discussion with patient about course of treatment and patient instructions. education on serotonin syndrome Discussed and educated pt regarding benzodiazepines are generally not intended for prolonged use and that use can cause tolerance, dependence, depression, and associated memory issues including dementias (this list is not exhaustive). Benzodiazepine use is generally not recommended concurrently with pain medications and/or other controlled substances educated on all medications, benefits, side effects and risk, and educated on depression, anxiety, and ADHD, mood d/o and educated on compliance of medications, metabolic and movement d/o education appointment is, continue therapy discussion with patient about course of treatment and patient instructions. education on serotonin syndrome SSRI/SNRI side effects discussed including but not limited to, gastric upset, nausea, vomiting, diarrhea and/or constipation, weight changes, sexual side effects including loss of libido, increased suicidal thoughts/behaviors in children and young adults, and serotonin syndrome. flu vaccine PCP office 01/28/24 COVID and RSV vaccine 02/09/24 Medication Management and Follow-Up - Plan: - Schedule follow-up appointments every 3-6 months to monitor the patient's response to the medication regimen. - Reinforce the importance of avoiding recreational drug use due to potential neurotoxicity and interactions with prescribed medications. Plan Of Treatment Medication Medication Name Sig Start Date Stop Date Notes Ramelteon 8 MG 1 tablet at bedtime as needed Orally Once a day for 30 days 05/15/2024 07/14/2024 Escitalopram Oxalate 20 MG 1 tablet Oral once a day for 90 days Mirtazapine 30 MG 1 tablet at bedtime Oral Once a day for 90 days traZODone HCl 100 MG 1 tablet Oral bedti me for 90 days GDR Treatment Notes Assessment Notes MDD (major depressive disord er), recurrent episode, mild Learning About How to Get Help During a Mental Health Crisis material was published, Preventing Depression From Coming Back: Care Instructions material was published, Learning About Depression material was published, Preventing Depression From Coming Back: Care Instructions material was published Generalized anxiety disorder Generalized Anxiety Disorder: Care Instructions material was published, Learning About Generalized Anxiety Disorder material was published Primary insomnia Insomnia: Care Instr uctions material was published, Insomnia: Care Instructions material was published, Learning About Sleeping Well material was published Tobacco use Learning About Benef its of Quitting Smoking material was published, Deciding About Using Medicines To Quit Smoking material was published, Stopping Smokeless Tobacco Use: Care Instructions material was published, Quitting Tobacco: Care Instructions material was published, Learning About Benefits of Quitting Smoking material was published, Quitting Tobacco: Care Instructions material was published, Stopping Smokeless Tobacco Use: Care Instructions material was published, Deciding About Using Medicines To Quit Smoking material was published 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 Refill: Care Instructions material was published Other Mirtazapine Oral Tab let (MIRTAZAPINE - ORAL) material was published, Escitalopram Oral Tablet (ESCITALOPRAM - ORAL) material was published, Trazodone Oral Tablet (TRAZODONE - ORAL) material was published, Ramelteon Oral Tablet (RAMELTEON - ORAL) material was published Next Appt Details Follow Up: 6 Weeks, Reason: f/u rx Ramelteon obtain labs PCP Provider Name:Malika Valdes , 07/31/2024 02:30:00 PM, [address], [facility], [place], [address], Provider Name:Malika Valdes , 12/09/2024 01:00:00 PM, [address], [facility], [place], [address], Progress Notes * DUSTIN VELASQUEZ MDOB: (69 yo F)Acc No.[id number]:05/15/2024 Patient: DUSTIN LARIOS Provider: TASHI TRIANA :1955 A ge:69 Y S ex:Female Date:05/15/2024 Address:[address] [place] [address] B, [address], [id number] Subjective: * Chief Complaints: * 1 . Follow up medications. * HPI: D epression Screening: NAZARIO-7 (2018 Edition) F eeling nervous, anxious, or on edge?Not at all, N ot being able to stop or control worrying N ot at all, W orrying too much about different things N ot at all, T rouble relaxing N ot at all, B eing so restless that it is hard to sit still N ot at all, B ecoming easily annoyed or irritable N ot at all, F eeling afraid as if something awful might happen N ot at all, T otal NAZARIO-7 Score 0 , I nterpretation of Total ( 0 to 4) No Anxiety. This is a 69 year old white female 6 month f/u reported depression and anxiety and sleep, reported last 6 weeks I feel 3-4 nights a week I am up 3-5 am and I take rx and Trazodone not working and I even try extra one and not working, and nothing with mood or depression going on, I have not had a sleep study done, no sad or down, no hopeless no helpless, I see PCP 05/21/23, heart monitor was fine Dirk want to come off blood thinner, I have SOB and I breath fine sleeping and not wake me, appetite same, 1x day, and snack at night, concentration and focus fine and sometimes forgetful, no psychosis no lety no SI/HI, I stop caffiene after 6 pm 3 soda a day, no other caffine, r x no s/e when not able to sleep I am anxious and restless. When I can not sleep nothing bother me, I am just wide awake, denies SI/HI no plans or intent no thoughts harm to self or others, no past attempts, no psychiatric hospital Smoking 1 ppd ETOH denies drugs denies labs- PCP presently taking Lexapro 20 mg daily, Remeron 30 mg bedtime, Trazodone 200 mg bedtime. C [place]-Suicide Severity Rating Scale: Suicide Risk (CSRS-screener) i n the past one month Have you wished you were or wished you could go to sleep and not wake up? N o, i n the past one month Have you actually had any thoughts of killing yourself? N o. D epression screening: PHQ-9 L ittle interest or pleasure in doing things N ot at all, F eeling down, depressed, or hopeless N ot at all, T rouble falling or staying asleep, or sleeping too much N early every day, F eeling tired or having little energy N early every day, P oor appetite or overeating M ore than half the days, F eeling bad about yourself or that you are a failure, or have let yourself or your family down N ot at all, Trouble concentrating on things, such as reading the newspaper or watching television N ot at all, M oving or speaking so slowly that other people could have noticed; or the opposite, being so fidgety or restless that you have been moving around a lot more than usual N ot at all, T houghts that you would be better off or of hurting yourself in some way N ot at all, T otal Score 8 , I nterpretation M ild Depression. I ntervention D epression Screening Findings P ositve, F ollow-Up for Depression M ental health treatment assessment, Patient follow-up to return when and if necessary, S uicide Risk Assessment Performed 0 05/15/2024 , A dditional Evaluation for Depression P sychiatric interview and evaluation, N abdelrahman of the standardized tool used for adult depression screening: [facility] (PHQ-[facility]). * ROS: r eports s hortness of breath when walking COPD, cough, n o chest pain, no shortness of breath when lying down, no palpitations, no known heart murmur, and no ankle swelling; - hx heart monitor r eports no abdominal pain, no nausea, no vomiting, no constipation, normal appetite, no diarrhea, and reported GERD; . r eports no headaches and no migraines but reports no loss of consciousness, no weakness, no numbness, no seizures, no dizziness, no tremor, no gait dysfunction, and no paralysis. r eports sleep disturbances and restless sleep, and no memory loss b ut reports mild depression, feeling safe in a relationship, no alcohol abuse, mild anxiety, no hallucinations, no suicidal thoughts, no mood swings, no agitation, r eports f atigue. reports no fever, no significant weight gain, and weight loss. r eports wears glasses. reports no incontinence, no difficulty urinating, no hematuria, and no increased frequency. r eports no muscle aches, no muscle weakness, arthralgias/joint pain, no back pain, no swelling in the extremities, no neck pain, and no difficulty walking. * Medical History: P roblems: Anorexia nervosa, Anxiety disorder, Long-term drug therapy, Memory impairment, Mild major depression, Primary insomnia, Tobacco user, ,. * Social History: T obacco Use: T obacco Control (Standard) T obacco use: C urrent some day smoker, H ow often do you smoke cigarettes? E very day. M igrated Social History: M igrated Social History: Alcohol Intake: None 01/10/2021,Tobacco Years: Current every day smoker 01/10/2021,Smoking Status: 46 01/23/2023. D rug/Alcohol: D rugs H ave you used drugs other than those for medical reasons in the past 12 months??No. D o you smoke marijuana?: Denies. Do you drink alcohol?: No. AUDIT-C (Standard) D id you have a drink containing alcohol in the past year? N o. H ousehold: H ousehold M arital status: s jeana, N umber of adults in household: 1 , L evel of education: retired, A [place] household tobacco use? Y es. M iscellaneous: O ccupation: Retired. Safety issues A re there any firearms in the house? N o. A dvance Care Planning A re you your own decision-maker Y es, D o you have Power of Poultry Cleaner for Health or Medical? N o. 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 * Medications: T aking Eliquis 5 MG Tablet as directed Orally , Taking amLODIPine Besylate 10 MG Tablet Oral , Taking Lovastatin 10 MG Tablet Oral , Taking ProAir HFA 108 (90 Base) MCG/ACT Aerosol Solution Inhalation , Taking Potassium Chloride ER 20 MEQ Tablet Extended Release 2 tablet with food Oral Once a day , Taking Calcitriol 0.5 MCG Capsule Oral , Taking Lisinopril 30 MG Tablet Oral , Taking Levothyroxine Sodium 112 MCG Tablet Oral , Taking Cyclobenzaprine HCl 10 MG Tablet Oral , Taking Levothyroxine Sodium 137 MCG Tablet Oral , Taking traZODone HCl 100 MG Tablet 2 tablet every night Oral bedtime , Taking Escitalopram Oxalate 20 MG Tablet 1 tablet Oral once a day , Taking Mirtazapine 30 MG Tablet TAKE 1 TABLET BY MOUTH EVERYDAY AT BEDTIME , Not-Taking Sennosides-Docusate Sodium 8.6-50 mg Tablet Oral , Not-Taking Alendronate Sodium 70 MG Tablet Oral , Not-Taking Doxycycline Hyclate 100 MG Tablet Oral , Not-Taking Levothyroxine Sodium 150 MCG Tablet Oral , Not-Taking Anoro Ellipta 62.5-25 MCG/INH Aerosol Powder Breath Activated Inhalation , Not-Taking HYDROcodone-Acetaminophen 7.5-325 MG Tablet 1 tablet as needed Oral every 6 hrs , Not-Taking Lisinopril-hydroCHLOROthiazide 10-12.5 MG Tablet Oral , Not-Taking OxyCONTIN 20 MG Tablet ER 12 Hour Abuse-Deterrent Oral , Not-Taking Lisinopril 10 MG Tablet Oral , Not-Taking LORazepam 1 MG Tablet Oral , Not-Taking Naloxone HCl 4 MG/0.1ML Liquid Nasal , Medication List reviewed and reconciled with the patient * Allergies: P enicillins: Allergy - Onset Date 07/24/2023. Objective: * Vitals: B P:99/69mm Hg, Wt:117.0lbs, Wt-k.07 kg, Ht: 62.00 in, Ht-cm: 157.48 cm, BMI:21.4Index, Body Surface Area: 1.52. * Examination: P sychiatry: Appearance: w ell-groomed, well-nourished, appears stated age, slender build. Abnormal body movements: n one. Affect / mood: a ppropriate, full range. Aggression: l ow. Anger control: g ood. Attention: g ood. Attitude: c ooperative. Gait s teady normal. Homicidal ideation: n one. Suicidal ideation: n one. Memory status: n o impairment noted. Degree of awareness of surroundings: w ithin normal limits.? Delusions: n o. Hallucinations: n o. Impulse control: g ood. Insight: g ood. Intellectual functioning: n o impairment noted. Comprehension - Intellectual function: a verage. Judgement: g ood. Orientation: a wake, alert and oriented x 3. Perceptual disorders: n o perceptual disorder noted. Psychomotor activity: w ithin normal range. Speech / language: a ppropriate pitch/modulation, clear and coherent, normal rate, volume, and articulation (RVR), proper grammar used. Thought content: a ppropriate. Thought process: i ntact. Assessment: * Assessment: 1. M DD (major depressive disorder), recurrent episode, mild - F33.0 (Primary) 2 . G eneralized anxiety disorder - F41.1 3 . P rimary insomnia - F51.01? 4. T obacco use - Z72.0 5 . 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 Nicotine and other chemicals in cigarettes and cigars can cause lung damage. Ask your healthcare provider for information if you currently smoke and need help to quit. E-cigarettes or smokeless tobacco still contain nicotine. Talk to your healthcare provider before you use these products. education on decrease to stopping nicotine products and stop smoking hotline given http_s://www.trent.org/Elzbr-Yhqtxp-Ggiuxqf/Gqguoz-Edyfqq-Wksskkgpme http_s://psychcentral.com/depression/zcj-tusrmjjhg-rijbmdrl-of-depression#treatm ents http__s://www.nim.nih.gov/health/topics/fsdqcd-avpwyf-qaaaerpbbwt http__s://www.trent.org/Ogjys-Tvpfop-Eochhyn/Treatments/Mzrtpa-Aujbmt-Acfqmbbnmvo educated on all medications, benefits, side effects and risk, and educated on depression, anxiety, and ADHD, mood d/o and educated on compliance of medications, metabolic and movement d/o education appointment's, continue therapy discussion with patient about course of treatment and patient instructions. education on serotonin syndrome Discussed and educated pt regarding benzodiazepines are generally not intended for prolonged use and that use can cause tolerance, dependence, depression, and associated memory issues including dementias (this list is not exhaustive). Benzodiazepine use is generally not recommended concurrently with pain medications and/or other controlled substances educated on all medications, benefits, side effects and risk, and educated on depression, anxiety, and ADHD, mood d/o and educated on compliance of medications, metabolic and movement d/o education appointment is, continue therapy discussion with patient about course of treatment and patient instructions. education on serotonin syndrome SSRI/SNRI side effects discussed including but not limited to, gastric upset, nausea, vomiting, diarrhea and/or constipation, weight changes, sexual side effects including loss of libido, increased suicidal thoughts/behaviors in children and young adults, and serotonin syndrome. flu vaccine PCP office 01/28/24 COVID and RSV vaccine 02/09/24 Medication Management and Follow-Up - Plan: - Schedule follow-up appointments every 3-6 months to monitor the patient's response to the medication regimen. - Reinforce the importance of avoiding recreational drug use due to potential neurotoxicity and interactions with prescribed medications. Plan: * Treatment: 2. G eneralized anxiety disorder Notes: Generalized Anxiety Disorder: Care Instructions material was published, Learning About Generalized Anxiety Disorder material was published 3. P rimary insomnia Refill traZODone HCl Tablet, 100 MG, 1 tablet, Oral, bedtime, 90 days, 90 Tablet, Refills 0, Notes to Pharmacist: JOHNATHAN, Notes: 100 mg total nightly; S tart Ramelteon Tablet, 8 MG, 1 tablet at bedtime as needed, Orally, Once a day, 30 days, 30 Tablet, Refills 1. Notes: Insomnia: Care Instructions material was published, Insomnia: Care Instructions material was published, Learning About Sleeping Well material was published 4. T obacco use Notes: Learning About Benefits of Quitting Smoking material was published, Deciding About Using Medicines To Quit Smoking material was published, Stopping Smokeless Tobacco Use: Care Instructions material was published, Quitting Tobacco: Care Instructions material was published, Learning About Benefits of Quitting Smoking material was published, Quitting Tobacco: Care Instructions material was published, Stopping Smokeless Tobacco Use: Care Instructions material was published, Deciding About Using Medicines To Quit Smoking material was published 5. 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 O thers Notes: Mirtazapine Oral Tablet (MIRTAZAPINE - ORAL) material was published, Escitalopram Oral Tablet (ESCITALOPRAM - ORAL) material was published, Trazodone Oral Tablet (TRAZODONE - ORAL) material was published, Ramelteon Oral Tablet (RAMELTEON - ORAL) material was published * Procedure Codes: G 9902 Pt scrn tbco and id as user, [address]2978 BEHAV ASSMT W/SCORE & DOCD/STAND INSTRUMENT, G2211 VISIT COMPLEXITY INHERENT TO ONGOING CARE RELATED TO A PATIENT'S SINGLE, SERIOUS CONDITION OR A COMPLEX CONDITION * Preventive Medicine: Counseling: C ommunication to patient: Telma clarkeeled the Patient on tobacco use; cessation provided 0 05/15/2024 Do not smoke. Nicotine and other chemicals in cigarettes and cigars can cause lung damage. Ask your healthcare provider for information if you currently smoke and need help to quit. E-cigarettes or smokeless tobacco still contain nicotine. Talk to your healthcare provider before you use these products.education on decrease to stopping nicotine products and stop smoking hotline given. Screenings: F all risk screening F all Risk Assessment: N o falls in the past year. B reast cancer screening (mammogram) H ave you had a recent mammogram? S CHEDULED. C ervical cancer screening (Pap smear) H ave you had a recent Pap smear? Y es, D ate of Pap smear: 0 01/14/2024, R esult of Pap smear: n ormal cervical cytology. O steoporosis screening (bone density measurement) H ave you had a recent bone density? s cheduled. D epression screening H ave you had a recent depression screening? Y es, D ate of depression screenin 05/15/2024. A lcohol misuse screening H ave you had a recent alcohol misuse screening? Y es, D ate of alcohol misuse screenin 05/15/2024. C olorectal cancer screening T en year follow-up for colonoscopy recommended? Y es, R alfie: Reason not specified, H ave you had a recent colorectal cancer screening? Y es, T ype of screening: C ologuard/FIT-DNA, D ate of Cologuard/FIT-DNA: 0 05/15/2022. S moking Cessation counseling done Discuss the importance of quitting smoking,. * Follow Up: 6 Weeks (Reason: f/u rx Ramelteon obtain labs PCP) * Billing Information: * Visit Code: 51770 OFFICE OUTPATIENT VISIT 25 MINUTES DETAILED HISTORY AND EXAM/MODERATE MEDICAL DECISION MAKING. * Procedure Codes: G9902 Pt scrn tbco and id as user. 66619 BEHAV ASSMT W/SCORE & DOCD/STAND INSTRUMENT. G2211 VISIT COMPLEXITY INHERENT TO ONGOING CARE RELATED TO A PATIENT'S SINGLE, SERIOUS CONDITION OR A COMPLEX CONDITION. * ER RUNNER Sign off status: Completed true * Provider: TASHI TRIANA Date: 05/15/2024 Generated for Gil castrejon/Ilene/Chacho on: 0 06/26/2024 10:55 AM NAPPER RUNNER History and Physical Notes * HPI (History of Present Illness) Category Sub-Category Detail Notes Category Not es Depression screening PHQ-9 Little inte rest or pleasure in doing things: Not at all Feeling down, depressed, or hopeless: No t at all Trouble falling or staying asleep, or sl eeping too much: Nearly every day Feeling tired or having little energy: N early every day Poor appetite or overeating: More than h kobe the days Feeling bad about yourself o r that you are a failure, or have let yourself or your family down: Not at all Trouble concentrating on thi ngs, such as reading the newspaper or watching television: Not at all Moving or speaking so slowly that other people could have noticed; or the opposite, being so fidgety or restless that you have been moving around a lot more than usual: Not at all Thoughts that you would be b agusto off or of hurting yourself in some way: Not at all Total Score: 8 Interpretation: Mild Depression Intervention Depression Screening Findings: P ositve Follow-Up for Depression: [facility] treatment assessment, Patient follow-up to return when and if necessary Suicide Risk Assessment Performed: 05/15 Additional Evaluation for De pression: Psychiatric interview and evaluation Name of the standardized too l used for adult depression screening:: Patient Health Questionnaire (PHQ-9) Depression Screening NAZARIO-7 (2018 Edition) Feeling nervous, anxious, or on edge: Not at all This is a 69 year old white female 6 month f/u reported depression and anxiety and sleep, reported last 6 weeks I feel 3-4 nights a week I am up 3-5 am and I take rx and Trazodone not working and I even try extra one and not working, and nothing with mood or depression going on, I have not had a sleep study done, no sad or down, no hopeless no helpless, I see PCP 05/21/23, heart monitor was fine Dirk want to come off blood thinner, I have SOB and I breath fine sleeping and not wake me, appetite same, 1x day, and snack at night, concentration and focus fine and sometimes forgetful, no psychosis no lety no SI/HI, I stop caffiene after 6 pm 3 soda a day, no other caffine, rx no s/e when not able to sleep I am anxious and restless. When I can not sleep nothing bother me, I am just wide awake, denies SI/HI no plans or intent no thoughts harm to self or others, no past attempts, no psychiatric hospital Smoking 1 ppd ETOH denies drugs denies labs- PCP presently taking Lexapro 20 mg daily, Remeron 30 mg bedtime, Trazodone 200 mg bedtime Not being able to stop or control worryi ng: Not at all Worrying too much about different things : Not at all Trouble relaxing: Not at all Being so restless that it is hard to sit still: Not at all Becoming easily annoyed or irritable: No t at all Feeling afraid as if something awful nicky ht happen: Not at all Total NAZARIO-7 Score: 0 Interpretation of Total: (0 to 4) No Anx iety [place]-Suicide Severity Rating Scale Suicide Risk (CSRS-screener) in the past one month Have you wished you were or wished you could go to sleep and not wake up?: No in the past one month Have y ou actually had any thoughts of killing yourself?: No Examination Category Sub-Category Detail Notes Category Not es Psychiatry Appearance: well-groomed, we ll-nourished, appears stated age, slender build Attitude: cooperative Psychomotor activity: within normal rang e Abnormal body movements: none Attention: good Degree of awareness of surroundings: wit hin normal limits Orientation: awake, alert and jose alfredo ented x 3 Affect / mood: appropriate, full ra nge Speech / language: appropriate pitch/mo dulation, clear and coherent, normal rate, volume, and articulation (RVR), proper grammar used Insight: good Judgement: good Thought process: intact Thought content: appropriate Perceptual disorders: no perceptual diso rder noted Aggression: low Anger control: good Suicidal ideation: none Homicidal ideation: none Intellectual functioning: no impairment noted Impulse control: good Memory status: no impairment noted Delusions: no Hallucinations: no Comprehension - Intellectual function: a verage Gait steady normal
--- OUTSIDE RECORDS SUMMARY | 2024-06-26 10:56 | XMS_ITS ---
Author Organization [facility] As [employer] Address [address] [facility] [address] [place] [address] Care Team Providers Care Drill Instructor Name Role Phone Malika Valdes Unavailable [phone] Allergies Allergen (clinical drug ingredient) Drug/Non Drug Allergy documented on EMR Reaction Allergy Type Onset Date Status Substance with penicillin structure and antibacterial mechanism of action (substance) Penicillins Unknown Drug Allergy 07/24/2023 Active REASON FOR VISIT f/u rx Ramelteon- doing good Medications Medication SIG (Take, Route, Frequency, Duration) Notes Start Date End Date Status Ramelteon 8 MG 1 tablet at bedtime as needed Orally Once a day for 90 days Active Levothyroxine Sodium 150 MCG Oral 07/24/2023 Not-Taking Lisinopril-hydroCHLOROthiaz juan 10-12.5 MG Oral 07/24/2023 Not-Taking HYDROcodone-Acetaminophen 7.5-325 MG 1 tablet as needed Oral every 6 hrs 07/24/2023 Not-Taking Anoro Ellipta 62.5-25 MCG/INH Inhalation 07/24/2023 Not-Taking Escitalopram Oxalate 20 MG 1 tablet Oral once a day for 90 days Active Mirtazapine 30 MG 1 tablet at bedtime Oral Once a day for 90 days Active Doxycycline Hyclate 100 MG Oral 07/24/2023 Not-Taking Alendronate Sodium 70 MG Oral 07/24/2023 Not-Taking Sennosides-Docusate Sodium 8.6-50 mg Oral 07/24/2023 Not-Taking Ramelteon 8 MG 1 tablet at bedtime as needed Orally Once a day for 90 days Active Mirtazapine 30 MG TAKE 1 TABLET BY MOUTH EVERYDAY AT BEDTIME for 90 Active traZODone HCl 100 MG 1 tablet Oral bedti me for 90 days GDR Active Levothyroxine Sodium 137 MCG Oral 07/24/2023 Active Cyclobenzaprine HCl 10 MG Oral 07/24/2023 Active Potassium Chloride ER 20 MEQ 2 tablet with food Oral Once a day 07/24/2023 Active ProAir HFA 108 (90 Base) MCG/ACT Inhalation 07/24/2023 Active Levothyroxine Sodium 112 MCG Oral 07/24/2023 Active Lisinopril 30 MG Oral 07/24/2023 Ac tive Calcitriol 0.5 MCG Oral 07/24/2023 Active amLODIPine Besylate 10 MG Oral 07/24/2023 Active Eliquis 5 MG as directed Orally Active Naloxone HCl 4 MG/0.1ML Nasal 07/24/2023 Not-Taking Lovastatin 10 MG Oral 07/24/2023 Ac tive rOPINIRole HCl 1 MG 1 tablet 1 to 3 hour s before bedtime Orally Once a day Active LORazepam 1 MG Oral 07/24/2023 Not- Taking Lisinopril 10 MG Oral 07/24/2023 No t-Taking OxyCONTIN 20 MG Oral 07/24/2023 Not -Taking Social History Tobacco Use: Social History Observation Description Date Details (start date - stop date) Current Smoker NA - NA Sex Assigned At : Social History Observation Description Sex Assigned At Female Household Question Answer Notes Marital status: single Number of adults in household: 1 Level of education: retired Tobacco Control (Standard) Question Answer Notes Tobacco use: Current smoker How often do you smoke cigarettes? Every day AUDIT-C (Standard) Question Answer Notes Did you have a drink containing alcohol in the p ast year? No Vital Signs Blood pressure systolic 139 mm Hg 06/24/19 25 Blood pressure diastolic 92 mm Hg 025 Heart Rate 85 /min 06/24/2024 Height 62.00 in 06/24/2024 Weight 115.8 lbs 06/24/2024 BMI 21.18 kg/m2 06/24/2024 Height-cm 157.48 cm 06/24/2024 Weight-kg 52.53 kg 06/24/2024 Encounters Encounter Location Date Provider Diagnosis [place] [address] [facility] [address] [place] [address] 06/24/2024 Malika Valdes MDD (major depressiv e disorder), recurrent episode, mild F33.0 ; Generalized anxiety disorder F41.1 ; Primary insomnia F51.01 ; Tobacco use Z72.0 and Other intermodal customer service (current) drug therapy Z79.899 Assessments Encounter Date Diagnosis (ICD Code) Assessment Notes Treatment Notes Treatment Clinical Notes Section Notes 06/24/2024 MDD (major depressive disorder), recurrent episode, mild [...] products and stop smoking hotline given http_s://www.trent.o rg/Plkja-Brgpny-Evd ness/Mental-Health- Conditions http_s://psychcentr al.com/depression/t yz-azmqsbtrg-lwajht zf-ol-pobyensgvx#tr eatments http__s://www.nimh. nih.gov/health/topi cs/llqvmw-hlfxpw-zc dications http__s://www.trent. org/Xswuj-Vzeppp-Wr lness/Treatments/Me bqqg-Ndantz-Obilkzn ions educated on all medications, benefits, side [...] potential neurotoxicity and interactions with prescribed medications. 06/24/2024 Generalized anxiety disorder (ICD-10 - F41.1) Generalized [...] products and stop smoking hotline given http_s://www.trent.o rg/Glpky-Efzcuc-Lzj ness/Mental-Health- Conditions http_s://psychcentr [employer].com/depression/t qh-fmzlmhgyv-lryplt cz-le-mlhkyxmmhr#tr eatments http__s://www.nimh. nih.gov/health/topi cs/ypesye-rotpgr-vm dications http__s://www.trent. org/Ildkl-Rgujuu-Ll lness/Treatments/Me uddf-Dxhwzc-Odciwiw ions educated on all medications, benefits, side [...] potential neurotoxicity and interactions with prescribed medications. 06/24/2024 Primary insomnia (ICD-10 - F51.01) Insomnia: Care [...] products and stop smoking hotline given http_s://www.trent.o rg/Sqikx-Klfpoh-Tlr ness/Mental-Health- Conditions http_s://psychEasyRun.com/depression/t oz-dlxsypcxb-hankfd vc-pr-aplmovkqdp#tr eatments http__s://www.nimh. nih.gov/health/topi cs/icgdvx-jkogfv-eg dications http__s://www.trent. org/Ozijc-Iqkzmb-Gx lness/Treatments/Me bwrr-Kjmdyt-Uyztsgy ions educated on all medications, benefits, side [...] potential neurotoxicity and interactions with prescribed medications. 06/24/2024 Tobacco use (ICD-10 - Z72.0) Learning About [...] products and stop smoking hotline given http_s://www.trent.o rg/Xmwnv-Ixsrbp-Vhg ness/Mental-Health- Conditions http_s://psychcentr al.com/depression/t cd-xacxrecrz-fmhpfs py-kv-vhqudekpsm#tr eatments http__s://www.nimh. nih.gov/health/topi cs/pfhxpv-edmkmf-wl dications http__s://www.trent. org/Ibxyv-Svktpm-Ng lness/Treatments/Me mpsc-Jkwhfl-Uvuwbqy ions educated on all medications, benefits, side [...] potential neurotoxicity and interactions with prescribed medications. 06/24/2024 Other fci (current) drug therapy (ICD-10 - Z79.899) Medication [...] products and stop smoking hotline given http_s://www.trent.o rg/Rbyvp-Zkfyix-Pzn ness/Mental-Health- Conditions http_s://psychcentr [employer].com/depression/t uz-yxlbxiiat-eldirs vi-uh-tjlfmbrofg#tr eatments http__s://www.nimh. nih.gov/health/topi cs/xlieor-euvnbu-ij dications http__s://www.trent. org/Qdaie-Zzpewo-Nz lness/Treatments/Me jddr-Rqpoio-Kptqung ions educated on all medications, benefits, side [...] as needed Orally Once a day for 90 days Escitalopram Oxalate 20 MG 1 tablet Oral [...] To Quit Smoking material was published Other fci (current) drug therapy M edication Refill: Care Instructions material was published Next Appt Details Follow Up: 6 Months, Reason: f/u rx Provider Name:Malika Valdes , 07/31/2024 02:30:00 PM, [employer], [place] [address], [place], [address], Provider Name:Malika Valdes , 12/09/2024 01:00:00 PM, [employer] [address], [facility] [address], [place], [address], Progress Notes * DUSTIN VELASQUEZ MDOB: 6 (69 yo F)Acc No.[id number]:06/24/2024 Patient: Jordi DUSTIN ROSARIO Provider: TASHI TRIANA :1955 A ge:69 Y S ex:Female Date:06/24/2024 Address:[address] [place] [address] [address] [facility] Subjective: * Chief Complaints: * 1 . f/u rx Ramelteon- doing good. * HPI: D epression Screening: NAZARIO-7 (2018 [...] T otal NAZARIO-7 Score 0 , I f you checked any problems, how difficult have they made it for you to do your work, take care of things at home, or get along with other people? N ot difficult at all, I nterpretation of Total ( 0 to 4) No Anxiety. This is a 69 year old white female f/u reported Ramelteon really helps me fall asleep and after 4 hours I wake up and go to recliner and fall back to sleep and average 6 hours sleep total and no naps and depression and anxiety is fine no issues and appetite stil not much, Trazodone I take 1 tablet and Tyelnol pm helped, and I still struggel with breath and expected and see PCP 06/25/24 and had growth removed from hip and stiches gabe be removed and saw him last month also, concentration and focus good all good witH rx no S/E n o psychosis no lety no SI/HI, No sad or down no hopeless or helpless no anxious no resltess or fidgety, denies SI/HI no plans or intent no thoughts harm to self or others, no past attempts, no psychiatric hospital Smoking 1 ppd ETOH denies drugs denies labs- PCP. C [place]ia-Suicide Severity Rating Scale: Suicide Risk [...] or staying asleep, or sleeping too much S everal days, F eeling tired or having little energy S everal days, P oor appetite or overeating S everal days, F eeling bad about yourself or that you are a failure, or have let yourself or your family down N ot at all, T rouble concentrating on things, such as reading the [...] N ot at all, T otal Score 3 , I nterpretation M inimal Depression. I ntervention D epression Screening Findings?Negative, S uicide Risk Assessment Performed . * ROS: r eports s hortness of [...] gait dysfunction, and no paralysis. r eports improved s leep disturbances and improved restless sleep, and no memory loss?but reports mild depression, feeling safe in a relationship, no alcohol abuse, mild anxiety, no hallucinations, no suicidal thoughts, no mood swings, no agitation, r eports f atigue. reports no fever, no significant weight gain, and weight loss. r eports wears glasses. reports no incontinence, no difficulty urinating, and no increased frequency. r eports no muscle aches, no muscle weakness, arthralgias/joint pain, no back pain, no swelling in the extremities, no neck pain, and no difficulty walking stiches rt hip for growth removed by PCP- see PCP 06/25/24 to remove stiches. * Medical History: Shoshana redmond: Anorexia nervosa, Anxiety disorder, Long-term drug therapy, Memory impairment, Mild major depression, Primary insomnia, Tobacco user, ,. * Social History: T obacco Use: T obacco Control (Standard) T obacco use: C urrent smoker, H ow often do you smoke [...] the past year? N o. H ousehold: Mona Chambers arital status: simran hills, N umber of adults in household: 1 , L evel of education: retired, A mt household tobacco use? Y es. M iscellaneous: O ccupation: Retired. Safety issues A re there any firearms in the house? N o. A dvance Care Planning A re you your own decision-maker Y es, D o you have Power of Scanning Tech for Health or Medical? Y es. S ocial History: Mona Chambers arital Status: Giovana Mejia umber of Adults in household: 1 , N umber of Children in Household: 1 2, L evel of Education: F in[employer]. * Medications: T aking rOPINIRole HCl 1 MG Tablet 1 tablet 1 to 3 hours before bedtime Orally Once a day , Taking traZODone HCl 100 MG Tablet 1 tablet Oral bedtime , Notes to Pharmacist: JOHNATHAN, Notes: 100 mg total nightly, Taking Mirtazapine 30 MG Tablet 1 tablet at bedtime Oral Once a day , Taking Escitalopram Oxalate 20 MG Tablet 1 tablet Oral once a day , Taking Eliquis 5 MG Tablet as directed Orally [...] Sodium 137 MCG Tablet Oral , Taking Mirtazapine 30 MG Tablet TAKE 1 TABLET BY MOUTH EVERYDAY AT BEDTIME , Taking Ramelteon 8 MG Tablet 1 tablet at bedtime as needed Orally Once a day , Not-Taking Sennosides-Docusate Sodium 8.6-50 mg Tablet Oral , Not-Taking Alendronate Sodium 70 MG Tablet Oral , Not-Taking Doxycycline Hyclate 100 MG Tablet Oral , Not-Taking Levothyroxine Sodium 150 MCG Tablet Oral , Not- Taking Anoro Ellipta 62.5-25 MCG/INH Aerosol Powder Breath Activated Inhalation , Not- Taking HYDROcodone-Acetaminophen 7.5-325 MG Tablet 1 tablet as [...] Onset Date 07/24/2023. Objective: * Vitals: B P:139/92mm Hg, HR:85/min, Wt:115.8lbs, Wt-k.53 kg, Ht: 62.00 in, Ht-cm: 157.48 cm, BMI:21.18Index, Body Surface Area: 1.51. * Examination: P sychiatry: Appearance: w ell-groomed, [...] use - Z72.0 5 . O ther fci (current) drug therapy - Z79.899 presently taking [...] nicotine products and stop smoking hotline given http_s://www.trent.org/Nmbay-Vnmzza-Zomesfe/Zzgsta-Wgkjyz-Jxiycpkcum http_s://psychcentral.com/depression/mfn-ukutiostr-sdpvoroc-of-depression#treatm ents http__s://www.nimh.nih.gov/health/topics/gehxae-zkksph-xsazlgxzivm http__s://www.trent.org/Cvrte-Hfgwuw-Aswvvrc/Treatments/Uuvwjq-Bwzzlf-Ulegppeneiz educated on all medications, benefits, side effects [...] Oral, bedtime, 90 days, 90 Tablet, Refills 1, Notes to Pharmacist: GDR; S tart Ramelteon Tablet, 8 MG, 1 tablet at bedtime as needed Orally Once a day, 90 days, 90, Refills 1. Notes: Insomnia: Care Instructions material [...] Smoking material was published 5. O ther fci (current) drug therapy Notes: Medication Refill: Care Instructions material was published * Procedure Codes: G 8950 PREHTN/HTN BP DOC INDCD F/U DOC, 06994 BEHAV ASSMT W/SCORE & DOCD/STAND INSTRUMENT, 26532 BEHAV ASSMT W/SCORE & DOCD/STAND INSTRUMENT, G8753 MOST RECENT SYSTOLIC BP >= 140MM HG, G2211 VISIT COMPLEXITY INHERENT TO ONGOING CARE RELATED TO A PATIENT'S SINGLE, SERIOUS CONDITION OR A COMPLEX CONDITION, G8755 MOST RECENT DIASTOLIC BP >= 90MM HG * Preventive Medicine: Counseling: B P Management: P RE-HYPERTENSIVE FOLLOW-UP PLAN: F ollow-up 2-3 months, L FRANNY RECOMMENDATION: L ifestyle education, R EFERRAL TO ALTERNATIVE / PRIMARY CARE PROVIDER: R eferral to general physician, P HYSICAL ACTIVITY RECOMMENDATION: e ducated on healthy b/p 120/80monitor b/p at homerefer to PCP, Urgent care/ERheart healthy diet and exciselimit salt intakelimit soda intake and caffieneincrease water. * Follow Up: 6 Months (Reason: f/u rx) * Billing Information: * Visit Code: 05919 OFFICE OUTPATIENT VISIT 25 MINUTES DETAILED HISTORY AND EXAM/MODERATE MEDICAL DECISION MAKING. * Procedure Codes: G8950 PREHTN/HTN BP DOC INDCD F/U DOC. 99501 BEHAV ASSMT W/SCORE & DOCD/STAND INSTRUMENT. 83803 BEHAV ASSMT W/SCORE & DOCD/STAND INSTRUMENT. G8753 MOST RECENT SYSTOLIC BP >= 140MM HG. G2211 VISIT COMPLEXITY INHERENT TO ONGOING CARE RELATED TO A PATIENT'S SINGLE, SERIOUS CONDITION OR A COMPLEX CONDITION. G8755 MOST RECENT DIASTOLIC BP >= 90MM HG. * PACKER Sign off status: Completed true * Provider: TASHI TRIANA Date: 06/24/2024 Generated for Gil castrejon/Ilene/Chacho on: 06/26/2024 10:55 AM MEAT PACKER History and Physical Notes * HPI (History of Present Illness) Category Sub-Category Detail Notes Category Not es Depression screening PHQ-9 Little inte rest or pleasure in doing things: Not at all Feeling down, depressed, or hopeless: No t at all Trouble falling or staying asleep, or sl eeping too much: Several days Feeling tired or having little energy: S everal days Poor appetite or overeating: Several day s Feeling bad about yourself o r that [...] some way: Not at all Total Score: 3 Interpretation: Minimal Depression Intervention Depression Screening Findings: N egative Suicide Risk Assessment Performed: ____ Depression Screening NAZARIO-7 (2018 Edition) Feeling nervous, anxious, or on edge: Not at all This is a 69 year old white female f/u reported Ramelteon really helps me fall asleep and after 4 hours I wake up and go to recliner and fall back to sleep and average 6 hours sleep total and no naps and depression and anxiety is fine no issues and appetite stil not much, Trazodone I take 1 tablet and Tyelnol pm helped, and I still struggel with breath and expected and see PCP 06/25/24 and had growth removed from hip and stiches gabe be removed and saw him last month also, concentration and focus good all good witH rx no S/E no psychosis no lety no SI/HI, No sad or down no hopeless or helpless no anxious no resltess or fidgety, denies SI/HI no plans or intent no thoughts harm to self or others, no past attempts, no psychiatric hospital Smoking 1 ppd ETOH denies drugs denies labs- PCP Not being able to stop or control [...] Not at all Total NAZARIO-7 Score: 0 If you checked any problems, how difficult have they made it for you to do your work, take care of things at home, or get along with other people?: Not difficult at all Interpretation of Total: (0 to 4) No Anx iety Hunker-Suicide Severity Rating Scale Suicide Risk (CSRS-screener) in [...]
--- OUTSIDE RECORDS SUMMARY | 2024-06-26 10:56 | XMS_ITS | Patient Health Summary ---
Author Organization [facility] Address [address] [place] [address] Care Team Providers Care Drawing Kiln Operator Name Role Phone Unavailable Primary Care Provider Unavailabl e Note from [facility],non-owned Affiliates and Associated Physician Practices is amultiple site organization consisting of ambulatory clinics and hospital sitesin [place], [place], [place] and [place]. This disclosure is being madepursuant to the Care Everywhere program and may not contain all information available regarding this patient. Last updated 18.[facility] Social History Tobacco Use Types Packs/Day Years [...] Diagnosis URINE, VOIDED, THIN PREP, CYTOLOGY (OSC: [id number]; 01/28/2021): - Adequate for evaluation - Negative for high grade urothelial carcinoma - Urothelial cells and squamous cells 02/02/2021 2:37 PM CDT [facility] Microscopic Description and Comment Microscopic examination substantiates the final diagnosis. 02/02/2021 2:37 PM CDT [facility] Clinical History HEMATURIA 02/02/2021 2:37 PM CDT [facility] Materials Received Prepared slide received from [facility] [place] [facility] [id number]. All material will be returned. 02/02/2021 2:37 PM CDT [facility] Disclaimer The performance characteristics of all immunohistochemical and indirect immunofluorescence stains (if any) cited in this report were determined by the Histopathology Laboratory of [facility]. 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 02/02/2021 2:37 PM CDT [facility] Case Report Surgical Pathology Report Case: [id number] Authorizing Provider: Sommer Jameson MD Collected: 01/28/2021 12:18 PM Ordering Location: [facility] Lab Received: 02/01/2021 12:18 PM Pathologist: Bobby Martinez MD Specimen: Slide Consultation 02/02/2021 2:37 PM CDT [facility] Embedded Images 02/02/2021 2:37 PM CDT [facility] Pathology/Cytolo gy SURGICAL PATHOLOGY CONSULTATION AND REPORT ON REFERRED SLIDES PREPARED ELSEWHERE / Unknown 01/28/2021 12:18 PM CDT 02/01/2021 12:18 PM CDT Sommer Jameson MD LAB - PATHOLOGY/CYTO LOGY ORDERABLES [facility] [address] [place] [address], [facility] [phone]
--- OUTSIDE RECORDS SUMMARY | 2024-06-26 10:56 | XMS_ITS | Encounter Summary ---
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 Await reply. CM available for any discharge assistance. MACHINE OPERATOR documented in this encounter Plan of Treatment Not on file documented as of this encounter Visit Diagnoses Not on filedocumented in this encounter Care Teams Mine Development Engineer Relationship Specialty Start Date End Date Jc Pickett MD [address] [place] [address] PCP - General Internal Medicine 03/02/21 documented as of this encounter
--- OUTSIDE RECORDS SUMMARY | 2024-06-26 10:56 | XMS_ITS | Encounter Summary ---
Author Organization [facility] Address [address] [place] [address] Care Team Providers Care Pharmacy Informatics Manager Name Role Phone Unavailable Primary Care Provider Unavailabl e Encounter Details Date Type Department Care Team (Late st Contact Info) Description 02/01/2021 Lab Requisition [facility] Care Pathology Lab [address] [place] [address] Sommer Jameson MD [address] [place], [place] [id number] Illness, unspecified Social History Tobacco Use Types [...] Diagnosis URINE, VOIDED, THIN PREP, CYTOLOGY (OSC: [id number]; 01/28/2021): - Adequate for evaluation - Negative for high grade urothelial carcinoma - Urothelial cells and squamous cells 02/02/2021 2:37 PM CDT [facility] Microscopic Description and Comment Microscopic examination substantiates the final diagnosis. 02/02/2021 2:37 PM CDT [facility] Clinical History HEMATURIA 02/02/2021 2:37 PM CDT [facility] Materials Received Prepared slide received from [facility] [id number]. All material will be returned. 02/02/2021 2:37 PM CDT [facility] PATH[facility] Disclaimer The performance characteristics of all immunohistochemical and indirect immunofluorescence stains (if any) cited in this report were determined by the Histopathology Laboratory of [facility]. Some of these tests were [...] attending (teaching) pathologist. 02/02/2021 2:37 PM CDT [facility] Case Report Surgical Pathology Report Case: [id number] Authorizing Provider: Sommer Jameson MD Collected: 01/28/2021 12:18 PM Ordering Location: [facility] Path[facility] Lab Received: 02/01/2021 12:18 PM Pathologist: Bobby Martinez MD Specimen: Slide Consultation 02/02/2021 2:37 PM CDT [facility] Embedded Images 02/02/2021 2:37 PM CDT [facility] PATH[facility] Pathology/Cytolo gy SURGICAL PATHOLOGY CONSULTATION AND REPORT ON REFERRED SLIDES PREPARED ELSEWHERE / Unknown 01/28/2021 12:18 PM CDT 02/01/2021 12:18 PM CDT Sommer Jameson MD LAB - PATHOLOGY/CYTO LOGY ORDERABLES Performing Organization Address City/State/[facility] Co de Phone Number [facility] [address] [place], [place] [address] [phone] documented in this encounter Visit Diagnoses Diagnosis Illness, unspecified documented in this encounter
--- OUTSIDE RECORDS SUMMARY | 2024-06-26 10:56 | XMS_ITS | Patient Health Record ---
Author Organization [facility] [place] Address [address] [facility] [address] [place] [address] Care Team Providers Care Automatic Clipper And Stripper Name Role Phone Malika Valdes Unavailable [phone] Migration, Provider Unavailable Unavailable Allergies Allergen (clinical drug ingredient) Drug/Non Drug Allergy documented on EMR Reaction Allergy Type Onset Date Status Substance with penicillin structure and antibacterial mechanism of action (substance) Penicillins Unknown Drug Allergy 07/24/2023 Active Reason For Referral No Information Medications Medication SIG (Take, Route, Frequency, Duration) Notes Start Date End Date Status Ramelteon 8 MG 1 tablet at bedtime as needed Orally Once a day for 90 days Active Escitalopram Oxalate 20 MG 1 tablet Oral once a day for 90 days Active Ramelteon 8 MG 1 tablet at bedtime [...] Levothyroxine Sodium 137 MCG Oral 07/24/2023 Active Levothyroxine Sodium 150 MCG Oral 07/24/2023 Not-Taking Doxycycline Hyclate 100 MG Oral 07/24/2023 Not-Taking Alendronate Sodium 70 MG Oral 07/24/2023 Not-Taking Sennosides-Docusate Sodium 8.6-50 mg Oral 07/24/2023 Not-Taking OxyCONTIN 20 MG Oral 07/24/2023 Not -Taking rOPINIRole HCl 1 MG 1 tablet 1 to 3 hour s before bedtime Orally Once a day Active Lisinopril-hydroCHLOROthiaz juan 10-12.5 MG Oral 07/24/2023 Not-Taking HYDROcodone-Acetaminophen 7.5-325 MG 1 tablet as needed Oral every 6 hrs 07/24/2023 Not-Taking Anoro Ellipta 62.5-25 MCG/INH Inhalation 07/24/2023 Not-Taking amLODIPine Besylate 10 MG Oral 07/24/2023 Active Eliquis 5 MG as directed Orally Active LORazepam 1 MG Oral 07/24/2023 Not- Taking Lisinopril 10 MG Oral 07/24/2023 No t-Taking Naloxone HCl 4 MG/0.1ML Nasal 07/24/2023 Not-Taking Potassium Chloride ER 20 MEQ 2 tablet with food Oral Once a day 07/24/2023 Active ProAir HFA 108 (90 Base) MCG/ACT Inhalation 07/24/2023 Active Lovastatin 10 MG Oral 07/24/2023 Ac tive Cyclobenzaprine HCl 10 MG Oral 07/24/2023 Active Levothyroxine Sodium 112 MCG Oral 07/24/2023 Active Lisinopril 30 MG Oral 07/24/2023 Ac tive Calcitriol 0.5 MCG Oral 07/24/2023 Active Immunizations Vaccine Route Administration Date Status Comme nts Influenza virus vaccine, quadrivalent (IIV4), split virus, 0.25 mL dosage Unknown 01/14/2015 Administered Influenza virus vaccine, quadrivalent (IIV4), split virus, 0.25 mL dosage Unknown 04/26/2018 Administered Influenza virus vaccine, quadrivalent (IIV4), split virus, 0.25 mL dosage Unknown 04/11/2019 Administered Influenza virus vaccine, quadrivalent (IIV4), split virus, 0.25 mL dosage Unknown 01/13/2020 Administered Influenza, injectable, MDCK, preservative free Unknown 06/28/2017 Administered Influenza, seasonal, injecta ble, preservative free, 3 yrs and above Unknown 04/22/2012 Administered Influenza, unspecified formulation Unknown 02/13/2022 A dministered Influenza, unspecified formulation Unknown 03/14/2023 A dministered Moderna Covid-19 Vaccine 1st dose Unknown 07/21/2020 Ad ministered Moderna Covid-19 Vaccine 1st dose Unknown 08/20/2020 Ad ministered Novel [id number]-[id number], preservative free Unknown 04/26/2016 Administered Novel [id number]-D2C2-58, preservative free Unknown 01/14/2020 Administered [employer] Covid-19 Vac cine 2nd dose Unknown 04/13/2021 Administered Pneumococcal conjugate PCV 13 Unknown 11/26/2014 Admini stered Pneumococcal conjugate PCV 7 Unknown 04/15/2018 Adminis tered Pneumococcal polysaccharide PPV23 Unknown 12/19/2013 Ad ministered Pneumococcal polysaccharide PPV23 Unknown 05/30/2018 Ad ministered Zoster Unknown 05/09/2016 Administered Zoster Unknown 05/30/2018 Administered Social History Tobacco Use: Social History Observation [...] alcohol in the p ast year? No Problems Problem Type SNOMED Code ICD Code Onset Dates Problem Status W/U Status Risk Notes Problem Generalized anxiety disorder (93677649) Generalized anxiety disorder (F41.1) 4 Active confirmed Problem Anorexia nervosa, restricting type (25312605) Anorexia nervosa, restricting type (F50.01) 4 Active confirmed Problem Primary insomnia (1010903) Primary insomnia (F51.01) 4 Active confirmed Problem Tobacco use (269011916) Tobacco use (Z72.0) 4 Active confirmed Problem Long-term current use of drug therapy (346219513) Other intermediate (current) drug therapy (Z79.899) 4 Active confirmed Problem 703651842 MDD (major depressive disorder), recurrent episode, mild (F33.0) Active confirmed Vital Signs Heart Rate 85 /min 06/24/2024 Height-cm 157.48 cm 06/24/2024 Blood pressure diastolic 92 mm Hg 06/24/2024 Weight-kg 52.53 kg 06/24/2024 Height 62.00 in 06/24/2024 Blood pressure systolic 139 mm Hg 06/24/2024 Weight 115.8 lbs 06/24/2024 BMI 21.18 kg/m2 06/24/2024 Encounters Encounter Location Date Provider Diagnosis 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 control representative (current) drug therapy Z79.899 ; Primary insomnia F51.01 ; Anorexia nervosa, restricting type F50.01 ; Generalized anxiety disorder F41.1 ; Other amnesia R41.3 and Major depressive disorder, single episode, mild F32.0 [place] [address] [facility] [address] [facility] [address] [place] [address] 01/31/2024 Malika Therphillip MDD (major depressive disorder), recurrent episode, mild F33.0 ; Generalized anxiety disorder F41.1 ; Primary insomnia F51.01 ; Anorexia nervosa, restricting type F50.01 ; Tobacco use Z72.0 and Other termite control representative (current) drug therapy Z79.[address] [facility] [address] [place] [address] 05/15/2024 Malika Therphillip MDD (major depressive disorder), recurrent episode, mild F33.0 ; Generalized anxiety disorder F41.1 ; Primary insomnia F51.01 ; Tobacco use Z72.0 and Other termite control representative (current) drug therapy Z79.[address] [address] 06/24/2024 Malika Therphillip MDD (major depressive disorder), recurrent episode, mild F33.0 ; Generalized anxiety disorder F41.1 ; Primary insomnia F51.01 ; Tobacco use Z72.0 and Other intermediate (current) drug therapy Z79.[address] [address] 09/29/2023 Provider Migration [address] [address] 09/30/2023 Provider Migration [address] [address] 04/29/2024 Malika Valdes Assessments Encounter Date Diagnosis (ICD Code) Assessment Notes Treatment Notes Treatment Clinical Notes Section Notes 07/24/2023 Major depressive disorder, single episode, mild (ICD-10 - F32.0) 07/24/2023 Generalized anxiety disorder (ICD-10 - F41.1) 07/24/2023 Anorexia nervosa, restricting type (ICD-10 - F50.01) 07/24/2023 Primary insomnia (ICD-10 - F51.01) 07/24/2023 Other amnesia (ICD-10 - R41.3) 07/24/2023 Tobacco use (ICD-10 - Z72.0) 07/24/2023 Other termite control representative (current) drug therapy (ICD-10 - Z79.899) 01/31/2024 Generalized anxiety disorder (ICD-10 - F41.1) Generalized Anxiety Disorder: Care Instructions material was published presently taking Lexapro 20 mg daily, Remeron 30 mg bedtime, Trazodone 200 mg bedtime Depression- Lexapro 20 mg daily, Remeron 30 mg bedtime Anxiety- Lexapro 20 mg daily, Remeron 30 mg bedtime sleep- Trazodone 200 mg bedtime Tobacco use- smoking cessation education anorxia - education http_s://www.trent.o rg/Aiqal-Dzgimj-Znj ness/Mental-Health- Conditions http_s://psychcentr [employer].com/depression/t sg-ybkketeao-ypchky jk-im-bcruejecub#tr eatments http__s://www.nimh. nih.gov/health/topi cs/tcqttw-tzomel-em dications http__s://www.trent. org/Sprid-Sfpvia-Rb lness/Treatments/Me noju-Vsywys-Tmfywyr ions educated on all medications, benefits, side [...] serotonin syndrome. flu vaccine PCP office 01/28/24 plans on COVID and RSV vaccine in 2 weeks 02/09/24 Medication Management and Follow-Up - Plan: - Schedule follow-up appointments every 3-6 months to monitor the patient's response to the medication regimen. - Reinforce the importance of avoiding recreational drug use due to potential neurotoxicity and interactions with prescribed medications. 01/31/2024 MDD (major depressive disorder), recurrent episode, mild (ICD-10 - F33.0) Learning About How to Get Help During a Mental Health Crisis material was published, Preventing Depression From Coming Back: Care Instructions material was published, Learning About Depression material was published presently taking Lexapro 20 mg daily, Remeron 30 mg bedtime, Trazodone 200 mg bedtime Depression- Lexapro 20 mg daily, Remeron 30 mg bedtime Anxiety- Lexapro 20 mg daily, Remeron 30 mg bedtime sleep- Trazodone 200 mg bedtime Tobacco use- smoking cessation education anorxia - education http_s://www.trent.o rg/Eexij-Puxdfe-Vhd ness/Mental-Health- Conditions http_s://psychcentr [employer].com/depression/t mi-hlazsxvpy-ilotsf rw-qv-ppzplyghsd#tr eatments http__s://www.nimh. nih.gov/health/topi cs/wblxft-oqabak-oz dications http__s://www.trent. org/Oazva-Pcwnpr-Vm lness/Treatments/Me yygo-Auvhuw-Txbivuu ions educated on all medications, benefits, side [...] serotonin syndrome. flu vaccine PCP office 01/28/24 plans on COVID and RSV vaccine in 2 weeks 02/09/24 Medication Management and Follow-Up - Plan: [...] products and stop smoking hotline given http_s://www.trent.o rg/Urovq-Zsayor-Kli ness/Mental-Health- Conditions http_s://psychcentr al.com/depression/t oa-iabjuzwzj-imahnz wg-pp-nfsuzlyzwu#tr eatments http__s://www.[facility]. nih.gov/health/topi cs/ynwckw-xkqgbk-zw dications http__s://www.trent. org/Vxzyw-Ktcoto-Sy lness/Treatments/Me crmy-Jfxbus-Lgxsyij ions educated on all medications, benefits, side [...] neurotoxicity and interactions with prescribed medications. 05/15/2024 MDD (major depressive disorder), recurrent episode, [...] products and stop smoking hotline given http_s://www.trent.o rg/Trqmo-Xlkymv-Ykm ness/Mental-Health- Conditions http_s://psychcentr [employer].com/depression/t xi-ueucddhqp-mkazzs uy-aw-jwyuqvgnxk#tr eatments http__s://www.nimh. nih.gov/health/topi cs/overuy-fmbqde-yu dications http__s://www.trent. org/Lveqc-Recukz-Nl lness/Treatments/Me fugj-Qfsekb-Nqgtfxq ions educated on all medications, benefits, side [...] neurotoxicity and interactions with prescribed medications. 06/24/2024 MDD (major depressive disorder), recurrent episode, [...] products and stop smoking hotline given http_s://www.trent.o rg/Fbkkw-Szzfiy-Mnz ness/Mental-Health- Conditions http_s://psychcentr al.com/depression/t jm-ssqihleoq-mrymcc rb-ff-agwjjrypiu#tr eatments http__s://www.nimh. nih.gov/health/topi cs/lujidr-srwnlj-er dications http__s://www.trent. org/Rshef-Ffnuve-Bf lness/Treatments/Me xblh-Wrktwe-Thogcsr ions educated on all medications, benefits, side [...] potential neurotoxicity and interactions with prescribed medications. 01/31/2024 Primary insomnia (ICD-10 - F51.01) Insomnia: Care Instructions material was published presently taking Lexapro 20 mg daily, Remeron 30 mg bedtime, Trazodone 200 mg bedtime Depression- Lexapro 20 mg daily, Remeron 30 mg bedtime Anxiety- Lexapro 20 mg daily, Remeron 30 mg bedtime sleep- Trazodone 200 mg bedtime Tobacco use- smoking cessation education anorxia - education http_s://www.trent.o rg/Dxtca-Ltttms-Xkq ness/Mental-Health- Conditions http_s://psychcentr al.com/depression/t wo-isbmcykqz-hjdvex qm-ro-sxucyoqiru#tr eatments http__s://www.nimh. nih.gov/health/topi cs/sxixju-syodml-jj dications http__s://www.trent. org/Xjjsl-Nhzkzq-Nr lness/Treatments/Me odzo-Dzatfe-Lkdldgw ions educated on all medications, benefits, side [...] serotonin syndrome. flu vaccine PCP office 01/28/24 plans on COVID and RSV vaccine in 2 weeks 02/09/24 Medication Management and Follow-Up - Plan: [...] products and stop smoking hotline given http_s://www.trent.o rg/Vekmo-Dribsk-Idh ness/Mental-Health- Conditions http_s://psychcentr [employer].com/depression/t qh-qiqwhaokc-jbbeyi qw-zj-lzmgiizwyg#tr eatments http__s://www.nimh. nih.gov/health/topi cs/lysygh-ftmbih-ho dications http__s://www.trent. org/Vpafi-Rexuww-Ft lness/Treatments/Me wqwq-Vublya-Xlnyvwn ions educated on all medications, benefits, side [...] products and stop smoking hotline given http_s://www.trent.o rg/Auuwc-Rrrvgl-Sgw ness/Mental-Health- Conditions http_s://psychCinnamonr [employer] Optical[employer]scom/depression/t ve-hdqpoppks-wcipkg if-wg-mdeuijvwzf#tr eatments http__s://www.nimh. nih.gov/health/topi cs/shufhv-hulmgv-yz dications http__s://www.trent. org/Pnxlv-Deelmo-Yz lness/Treatments/Me fbvn-Smqsri-Lxoetdm ions educated on all medications, benefits, side [...] products and stop smoking hotline given http_s://www.trent.o rg/Uuwmv-Mpchhq-Vpk ness/Mental-Health- Conditions http_s://psychcentr al.com/depression/t vl-cvrgdjmoo-qdtddr yn-ze-acurvaaxav#tr eatments http__s://www.nimh. nih.gov/health/topi cs/anphms-fnhofr-jq dications http__s://www.trent. org/Stdus-Vdnhqg-Nz lness/Treatments/Me bmue-Qdvxxz-Erhkfjs ions educated on all medications, benefits, side [...] products and stop smoking hotline given http_s://www.trent.o rg/Prven-Llxzqt-Bun ness/Mental-Health- Conditions http_s://psychcentr [employer].com/depression/t bl-vqdbmmajd-uivvwl ry-hb-lsgltvsnkk#tr eatments http__s://www.nimh. nih.gov/health/topi cs/rdjypj-skmlnq-zy dications http__s://www.trent. org/Hhxdj-Toufxi-Sq lness/Treatments/Me empa-Ejijqw-Omtxazg ions educated on all medications, benefits, side [...] potential neurotoxicity and interactions with prescribed medications. 01/31/2024 Anorexia nervosa, restricting type (ICD-10 - F50.01) presently taking Lexapro 20 mg daily, Remeron 30 mg bedtime, Trazodone 200 mg bedtime Depression- Lexapro 20 mg daily, Remeron 30 mg bedtime Anxiety- Lexapro 20 mg daily, Remeron 30 mg bedtime sleep- Trazodone 200 mg bedtime Tobacco use- smoking cessation education anorxia - education http_s://www.trent.o rg/Fkcft-Euznvn-Eog ness/Mental-Health- Conditions http_s://psychcentr [employer].com/depression/t uj-cilzomndw-gwmqpn sr-nv-xpizvkgqln#tr eatments http__s://www.nimh. nih.gov/health/topi cs/qtscgn-ecaggk-pi dications http__s://www.trent. org/Feuko-Xzhrcm-Hs lness/Treatments/Me ytkf-Txqalp-Jiwjpcg ions educated on all medications, benefits, side [...] serotonin syndrome. flu vaccine PCP office 01/28/24 plans on COVID and RSV vaccine in 2 weeks 02/09/24 Medication Management and Follow-Up - Plan: [...] products and stop smoking hotline given http_s://www.trent.o rg/Kfpqr-Rlptet-Bvb ness/Mental-Health- Conditions http_s://psychcentr [employer].com/depression/t mb-xwdibryqk-milbkp fz-nn-vluyfyqfqa#tr eatments http__s://www.nimh. nih.gov/health/topi cs/oedsnm-frdyqh-kr dications http__s://www.trent. org/Xraiq-Jdabhv-Ql lness/Treatments/Me eeao-Bfsnkr-Cxwfdnz ions educated on all medications, benefits, side [...] with prescribed medications. 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 nih.gov/health/topi cs/alohva-crnsdl-sy dications http__s://www.trent. org/Npqzd-Mljoxr-Tr lness/Treatments/Me yqbm-Sirhdx-Coapgqo ions educated on all medications, benefits, side [...] potential neurotoxicity and interactions with prescribed medications. 01/31/2024 Tobacco use (ICD-10 - Z72.0) Learning About Benefits of Quitting Smoking material was published, Deciding About Using Medicines To Quit Smoking material was published, Stopping Smokeless Tobacco Use: Care Instructions material was published, Quitting Tobacco: Care Instructions material was published presently taking Lexapro 20 mg daily, Remeron 30 mg bedtime, Trazodone 200 mg bedtime Depression- Lexapro 20 mg daily, Remeron 30 mg bedtime Anxiety- Lexapro 20 mg daily, Remeron 30 mg bedtime sleep- Trazodone 200 mg bedtime Tobacco use- smoking cessation education anorxia - education http_s://www.trent.o rg/Kchhj-Vajdns-Pgt ness/Mental-Health- Conditions http_s://psychcentr [employer].com/depression/t df-vhpijqina-xquaul qf-ir-iikkiyjmtc#tr eatments http__s://www.nimh. nih.gov/health/topi cs/kgldkz-mszeyw-ty dications http__s://www.trent. org/Zaeon-Vvofvg-Oc lness/Treatments/Me tcye-Mzewgk-Rcrojcd ions educated on all medications, benefits, side [...] serotonin syndrome. flu vaccine PCP office 01/28/24 plans on COVID and RSV vaccine in 2 weeks 02/09/24 Medication Management and Follow-Up - Plan: - Schedule follow-up appointments every 3-6 months to monitor the patient's response to the medication regimen. - Reinforce the importance of avoiding recreational drug use due to potential neurotoxicity and interactions with prescribed medications. 01/31/2024 Other intermediate (current) drug therapy (ICD-10 - Z79.899) presently taking Lexapro 20 mg daily, Remeron 30 mg bedtime, Trazodone 200 mg bedtime Depression- Lexapro 20 mg daily, Remeron 30 mg bedtime Anxiety- Lexapro 20 mg daily, Remeron 30 mg bedtime sleep- Trazodone 200 mg bedtime Tobacco use- smoking cessation education anorxia - education http_s://www.trent.o rg/Xqhsy-Cioztg-Lin ness/Mental-Health- Conditions http_s://psychcentr [employer].com/depression/t vo-coupaqsbp-ayxizv yd-rg-qjbqcyrfzd#tr eatments http__s://www.nimh. nih.gov/health/topi cs/tnlswi-ideiej-ls dications http__s://www.trent. org/Zvyyk-Uivsnv-Hf lness/Treatments/Me qoxr-Pqtrcm-Xtquoto ions educated on all medications, benefits, side [...] serotonin syndrome. flu vaccine PCP office 01/28/24 plans on COVID and RSV vaccine in 2 weeks 02/09/24 Medication Management and Follow-Up - Plan: - Schedule follow-up appointments every 3-6 months to monitor the patient's response to the medication regimen. - Reinforce the importance of avoiding recreational drug use due to potential neurotoxicity and interactions with prescribed medications. 06/24/2024 Other intermediate (current) drug therapy (ICD-10 - Z79.899) Medication [...] products and stop smoking hotline given http_s://www.trent.o rg/Ksazu-Wfvktc-Yiu ness/Mental-Health- Conditions http_s://psychcentr [employer].com/depression/t oa-uqjrqtcxu-ctscqs eq-ps-lxlqoxawnf#tr eatments http__s://www.nimh. nih.gov/health/topi cs/ueqfsm-akbxpz-pz dications http__s://www.trent. org/Rhemr-Qcdiel-Dr lness/Treatments/Me dkqn-Vqlgrp-Kkmxrwo ions educated on all medications, benefits, side [...] potential neurotoxicity and interactions with prescribed medications. 01/31/2024 Other referral to the local chapter or national office of the Alzheimer's Association ( ; http://www.alz. org), the Alzheimer's Disease Education and Referral Center (ADEAR) ( ; http://www.sagar. nih.gov/Alzheim ers/), , Mirtazapine Oral Tablet (MIRTAZAPINE - ORAL) material was published, Escitalopram Oral Tablet (ESCITALOPRAM - ORAL) material was published, Trazodone Oral Tablet (TRAZODONE - ORAL) material was published presently taking Lexapro 20 mg daily, Remeron 30 mg bedtime, Trazodone 200 mg bedtime Depression- Lexapro 20 mg daily, Remeron 30 mg bedtime Anxiety- Lexapro 20 mg daily, Remeron 30 mg bedtime sleep- Trazodone 200 mg bedtime Tobacco use- smoking cessation education anorxia - education http_s://www.trent.o rg/Ezzoq-Pucjdi-Jka ness/Mental-Health- Conditions http_s://psychcentr [employer].com/depression/t ff-xavwvulry-nddeoq fh-eb-jpxyqnxdar#tr eatments http__s://www.nimh. nih.gov/health/topi cs/vdihaj-duofvv-oj dications http__s://www.trent. org/Hjucg-Dnwyxn-Ez lness/Treatments/Me gvhf-Ylknsr-Qevqvhm ions educated on all medications, benefits, side [...] serotonin syndrome. flu vaccine PCP office 01/28/24 plans on COVID and RSV vaccine in 2 weeks 02/09/24 Medication Management and Follow-Up - Plan: [...] products and stop smoking hotline given http_s://www.trent.o rg/Vjtmm-Khhdii-Rsa ness/Mental-Health- Conditions http_s://psychcentr [employer].com/depression/t oi-rqkyqztws-pwfejq no-an-adiseayjgu#tr eatments http__s://www.nimh. nih.gov/health/topi cs/rbyeab-ujwitj-gy dications http__s://www.trent. org/Hixrn-Jolgff-Rr lness/Treatments/Me ekvs-Wltibs-Xlcdldu ions educated on all medications, benefits, side [...] interactions with prescribed medications. Plan Of Treatment Pending Test Test Name Order Date UDT 01/31/2024 Next Appt Details Provider Name:Malika Valdes , 07/31/2024 02:30:00 PM, [address], [address], [place], [address], Provider Name:Malika Valdes , 12/09/2024 01:00:00 PM, [address], [facility] [address], [place], [address], Insurance Providers Payer Name Payer Address Payer Phone Subscriber Number Group Number Insured Name Patient Relationship to Insured Coverage Start Date Coverage End Date Medicare-[place] Medicare [address] [place] [address] [id number] DUSTIN VELASQUEZ Self - patient is the insured [employer] Medicare Supplement [address] [place] [address] [id number] DUSTIN VELASQUEZ Self - patient is the insured Medical (General) History Medical History History ICD Code Problems: Anorexia nervosa Anxiety disorder Long-term drug therapy Memory impairment Mild major depression Primary insomnia Tobacco user , Surgical History Surgery Date(Month/Year) Procedure on back (364506879) Hysterectomy/revise vagina (22619) 05/14 Hysterectomy (96237) 05/14/1984 Appendectomy (29415) 12/13/1979
== END 2024-06-26 10:38 | disposition home or self-care (01) ==
LOC: CHSIMG 10:39
PROVIDERS: PCP Internal Medicine; Visit Provider Internal Medicine
DX: R32 Unspecified urinary incontinence (principal)
CPT/HCPCS: 76857

== ENCOUNTER 2024-07-31 09:47 | Outpatient (CLI) | payer MEDICARE, SELFPAY ==
--- NOTE | ~2024-07-31 | XR_ITS ---
AP view of the pelvis and AP and lateral views of the bilateral hips Clinical history: Pain Findings: No acute fracture or dislocation is seen. Osseous alignment is anatomic. Bilateral hip and SI joint spaces are preserved. Soft tissues are unremarkable. Impression: No significant abnormality is seen. Reviewed, dictated and finalized at location . Impression: No significant abnormality is seen.
--- NOTE | ~2024-07-31 | MR_ITS ---
MRI of the bilateral hips Clinical history: Bilateral hip pain Technique: Coronal T1-weighted, T2-weighted, and proton-density fat-sat images, and axial T1-weighted and proton-density fat-sat images were acquired through the pelvis. Coronal T2-weighted images and c oronal, axial, and sagittal proton-density fat-sat images were acquired through the bilateral hips. Findings: There is no fracture or avascular necrosis of either hip. Bone marrow signals of the proxim al femora and pelvic bones are unremarkable. There is mild chondral malacia the superior aspect of kevin th hip joints. No significant bony productive change seen. No evidence for inflammatory arthropathy. No joint effusion. No acetabular labral tear evident on either side. Visualized musculature about the pelvis and bilateral hips is unremarkable. No muscle atrophy or vicente a seen. Additionally tendons are intact. No soft tissue mass or fluid collection evident. IMPRESSION: No significant abnormality seen. Reviewed, dictated and finalized at [facility]. IMPRESSION: No significant abnormality seen.
--- OUTSIDE RECORDS SUMMARY | 2024-07-31 10:20 | XMS_ITS | Clinical Summary ---
Author Organization [facility] Address [address] [place] [address] Care Team Providers Care [employer] Literature Professor Name Role Phone Unavailable Primary Care [...]
--- OUTSIDE RECORDS SUMMARY | 2024-07-31 10:20 | XMS_ITS ---
Author Organization [facility] [employer] Address [facility] [address] [address] Care Team Providers Care Aluminum Container Tester Name Role Phone Malika Valdes Unavailable [phone] REASON FOR VISIT f/u rx Social History Sex Assigned At : Social History Observation Description Sex Assigned At Female Encounters Encounter Location Date Provider Diagnosis [facility] [employer] [place] [id number] [facility] [address] [address] 07/31/2024 Malika Valdes Plan Of Treatment Next Appt Details Provider Name:Malika Valdes , 07/31/2024 02:30:00 PM, [facility], [address], [address], Provider Name:Malika Valdes , 12/09/2024 01:00:00 PM, [address] [place] [address], [address], Progress Notes * DUSTIN VELASQUEZ MDOB: 6 (69 yo F)Acc No.[id number]:07/31/2024 Patient: Jordi DUSTIN ROSAROI Provider: TASHI TRIANA :1955 A ge:69 Y S ex:Female Date:07/31/2024 Address:[facility] [place] [address] [facility] Subjective: * Chief Complaints: * 1 . F/u rx. * Medical History: Objective: * Vitals: Assessment: Plan: * Treatment: * Billing Information: * Visit Code: * Procedure Codes: * Electronic signature of TASHI Catherine on 07/31/2024 at 10:20 AM CDT Sign off status: Pending * Provider: TASHI TRIANA Date: 07/31/2024 Generated for Gil castrejon/Ilene/Chacho on: 07/31/2024 10:20 AM CDT
--- OUTSIDE RECORDS SUMMARY | 2024-07-31 10:20 | XMS_ITS ---
Author Organization [facility] [employer] Address [address] [facility] [address] [place] [address] Care Team Providers Care Wares Sorter Name Role Phone Malika Valdes Unavailable [phone] Allergies Allergen (clinical drug ingredient) Drug/Non Drug [...] 05/15/2024 Encounters Encounter Location Date Provider [facility] [address] [address] 05/15/2024 Malika Valdes MDD (major depressiv e disorder), recurrent episode, mild F33.0 ; Generalized anxiety disorder F41.1 ; Primary insomnia F51.01 ; Tobacco use Z72.0 and 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 nih.gov/health/topi cs/hlprqd-hkzlqe-ns dications http__s://www.trent. org/Juljr-Cezmjm-Jw lness/Treatments/Me yajc-Xhdncj-Nyeprgb ions educated on all medications, benefits, side [...] products and stop smoking hotline given http_s://www.trent.o rg/Ckytu-Idatef-Kke ness/Mental-Health- Conditions http_s://psychcentr al.com/depression/t zo-pvmrkovvu-ajlvqq rb-zr-sdfrooynbx#tr eatments http__s://www.nimh. nih.gov/health/topi cs/eyacpn-zebogx-od dications http__s://www.trent. org/Culyf-Radzle-Rc lness/Treatments/Me kaaq-Ojrzve-Bvmejac ions educated on all medications, benefits, side [...] products and stop smoking hotline given http_s://www.trent.o rg/Utaxt-Yzzizc-Agu ness/Mental-Health- Conditions http_s://psychcentr PlaceFirst.com/depression/t fh-qsoyvmack-yzemsm hl-ug-coslmdualg#tr eatments http__s://www.nimh. nih.gov/health/topi cs/svfenr-shvsex-py dications http__s://www.trent. org/Xvwin-Uvgami-Jb lness/Treatments/Me bdot-Cgtwae-Wadesdu ions educated on all medications, benefits, side [...] products and stop smoking hotline given http_s://www.trent.o rg/Waavx-Yjcohb-Klo ness/Mental-Health- Conditions http_s://psychcentr al.com/depression/t dv-uvvzinnvx-hiepzt rd-ji-jwvczvgsgl#tr eatments http__s://www.nimh. nih.gov/health/topi cs/cvmpzu-dtwlvs-gl dications http__s://www.trent. org/Dnxdp-Fnsift-Eu lness/Treatments/Me cgjr-Hcuzmv-Rshqmqv ions educated on all medications, benefits, side [...] and interactions with prescribed medications. 05/15/2024 Other vermin exterminator (current) drug therapy (ICD-10 - Z79.899) Medication [...] products and stop smoking hotline given http_s://www.trent.o rg/Hvqot-Bxcrdd-Xkp ness/Mental-Health- Conditions http_s://psychcentr al.com/depression/t xg-ojdqetutz-dneorp gp-gv-oeqcczvjhe#tr eatments http__s://www.nimh. nih.gov/health/topi cs/qvclcu-xarmfz-lp dications http__s://www.trent. org/Rxavw-Glaidl-Ve lness/Treatments/Me yfgu-Jrunjs-Dnnnuiw ions educated on all medications, benefits, side [...] products and stop smoking hotline given http_s://www.trent.o rg/Pkhht-Kxwuvr-Itu ness/Mental-Health- Conditions http_s://psychcentr PlaceFirst.com/depression/t ps-spdulfwtd-yjgeko od-vr-bgrvkdunqv#tr eatments http__s://www.nimh. nih.gov/health/topi cs/lkkepc-vjjrww-sw dications http__s://www.trent. org/Kwkiw-Nmvhrr-Wk lness/Treatments/Me ysns-Vzhshf-Wbfclhi ions educated on all medications, benefits, side [...] To Quit Smoking material was published Other vermin exterminator (current) drug therapy M edication Refill: Care [...] 07/31/2024 02:30:00 PM, [address], [facility] [address], [place], [address], Provider Name:Malika Valdes , 12/09/2024 01:00:00 PM, [address], [facility] [address], [place], [address], Progress Notes * DUSTIN VELASQUEZ MDOB: (69 yo F)Acc No.[id number]:05/15/2024 Patient: DUSTIN LARIOS Provider: TASHI TRIANA :1955 A ge:69 Y S ex:Female Date:05/15/2024 Address:[address] [place] [address] [address], [address], [facility] Subjective: * Chief Complaints: * 1 [...] used for adult depression screening: [facility] (PHQ-[facility]). * ROS: r eports [...] , L evel of education: retired, A wi household tobacco use? Y es. M iscellaneous: O ccupation: Retired. Safety issues A re there any firearms in the house? N o. A dvance Care Planning A re you your own decision-maker Y es, D o you have Power of Automotive Parts Clerk for Health or Medical? N o. S [...] use - Z72.0 5 . O ther vermin exterminator (current) drug therapy - Z79.899 presently taking [...] nicotine products and stop smoking hotline given http_s://www.trent.org/Xizoo-Xyztoo-Xrssfsk/Pwpqlg-Dowvkg-Xmntxqkygy http_s://psychcentral.com/depression/eas-rkvodqjot-nzwspvta-of-depression#treatm ents http__s://www.nim.nih.gov/health/topics/dvqbrc-pxggaj-acqreqpgzll http__s://www.trent.org/Tqpto-Lrhbmx-Tdabzqd/Treatments/Qykfme-Exwowh-Tsljnjifgdl educated on all medications, benefits, side effects [...] Smoking material was published 5. O ther alf (current) drug therapy Notes: Medication Refill: Care Instructions material was published 6. O thers Notes: Mirtazapine Oral Tablet (MIRTAZAPINE - ORAL) material was published, Escitalopram Oral Tablet (ESCITALOPRAM - ORAL) material was published, Trazodone Oral Tablet (TRAZODONE - ORAL) material was published, Ramelteon Oral Tablet (RAMELTEON - ORAL) material was published * Procedure Codes: G 9902 Pt scrn tbco and id as user, 85781 BEHAV ASSMT W/SCORE & DOCD/STAND INSTRUMENT, G2211 [...] PCP) * Billing Information: * Visit Code: 18558 OFFICE OUTPATIENT VISIT 25 MINUTES DETAILED HISTORY AND EXAM/MODERATE MEDICAL DECISION MAKING. * Procedure Codes: G9902 Pt scrn tbco and id as user. 45821 BEHAV ASSMT W/SCORE & DOCD/STAND INSTRUMENT. G2211 VISIT COMPLEXITY INHERENT TO ONGOING CARE RELATED TO A PATIENT'S SINGLE, SERIOUS CONDITION OR A COMPLEX CONDITION. * LOGIST Sign off status: Completed true * Provider: TASHI TRIANA Date: 0 05/15/2024 Generated for Gil castrejon/Ilene/Chacho on: 0 07/31/2024 10:20 AM CDT History and Physical Notes * HPI (History [...] Poor appetite or overeating: More than h nursing home the days Feeling bad about yourself o [...] Screening Findings: P ositve Follow-Up for Depression: [facility] treatment assessment, Patient follow-up to return when [...] Total: (0 to 4) No Anx iety [place]-Suicide Severity Rating Scale Suicide Risk (CSRS-screener) in [...] normal limits Orientation: awake, alert and jose aflredo ented x 3 Affect / mood: appropriate, [...]
--- OUTSIDE RECORDS SUMMARY | 2024-07-31 10:20 | XMS_ITS ---
Author Organization [facility] As [employer] Address [address] [facility] [address] [place] [address] Care Team Providers Care Jewelry Inspector Name Role Phone Malika Valdes Unavailable [phone] Allergies Allergen (clinical drug ingredient) Drug/Non Drug [...] 06/24/2024 Encounters Encounter Location Date Provider Diagnosis [place] [address] [facility] [address] [place] [address] 06/24/2024 Malika Valdes MDD (major depressiv e disorder), recurrent episode, mild F33.0 ; Generalized anxiety disorder F41.1 ; Primary insomnia F51.01 ; Tobacco use Z72.0 and 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 nih.gov/health/topi cs/ucfxbt-vtcdms-ag dications http__s://www.trent. org/Cvwnm-Lsakie-Zc lness/Treatments/Me xevw-Pyqtbg-Gsixxxm ions educated on all medications, benefits, side [...] products and stop smoking hotline given http_s://www.trent.o rg/Pipxo-Tgnukw-Kjk ness/Mental-Health- Conditions http_s://psychcentr Tensorcom.com/depression/t xl-bddldpsqk-ncnhkf lh-uf-paqxzvhvlg#tr eatments http__s://www.nimh. nih.gov/health/topi cs/jruign-ixraee-yw dications http__s://www.trent. org/Xrgok-Yufsdq-Go lness/Treatments/Me crka-Hiduda-Ljngckx ions educated on all medications, benefits, side [...] products and stop smoking hotline given http_s://www.trent.o rg/Rmhbu-Socnrg-Wik ness/Mental-Health- Conditions http_s://psychSirtris Pharmaceuticals.com/depression/t fi-hxssjmldk-ceyurw oz-oq-iiosqrssch#tr eatments http__s://www.nimh. nih.gov/health/topi cs/ljyalg-rokefp-tk dications http__s://www.trent. org/Ybhxt-Fyoubd-Wy lness/Treatments/Me hkqa-Ygnrjh-Vfnqbzz ions educated on all medications, benefits, side [...] products and stop smoking hotline given http_s://www.trent.o rg/Qqneu-Kdhlee-Ssq ness/Mental-Health- Conditions http_s://psychcentr al.com/depression/t jv-vjjgdfxkx-uunxtk fs-bf-jrxohncghm#tr eatments http__s://www.nimh. nih.gov/health/topi cs/hbkrgt-bqhlrc-au dications http__s://www.trent. org/Geguk-Jvertl-Tv lness/Treatments/Me vgvc-Rbvjug-Aplcana ions educated on all medications, benefits, side [...] and interactions with prescribed medications. 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 nih.gov/health/topi cs/tmoslt-vdlhzg-ze dications http__s://www.trent. 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 M edication Refill: Care Instructions material was published Next Appt Details Follow Up: 6 Months, Reason: f/u rx Provider Name:Malika Valdes , 07/31/2024 02:30:00 PM, [facility], [place] [address], [place], [address], Provider Name:Malika Valdes , 12/09/2024 01:00:00 PM, [employer] [address], [facility] [address], [place], [address], Progress Notes * DUSTIN VELASQUEZ MDOB: 6 (69 yo F)Acc No.[id number]:06/24/2024 Patient: Jordi DUSTIN ROSARIO Provider: TASHI TRIANA :1955 A ge:69 Y S ex:Female Date:06/24/2024 Address:[address] [place] [address] [address] [facility] Subjective: * Chief Complaints: * 1 . [...] es, D o you have Power of Hplc Chemist for Health or Medical? Y es. S [...] use - Z72.0 5 . O ther detention (current) drug therapy - Z79.899 presently taking [...] nicotine products and stop smoking hotline given http_s://www.trent.org/Xxipp-Gzlfrm-Tvomlqt/Dukixl-Kvcoue-Uhjbzqideg http_s://psychcentral.com/depression/ome-cjcfyitwz-dsnkvcug-of-depression#treatm ents http__s://www.nimh.nih.gov/health/topics/iknvwx-imbbil-ctjvjazggdg http__s://www.trent.org/Nysfl-Ivgrog-Psugwxk/Treatments/Yamfkl-Dxznyv-Gfcfoyyvqfk educated on all medications, benefits, side effects [...] Smoking material was published 5. O ther buttermilk drier operator (current) drug therapy Notes: Medication Refill: Care Instructions material was published * Procedure Codes: G 8950 PREHTN/HTN BP DOC INDCD F/U DOC, 62393 BEHAV ASSMT W/SCORE & DOCD/STAND INSTRUMENT, 08074 BEHAV ASSMT W/SCORE & DOCD/STAND INSTRUMENT, G8753 [...] rx) * Billing Information: * Visit Code: 77855 OFFICE OUTPATIENT VISIT 25 MINUTES DETAILED HISTORY AND EXAM/MODERATE MEDICAL DECISION MAKING. * Procedure Codes: G8950 PREHTN/HTN BP DOC INDCD F/U DOC. 63618 BEHAV ASSMT W/SCORE & DOCD/STAND INSTRUMENT. 33126 BEHAV ASSMT W/SCORE & DOCD/STAND INSTRUMENT. G8753 MOST RECENT SYSTOLIC BP >= 140MM HG. G2211 VISIT COMPLEXITY INHERENT TO ONGOING CARE RELATED TO A PATIENT'S SINGLE, SERIOUS CONDITION OR A COMPLEX CONDITION. G8755 MOST RECENT DIASTOLIC BP >= 90MM HG. * K SHAPER Sign off status: Completed true * Provider: TASHI TRIANA Date: 06/24/2024 Generated for Gil castrejon/Ilene/Chacho on: 0 07/31/2024 [...] Total: (0 to 4) No Anx iety [place]-Suicide Severity Rating Scale Suicide Risk (CSRS-screener) in [...]
--- OUTSIDE RECORDS SUMMARY | 2024-07-31 10:20 | XMS_ITS | Encounter Summary ---
Author Organization [facility] Address [address] [place] [address] Care Team Providers Care Campaign Worker Name Role Phone Unavailable Primary Care Provider Unavailabl e Encounter Details Date Type Department Care Team (Late st Contact Info) Description 02/01/2021 Lab Requisition [facility] Care Pathology Lab [address] [place] [address] Sommer Jameson MD [address] [place], [place] [id number] Illness, unspecified Social History Tobacco Use Types [...] Diagnosis URINE, VOIDED, THIN PREP, CYTOLOGY (OSC: [id number]; 01/28/2021): - Adequate for evaluation - Negative for high grade urothelial carcinoma - Urothelial cells and squamous cells 02/02/2021 2:37 PM CDT [facility] Microscopic Description and Comment Microscopic examination substantiates the final diagnosis. 02/02/2021 2:37 PM CDT [facility] Clinical History HEMATURIA 02/02/2021 2:37 PM CDT [facility] Materials Received Prepared slide received from [facility] [id number]. All material will be returned. 02/02/2021 2:37 PM CDT [facility] PATHOLOGY LAB Disclaimer The performance characteristics of all immunohistochemical and indirect immunofluorescence stains (if any) cited in this report were determined by the Histopathology Laboratory of [facility]. 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 02/02/2021 2:37 PM CDT [facility] PATHOLOGY LAB Case Report Surgical Pathology Report Case: [id number] Authorizing Provider: Sommer Jameson MD Collected: 01/28/2021 12:18 PM Ordering Location: [facility] Pathology Lab Received: 02/01/2021 12:18 PM Pathologist: Bobby Martinez MD Specimen: Slide Consultation 02/02/2021 2:37 PM CDT [facility] PATH[facility]Y LAB Embedded Images 02/02/2021 2:37 PM CDT [facility] PATH[facility]Y LAB Pathology/Cytolo gy SURGICAL PATHOLOGY CONSULTATION AND REPORT ON REFERRED SLIDES PREPARED ELSEWHERE / Unknown 01/28/2021 12:18 PM CDT 02/01/2021 12:18 PM CDT Sommer Jameson MD LAB - PATHOLOGY/CYTO LOGY ORDERABLES Performing Organization Address City/State/[facility] Co de Phone Number [facility] PATHOLOGY LAB [address] [place], [place] [address] [phone] documented in this encounter Visit Diagnoses Diagnosis Illness, unspecified documented in this encounter
--- OUTSIDE RECORDS SUMMARY | 2024-07-31 10:21 | XMS_ITS | Encounter Summary ---
Author Organization [facility] Healthcare Address [address] [place] [address] Care Team Providers Care Substation Operator Apprentice Name Role Phone Jc Pickett MD Primary Care Provider + [phone] Encounter Details Date Type Department Care Team (Late st Contact Info) Description 06/02/2021 Documentation [facility] Case Management [address] [place] [address] Luisana Lazaro RN Social History Tobacco Use [...] on file Legal Sex Female 2:21 AM DIRECTOR OF SERVICES Gender Identity Not on file Sexual Orientation Not on file documented as of this encounter Miscellaneous Notes * Plan of Care - Luisana Lazaro RN - 06/02/2021 11:11 AM CST Message sent to [facility] for follow up appt 06/10/21. Await reply. CM available for any discharge assistance. CTOR OF SERVICES documented in this encounter Plan of Treatment Not on file documented as of this encounter Visit Diagnoses Not on filedocumented in this encounter Care Teams Substation Operator Apprentice Relationship Specialty Start Date End Date Jc Pickett MD [address] [place] [address] PCP - General Internal Medicine 03/02/21 documented as of this encounter
--- OUTSIDE RECORDS SUMMARY | 2024-07-31 10:21 | XMS_ITS | Clinical Summary ---
Author Organization [facility] Address [address] [place] [address] Care Team Providers Care Chief Librarian Branch Or Department Name Role Phone Unavailable Primary Care Provider Unavailabl e Source Comments [facility],non-owned Affiliates and Associated Physician Practices is amultiple site organization consisting of ambulatory clinics and hospital sitesin [place], [place], [place] and [place]. This disclosure is being madepursuant to the Care Everywhere program and may not contain all information available regarding this patient. Last updated 18.[facility] Social History Tobacco Use Types Packs/Day Years [...] to complete this topic MENINGOCOCCAL (Group B) VACC INE SHARED DECISION-MAKING Aged Out No longer eligibl e based on patient's age to complete this topic MENINGOCOCCAL GROUPS A/C/Y/W VACCINE Aged Out No longer eligible b ased on patient's age to complete this topic
--- OUTSIDE RECORDS SUMMARY | 2024-07-31 10:21 | XMS_ITS | Referral Summary ---
Author Organization [facility] Address [address] [place] [address] Care Team Providers Care Child Development Specialist Name Role Phone Jc Pickett MD Primary Care Provider [phone] Allergies Active Allergy Reactions Criticality Noted Date [...] Tylenol if you are taking your home [place]) 30 tablet 2 Active gabapentin (NEURONTIN) 300 [...] in a Pain Clinic - Regimen includes [place] daily prn and oxycontin BID Immunizations Immunization Administration Dates Next Due Influenza, Unspecified 01/12/2021 [...] on file Legal Sex Female 2:21 AM PRE SCHOOL MANAGER Gender Identity Not on file Sexual Orientation Not on file Last Filed Vital Signs Vital Sign Reading Time Taken Comments Blood Pressure 138/83 06/10/2021 12:50 PM PRE SCHOOL MANAGER Pulse 84 06/10/2021 12:50 PM PRE SCHOOL MANAGER Temperature 36.8 C (98.2 F) 06/10/2021 12:50 PM PRE SCHOOL MANAGER Respiratory Rate 18 06/02/2021 8:22 AM PRE SCHOOL MANAGER Oxygen Saturation 96% 06/10/2021 12:50 PM PRE SCHOOL MANAGER Inhaled Oxygen Concentration - - Weight 51.3 kg (113 lb) 06/10/2021 12:50 PM PRE SCHOOL MANAGER Height 167.6 cm (5' 6 ) 05/31/2021 12:00 PM PRE SCHOOL MANAGER Body Mass Index 18.24 05/31/2021 12:00 PM PRE SCHOOL MANAGER Plan of Treatment Not on file Insurance AETNA [facility] HMO MEDICARE AET SENIOR SUPPLEMENT O MEDICARE AETNA SENIOR SUPPLEMENT Advance Directives For more information, please contact: [phone] * Full Code (Latest Code Status on File) Date Activated Date Inactivated Comments 05/31/2021 12:19 PM 06/02/2021 2:24 PM Care Teams Child Development Specialist Relationship Specialty Start Date End Date Jc Pickett MD [address] [place] [address] PCP - General Internal Medicine 03/02/21
--- OUTSIDE RECORDS SUMMARY | 2024-07-31 10:21 | XMS_ITS | Clinical Summary ---
Author Organization [facility] Address [address] [place] [address] Care Team Providers Care Warehouse Order Filler Name Role Phone Jc Pickett MD Primary Care Provider [phone] Allergies Active Allergy Reactions Criticality Noted Date [...] Tylenol if you are taking your home [place]) 30 tablet 2 Active gabapentin (NEURONTIN) 300 [...] in a Pain Clinic - Regimen includes [place] daily prn and oxycontin BID Immunizations Immunization [...] on file Legal Sex Female 2:21 AM SPECIAL EVENTS DRIVER Gender Identity Not on file Sexual Orientation [...] Comments Blood Pressure 138/83 06/10/2021 12:50 PM SPECIAL EVENTS DRIVER Pulse 84 06/10/2021 12:50 PM SPECIAL EVENTS DRIVER Temperature 36.8 C (98.2 F) 06/10/2021 12:50 PM SPECIAL EVENTS DRIVER Respiratory Rate 18 06/02/2021 8:22 AM SPECIAL EVENTS DRIVER Oxygen Saturation 96% 06/10/2021 12:50 PM SPECIAL EVENTS DRIVER Inhaled Oxygen Concentration - - Weight 51.3 kg (113 lb) 06/10/2021 12:50 PM SPECIAL EVENTS DRIVER Height 167.6 cm (5' 6 ) 05/31/2021 12:00 PM SPECIAL EVENTS DRIVER Body Mass Index 18.24 05/31/2021 12:00 PM SPECIAL EVENTS DRIVER Plan of Treatment Not on file Insurance AETNA [facility] HMO MEDICARE AETNA SENIOR SUPPLEMENT A[employer]NA HEALTHCARE HMO MEDICARE AETNA SENIOR SUPPLEMENT Advance Directives For more information, please contact: [phone] * Full Code (Latest Code Status on File) Date Activated Date Inactivated Comments 05/31/2021 12:19 PM 06/02/2021 2:24 PM Care Teams Warehouse Order Filler Relationship Specialty Start Date End Date Jc Pickett MD [address] [place] [address] PCP - General Internal Medicine 03/02/21"
== END 2024-07-31 09:48 | disposition home or self-care (01) ==
PROVIDERS: PCP Internal Medicine; Visit Provider Internal Medicine
DX: M25.552 Pain in left hip (principal); M25.551 Pain in right hip; M54.50 Low back pain, unspecified
CPT/HCPCS: 73521; 73721

== ENCOUNTER 2024-10-09 13:28 | Outpatient (CLI) | payer MEDICARE, SELFPAY ==
--- NOTE | ~2024-10-09 | US_ITS ---
US arterial ankle brachial ind INDICATION: Peripheral arterial disease TECHNIQUE: Segmental pressures and plethysmographic and Doppler waveforms of the brachial and lower e xtremity arteries were obtained. COMPARISON: None. FINDINGS: Right and left brachial artery pressures of 79 mm Hg and 84 mm Hg, respectively, are concordant (norm al difference <= 30 mmHg). There is biphasic flow in the bilateral dorsalis pedis and posterior tibia l arteries. The right ankle-brachial index (FRANK) is 1.06 (normal >= 0.9-1.0). The right great toe-brachial index (TBI) is 0.8 (normal >= 0.60). The left FRANK is 1. The left TBI is 0.8. IMPRESSION: 1. Normal ankle-brachial indices. Reviewed, dictated and finalized at location A.
--- NOTE | ~2024-10-09 | CT_ITS ---
CT Scan of the Chest without Contrast: Clinical Indication: Lung cancer screening, nicotine dependence Technique: Contiguous sections were acquired throughout the chest without intravenous contrast. Dose reduction technique was used on this scan by utilizing automated exposure control and iterative recon struction technique. The dose-length product (DLP) was 54.60 mGy-cm. COMPARISON: 01/22/2024 Findings: There is no evidence of any significant mediastinal, hilar or axillary lymphadenopathy. Coronary edy ry calcifications present. There is no evidence of pleural or pericardial effusion. The lungs are clear. No pulmonary nodules or infiltrates are noted. Severe emphysema present. Images through the upper abdomen reveal no abnormalities. Impression: Lung RADS 1: Negative. 12 month follow-up screening CT advised. Reviewed, dictated and finalized at location . Impression: Lung RADS 1: Negative. 12 month follow-up screening CT advised.
--- NOTE | ~2024-10-09 | US_ITS ---
EXAMINATION: US carotid duplex BI DATE: 10/09/2024 14:16 INDICATION: Peripheral arterial occlusive disease. Carotid stenosis. TECHNIQUE: Grayscale, color Doppler, and pulsed Doppler images of the cervical carotid arteries were obtained. The degree of vessel stenosis is placed in one of the following categories: normal, <50%, 5 0-69%, >=70% but less than near-occlusion, near-occlusion, or total occlusion. Note that percent sten osis relative to normal distal artery lumen diameter is indirectly measured from velocity measurement s as described by Gael, et al. Radiology 2003; 229:340-346. COMPARISON: None. FINDINGS: RIGHT: The right common carotid artery (CCA) peak systolic velocity (PSV) is 94 cm/s. The right internal car otid artery (ICA) PSV is 86 cm/s. The right ICA end-diastolic velocity (EDV) is 36 cm/s. The right IC A/CCA PSV ratio is 0.9. Grayscale and color Doppler images yield an estimate of <50% diameter reducti on from plaque in the ICA. The external carotid artery (ECA) PSV is 79 cm/s. There is antegrade flow in the right vertebral artery. LEFT: The left CCA PSV is 108 cm/s. The left ICA PSV is 91 cm/s. The left ICA EDV is 44 cm/s. The left ICA/ CCA PSV ratio is 0.8. Grayscale and color Doppler images yield an estimate of <50% diameter reduction from plaque in the ICA. The ECA PSV is 73 cm/s. There is antegrade flow in the left vertebral artery . IMPRESSION: 1. <50% stenosis from minimal plaque in the right internal carotid artery. 2. <50% stenosis from minimal plaque in the left internal carotid artery. Reviewed, dictated and finalized at location A.
--- OUTSIDE RECORDS SUMMARY | 2024-10-09 13:32 | XMS_ITS | Clinical Summary ---
Author Organization [facility] Address [address] [place] [address] Care Team Providers Care Piano Bench Assembler Name Role Phone Unavailable Primary Care Provider Unavailabl e Source Comments [facility],non-owned Affiliates and Associated Physician Practices is amultiple site organization consisting of ambulatory clinics and hospital sitesin [place], [place], [place] and [place]. This disclosure is being madepursuant to the Care Everywhere program and may not contain all information available regarding this patient. Last updated 18.[facility] Social History Tobacco Use Types Packs/Day Years Used Date Smoking Tobacco: Never Assessed Comments Unknown Sex and Gender Information Value Date Recorded Sex Assigned at Not on file Legal Sex Female 12:12 PM CDT Gender Identity Not on file [...] VACCINE ( - 2023-2 5 season) 2024 DEPRESSION SCREENING 05/14/2024 INFLUENZA VACCINE (Season Ended) 2025 Respiratory Syncytial Virus (RSV) Vaccine Pt: or [...] on patient's age to complete this topic Insurance [employer]
--- OUTSIDE RECORDS SUMMARY | 2024-10-09 13:32 | XMS_ITS | Encounter Summary ---
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 Await reply. CM available for any discharge assistance. RR TECHNICIAN documented in this encounter Plan of Treatment Not on file documented as of this encounter Visit Diagnoses Not on filedocumented in this encounter Care Teams Chronic Disease Manager Relationship Specialty Start Date End Date Jc Pickett MD [address] [place] [address] PCP - General Internal Medicine 03/02/21 documented as of this encounter
--- OUTSIDE RECORDS SUMMARY | 2024-10-09 13:32 | XMS_ITS | Patient Health Record ---
Author Organization [facility] ([email or web address]) Address [address] [facility] [address] [place] [address] Care Team Providers Care Ship Superintendent Name Role Phone Malika Valdes Unavailable [phone] Allergies Allergen (clinical drug ingredient) Drug/Non Drug Allergy documented on EMR Reaction Allergy Type Onset Date Status Substance with penicillin structure and antibacterial mechanism of action (substance) Penicillins Unknown Drug Allergy 07/24/2023 Active Reason For Referral No Information Medications Medication SIG (Take, Route, Frequency, Duration) Notes Start Date End Date Status Mirtazapine 30 MG TAKE 1 TABLET BY MOUTH EVERYDAY AT BEDTIME for 90 Active Levothyroxine Sodium 137 MCG Oral 07/24/2023 Active Sennosides-Docusate Sodium 8.6-50 mg Oral 07/24/2023 Not-Taking Alendronate Sodium 70 MG Oral 07/24/2023 Not-Taking Potassium Chloride ER 20 MEQ 2 tablet with food Oral Once a day 07/24/2023 Active Lisinopril 30 MG Oral 07/24/2023 Ac tive Calcitriol 0.5 MCG Oral 07/24/2023 Active Cyclobenzaprine HCl 10 MG Oral 07/24/2023 Active Levothyroxine Sodium 112 MCG Oral 07/24/2023 Active rOPINIRole HCl 1 MG 1 tablet 1 to 3 hour s before bedtime Orally Once a day Active LORazepam 1 MG Oral 07/24/2023 Not- Taking Lisinopril 10 MG Oral 07/24/2023 No t-Taking amLODIPine Besylate 10 MG Oral 07/24/2023 Active Eliquis 5 MG as directed Orally Active Naloxone HCl 4 MG/0.1ML Nasal 07/24/2023 Not-Taking ProAir HFA 108 (90 Base) MCG/ACT Inhalation 07/24/2023 Active Lovastatin 10 MG Oral 07/24/2023 Ac tive Levothyroxine Sodium 150 MCG Oral 07/24/2023 Not-Taking Doxycycline Hyclate 100 MG Oral 07/24/2023 Not-Taking traZODone HCl 100 MG 1 tablet Oral bedti me for 90 days GDR Active HYDROcodone-Acetaminophen 7.5-325 MG 1 tablet as needed Oral every 6 hrs 07/24/2023 Not-Taking Anoro Ellipta 62.5-25 MCG/INH Inhalation 07/24/2023 Not-Taking Ramelteon 8 MG 1 tablet at bedtime as needed Orally Once a day for 90 days Active Escitalopram Oxalate 20 MG 1 tablet Oral once a day for 90 days Active OxyCONTIN 20 MG Oral 07/24/2023 Not -Taking Mirtazapine 30 MG 1 tablet at bedtime Oral Once a day for 90 days Active Lisinopril-hydroCHLOROthiaz juan 10-12.5 MG Oral 07/24/2023 Not-Taking Immunizations Vaccine Route Administration Date Status Comme [...] 1st dose Unknown 08/20/2020 Ad ministered Novel Cavcjbnnr-O5P7-77, preservative free Unknown 04/26/2016 Administered Novel Oasxvlsnw-W5X3-60, preservative free Unknown 01/14/2020 Administered Langtice Covid-19 Vac cine 2nd dose Unknown 04/13/2021 [...] Status Risk Notes Problem Generalized anxiety disorder (85346321) Generalized anxiety disorder (F41.1) 4 Active confirmed Problem Anorexia nervosa, restricting type (14200086) Anorexia nervosa, restricting type (F50.01) 4 Active confirmed Problem Primary insomnia (4589109) Primary insomnia (F51.01) 4 Active confirmed Problem Tobacco use (496581700) Tobacco use (Z72.0) 4 Active confirmed Problem Long-term current use of drug therapy (514257999) 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 (Z79.899) 4 Active confirmed Problem 471581012 MDD (major depressive disorder), recurrent episode, mild (F33.0) Active confirmed Vital Signs Heart Rate 85 /min 07/31/2024 Height-cm 157.48 cm 07/31/2024 Blood pressure diastolic 76 mm Hg 07/31/2024 Weight-kg 52.62 kg 07/31/2024 Height 62.00 in 07/31/2024 Blood pressure systolic 126 mm Hg 07/31/2024 Weight 116 lbs 07/31/2024 BMI 21.21 kg/m2 07/31/2024 Encounters [facility] Date [facility] [address] [facility] [address] [facility] [address] [place] [address] 01/31/2024 Malika Valdes MDD (major depressiv e disorder), recurrent episode, mild F33.0 ; Generalized anxiety disorder F41.1 ; Primary insomnia F51.01 ; Anorexia nervosa, restricting type F50.01 ; Tobacco use Z72.0 and 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 Z79.899 [facility] emids [facility] [address] [facility] [address] [facility] [address] [place] [address] 05/15/2024 Malika Valdes MDD (major depressiv e disorder), recurrent episode, mild F33.0 ; Generalized anxiety disorder F41.1 ; Primary insomnia F51.01 ; Tobacco use Z72.0 and 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 Z79.899 [facility] emids [place] [address] [facility] [address] [facility] [address] [place] [address] 06/24/2024 Malika Valdes MDD (major depressiv e disorder), recurrent episode, mild F33.0 ; Generalized anxiety disorder F41.1 ; Primary insomnia F51.01 ; Tobacco use Z72.0 and 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 Z79.899 [facility] emids [place] [address] [facility] [address] [facility] [address] [place] [address] 07/31/2024 Malika Valdes MDD (major depressiv e disorder), recurrent episode, mild F33.0 ; Generalized anxiety disorder F41.1 ; Primary insomnia F51.01 ; Tobacco use Z72.0 ; Other fpc (current) drug therapy Z79.899 and Encounter for screening for depression Z13.31 [facility] emids [address] [facility] [address] [place] [address] 04/29/2024 Malika Valdes Assessments Encounter Date Diagnosis (ICD Code) Assessment Notes Treatment Notes Treatment Clinical Notes Section Notes 01/31/2024 Generalized anxiety disorder (ICD-10 - F41.1) Generalized Anxiety Disorder: Care Instructions material was published presently taking Lexapro 20 mg daily, Remeron 30 mg bedtime, Trazodone 200 mg bedtime Depression- Lexapro 20 mg daily, Remeron 30 mg bedtime Anxiety- Lexapro 20 mg daily, Remeron 30 mg bedtime sleep- Trazodone 200 mg bedtime Tobacco use- smoking cessation education anorxia - education http_s://www.trent.o rg/Fcukz-Yysbll-Pbh ness/Mental-Health- Conditions http_s://psychcentr judo.com/depression/t vq-gbpawedbl-damync jm-pi-kijcoubpll#tr eatments http__s://www.nimh. nih.gov/health/topi cs/bdspjq-xlnrxh-sw dications http__s://www.trent. org/Lzgdp-Pevzii-Ns lness/Treatments/Me cctq-Babpwk-Odwyqca ions educated on all medications, benefits, side [...] smoking cessation education anorxia - education http_s://www.trent.o rg/Vjunt-Lhajnc-Uxy ness/Mental-Health- Conditions http_s://psychcentr judo.com/depression/t jo-xemubpivj-wdyabk cj-nn-cojaymuzlq#tr eatments http__s://www.nimh. nih.gov/health/topi cs/ouutzp-lioeek-yx dications http__s://www.trent. org/Eealn-Zjcxkt-Ej lness/Treatments/Me yrpv-Vkyedw-Tghxolr ions educated on all medications, benefits, side [...] products and stop smoking hotline given http_s://www.trent.o rg/Khyhp-Gtmovj-Zot ness/Mental-Health- Conditions http_s://psychOptaHEALTH.com/depression/t vt-qhgfmeuhi-apctmv wb-hv-iaaumpnwkv#tr eatments http__s://www.nimh. nih.gov/health/topi cs/xovsdl-ahqoxo-hy dications http__s://www.trent. org/Npzrc-Yufjij-Df lness/Treatments/Me ltjg-Nnrkxu-Sndkdpe ions educated on all medications, benefits, side [...] products and stop smoking hotline given http_s://www.trent.o rg/Ykexm-Ojhbhc-Emm ness/Mental-Health- Conditions http_s://psychcentr al.com/depression/t pu-aseknyyod-enzabm wl-nn-trvsqofwdl#tr eatments http__s://www.nimh. nih.gov/health/topi cs/kkibhs-oxuwsx-yy dications http__s://www.trent. org/Yobtc-Poueng-Dk lness/Treatments/Me msbt-Zuxpif-Mrszjoo ions educated on all medications, benefits, side [...] products and stop smoking hotline given http_s://www.trent.o rg/Dnhqh-Ekiwzd-Che ness/Mental-Health- Conditions http_s://psychcentr judo.com/depression/t fn-fzwkcelxm-qqqkho pl-ya-ojpbnzpbcy#tr eatments http__s://www.nimh. nih.gov/health/topi cs/bvuzvz-bbjnys-hc dications http__s://www.trent. org/Gjina-Psyloo-Ra lness/Treatments/Me jelq-Hglzcw-Cinpqmn ions educated on all medications, benefits, side [...] potential neurotoxicity and interactions with prescribed medications. 07/31/2024 MDD (major depressive disorder), recurrent episode, mild (ICD-10 - F33.0) Learning About How to Get Help During a Mental Health Crisis material was published, Preventing Depression From Coming Back: Care Instructions material was published, Learning About Depression material was published, Preventing Depression From Coming Back: Care Instructions material was published 1. Depression- Lexapro 20 mg daily, Remeron 30 mg bedtime labs PCP completed 2. Anxiety- Lexapro 20 mg daily, Remeron 30 mg bedtime 3. sleep- Trazodone 100 mg bedtime- Ramelteon 8 mg at bedtime educated to take all rx as prescribed educated on all rx, reported sleep issues pain and COPD, and increase need for bathroom no hx sleep study 4. tobacco use- smoking cessation education Do not smoke. [...] products and stop smoking hotline given http_s://www.trent.o rg/Plcgn-Bthkeu-Gse ness/Mental-Health- Conditions http_s://psychcentr al.com/depression/t px-xinqaafex-hffnfu fq-fu-nymokeuerd#tr eatments http__s://www.nimh. nih.gov/health/topi cs/bxnbns-lesjnm-fl dications http__s://www.trent. org/Xeadk-Hjjtgq-Hq lness/Treatments/Me xezh-Dqyekt-Tsyqtpo ions educated on all medications, benefits, side [...] smoking cessation education anorxia - education http_s://www.trent.o rg/Mwzln-Ddgpys-Nej ness/Mental-Health- Conditions http_s://psychcentr judo.com/depression/t nm-gqqiddeqt-poqnvg bg-ye-lsgprrwwzc#tr eatments http__s://www.nimh. nih.gov/health/topi cs/drcdfb-orrgoe-ir dications http__s://www.trent. org/Bbzxv-Bjiuyz-Xi lness/Treatments/Me ujpo-Jxkbtr-Grughel ions educated on all medications, benefits, side [...] potential neurotoxicity and interactions with prescribed medications. 07/31/2024 Generalized anxiety disorder (ICD-10 - F41.1) Generalized Anxiety Disorder: Care Instructions material was published, Learning About Generalized Anxiety Disorder material was published 1. Depression- Lexapro 20 mg daily, Remeron 30 mg bedtime labs PCP completed 2. Anxiety- Lexapro 20 mg daily, Remeron 30 mg bedtime 3. sleep- Trazodone 100 mg bedtime- Ramelteon 8 mg at bedtime educated to take all rx as prescribed educated on all rx, reported sleep issues pain and COPD, and increase need for bathroom no hx sleep study 4. tobacco use- smoking cessation education Do not smoke. [...] products and stop smoking hotline given http_s://www.trent.o rg/Viaks-Twysbv-Gkv ness/Mental-Health- Conditions http_s://psychcentr judo.com/depression/t cv-zvqearuvs-jyyvlh ex-tw-eqrswnxcnc#tr eatments http__s://www.nimh. nih.gov/health/topi cs/vvbdec-fmtcwq-bs dications http__s://www.trent. org/Ohlah-Wszkcx-Ai lness/Treatments/Me zzhn-Binyyx-Vjuolol ions educated on all medications, benefits, side [...] products and stop smoking hotline given http_s://www.trent.o rg/Rdamx-Ureiey-Fah ness/Mental-Health- Conditions http_s://psychcentr [employer] User Swedencom/depression/t oj-odmwtzwjr-pctmrd cd-ml-znqlipwhey#tr eatments http__s://www.nimh. nih.gov/health/topi cs/oxdsgj-hgjxot-ci dications http__s://www.trent. org/Lsxfs-Jzcrff-Lq lness/Treatments/Me qiuj-Ggrkoz-Zcojpbl ions educated on all medications, benefits, side [...] products and stop smoking hotline given http_s://www.trent.o rg/Wotqt-Dneykv-Bsc ness/Mental-Health- Conditions http_s://psychMyDROBEr judo.com/depression/t iq-vzfzhikvq-balcwl zu-nr-qwdxoittfw#tr eatments http__s://www.nimh. nih.gov/health/topi cs/tkkbcx-zeppwa-ro dications http__s://www.trent. org/Salhd-Ezwhzl-Rc lness/Treatments/Me xtze-Pxlbyf-Vwamwdc ions educated on all medications, benefits, side [...] products and stop smoking hotline given http_s://www.trent.o rg/Qmizi-Ezllaw-Dfa ness/Mental-Health- Conditions http_s://psychcentr al.com/depression/t gi-oczvdviea-knhlfq tg-dv-irgvhkoqwg#tr eatments http__s://www.nimh. nih.gov/health/topi cs/yyhihf-leulvc-du dications http__s://www.trent. org/Psxju-Avmmwn-Pq lness/Treatments/Me ruhn-Rzsybo-Xrhkdoa ions educated on all medications, benefits, side [...] products and stop smoking hotline given http_s://www.trent.o rg/Kcsmz-Rdyskv-Rpn ness/Mental-Health- Conditions http_s://psychcentr judo.com/depression/t wr-zghjshbkx-nasnvb jj-ql-ktoqhghupt#tr eatments http__s://www.nimh. nih.gov/health/topi cs/pvdcyp-gzlljc-on dications http__s://www.trent. org/Eqbxa-Dutsfk-Wr lness/Treatments/Me pcla-Hnledm-Xpgebur ions educated on all medications, benefits, side [...] potential neurotoxicity and interactions with prescribed medications. 07/31/2024 Primary insomnia (ICD-10 - F51.01) Insomnia: Care Instructions material was published, Insomnia: Care Instructions material was published, Learning About Sleeping Well material was published 1. Depression- Lexapro 20 mg daily, Remeron 30 mg bedtime labs PCP completed 2. Anxiety- Lexapro 20 mg daily, Remeron 30 mg bedtime 3. sleep- Trazodone 100 mg bedtime- Ramelteon 8 mg at bedtime educated to take all rx as prescribed educated on all rx, reported sleep issues pain and COPD, and increase need for bathroom no hx sleep study 4. tobacco use- smoking cessation education Do not smoke. [...] products and stop smoking hotline given http_s://www.trent.o rg/Rcaqc-Sjbxse-Yxw ness/Mental-Health- Conditions http_s://psychMyDROBEr judo.com/depression/t fm-vftguefej-btjqiq wo-ne-nbwymicgrn#tr eatments http__s://www.nimh. nih.gov/health/topi cs/ndnorq-mlivna-fu dications http__s://www.trent. org/Tzwww-Ojqhbi-Uj lness/Treatments/Me ylcu-Ixfqdn-Rbsnpis ions educated on all medications, benefits, side [...] smoking cessation education anorxia - education http_s://www.trent.o rg/Ymxof-Oewbqa-Gan ness/Mental-Health- Conditions http_s://psychcentr judo.com/depression/t ik-lefpfgznt-vfbbmy yd-ud-gldumpnbyz#tr eatments http__s://www.nimh. nih.gov/health/topi cs/fmwhrj-hlutlx-kk dications http__s://www.trent. org/Bqxns-Akvjyl-Hn lness/Treatments/Me ewjz-Ofnmxz-Ufhhvzc ions educated on all medications, benefits, side [...] potential neurotoxicity and interactions with prescribed medications. 07/31/2024 Tobacco use (ICD-10 - Z72.0) Learning About [...] Medicines To Quit Smoking material was published 1. Depression- Lexapro 20 mg daily, Remeron 30 mg bedtime labs PCP completed 2. Anxiety- Lexapro 20 mg daily, Remeron 30 mg bedtime 3. sleep- Trazodone 100 mg bedtime- Ramelteon 8 mg at bedtime educated to take all rx as prescribed educated on all rx, reported sleep issues pain and COPD, and increase need for bathroom no hx sleep study 4. tobacco use- smoking cessation education Do not smoke. [...] products and stop smoking hotline given http_s://www.trent.o rg/Kwsbt-Chuovt-Ylq ness/Mental-Health- Conditions http_s://psychcentr al.com/depression/t bf-mewxfwkgf-msqztw if-zp-urmnzywlek#tr eatments http__s://www.nim. nih.gov/health/topi cs/xcmmrl-vvlgzr-pv dications http__s://www.trent. org/Guecm-Ovnfqg-Pc lness/Treatments/Me iuny-Sukfsb-Avmczjx ions educated on all medications, benefits, side [...] smoking cessation education anorxia - education http_s://www.trent.o rg/Gqwmy-Cffpre-Anf ness/Mental-Health- Conditions http_s://psychcentr judo.com/depression/t na-sjkblbksu-sofffs xl-vr-nlhdqsrzxb#tr eatments http__s://www.nimh. nih.gov/health/topi cs/qwouov-vmsjse-mb dications http__s://www.trent. org/Arudv-Qjylcc-Pt lness/Treatments/Me dssx-Wfrfwc-Rvxaori ions educated on all medications, benefits, side [...] products and stop smoking hotline given http_s://www.trent.o rg/Glotp-Afbuyq-Gzl ness/Mental-Health- Conditions http_s://psychOptaHEALTH.com/depression/t pi-eoapgkukw-eutndv ta-wv-ullpimqccl#tr eatments http__s://www.nimh. nih.gov/health/topi cs/cfoeev-xawlxq-gg dications http__s://www.trent. org/Zmvex-Aqlumw-Sr lness/Treatments/Me kjho-Tjsaki-Gnbfpeo ions educated on all medications, benefits, side [...] interactions with prescribed medications. 05/15/2024 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 (ICD-10 - Z79.899) Medication [...] products and stop smoking hotline given http_s://www.trent.o rg/Admur-Hcxipp-Uwi ness/Mental-Health- Conditions http_s://psychcentr judo.com/depression/t sa-gbwegzwpg-yigtgk wr-fs-ppbwnwhlvp#tr eatments http__s://www.nimh. nih.gov/health/topi cs/kvywjq-fpjwvo-pl dications http__s://www.trent. org/Lfjcx-Zlmntj-Qu lness/Treatments/Me mooj-Whyvcv-Domnphp ions educated on all medications, benefits, side [...] and interactions with prescribed medications. 06/24/2024 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 (ICD-10 - Z79.899) Medication [...] products and stop smoking hotline given http_s://www.trent.o rg/Zjvfg-Lyxewl-Qqk ness/Mental-Health- Conditions http_s://psychcentr judo.com/depression/t br-hniltoezi-ncuseb az-xh-xaxuecvkah#tr eatments http__s://www.nimh. nih.gov/health/topi cs/pdhnvs-piyeun-yj dications http__s://www.trent. org/Mmwud-Bshmkz-Cq lness/Treatments/Me bjlb-Jkuhhc-Hhpiugp ions educated on all medications, benefits, side [...] and interactions with prescribed medications. 01/31/2024 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 (ICD-10 - Z79.899) presently taking Lexapro 20 mg daily, Remeron 30 mg bedtime, Trazodone 200 mg bedtime Depression- Lexapro 20 mg daily, Remeron 30 mg bedtime Anxiety- Lexapro 20 mg daily, Remeron 30 mg bedtime sleep- Trazodone 200 mg bedtime Tobacco use- smoking cessation education anorxia - education http_s://www.trent.o rg/Fowxe-Mgvhil-Key ness/Mental-Health- Conditions http_s://psychcentr judo.com/depression/t vj-tpeevmzhz-bsjzgj fw-dz-yncktuscwp#tr eatments http__s://www.nimh. nih.gov/health/topi cs/pbzihu-voobkn-jf dications http__s://www.trent. org/Knlcp-Fpnqky-Va lness/Treatments/Me zjyk-Lntfph-Oljdufu ions educated on all medications, benefits, side [...] potential neurotoxicity and interactions with prescribed medications. 07/31/2024 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 (ICD-10 - Z79.116) Medication Refill: Care Instructions material was published 1. Depression- Lexapro 20 mg daily, Remeron 30 mg bedtime labs PCP completed 2. Anxiety- Lexapro 20 mg daily, Remeron 30 mg bedtime 3. sleep- Trazodone 100 mg bedtime- Ramelteon 8 mg at bedtime educated to take all rx as prescribed educated on all rx, reported sleep issues pain and COPD, and increase need for bathroom no hx sleep study 4. tobacco use- smoking cessation education Do not smoke. [...] products and stop smoking hotline given http_s://www.trent.o rg/Dupfi-Ymfgbp-Fru ness/Mental-Health- Conditions http_s://psychMyDROBEr judo.com/depression/t rb-jyhtjupvr-gpixlr ya-fg-szxfxntspj#tr eatments http__s://www.nimh. nih.gov/health/topi cs/btgtoe-ggkpcl-rz dications http__s://www.trent. org/Ttofa-Mvizrm-Zv lness/Treatments/Me tfky-Gqvcfk-Owlhjtf ions educated on all medications, benefits, side [...] potential neurotoxicity and interactions with prescribed medications. 07/31/2024 Encounter for screening for depression (ICD-10 - Z13.31) 1. Depression- Lexapro 20 mg daily, Remeron 30 mg bedtime labs PCP completed 2. Anxiety- Lexapro 20 mg daily, Remeron 30 mg bedtime 3. sleep- Trazodone 100 mg bedtime- Ramelteon 8 mg at bedtime educated to take all rx as prescribed educated on all rx, reported sleep issues pain and COPD, and increase need for bathroom no hx sleep study 4. tobacco use- smoking cessation education Do not smoke. [...] products and stop smoking hotline given http_s://www.trent.o rg/Tzawe-Kyeulw-Red ness/Mental-Health- Conditions http_s://psychcentr judo.com/depression/t am-plzwgnwpv-phkzqs ik-tm-prewleonby#tr eatments http__s://www.nimh. nih.gov/health/topi cs/wshvro-kmgdsl-uc dications http__s://www.trent. org/Qpcag-Xalgbv-Ls lness/Treatments/Me xtnf-Zoejoy-Irdyhhr ions educated on all medications, benefits, side [...] smoking cessation education anorxia - education http_s://www.trent.o rg/Xxtdb-Gunjxv-Frw ness/Mental-Health- Conditions http_s://psychcentr al.com/depression/t cf-dfkqnypec-qgilyr ys-nw-hhnvcssfxe#tr eatments http__s://www.nimh. nih.gov/health/topi cs/djvmhq-wzeakp-in dications http__s://www.trent. org/Arkmw-Gfiyir-Et lness/Treatments/Me vjdf-Hmaojx-Praqdlk ions educated on all medications, benefits, side [...] products and stop smoking hotline given http_s://www.trent.o rg/Dlaxw-Spglom-Lqc ness/Mental-Health- Conditions http_s://psychMyDROBEr judo.com/depression/t ze-vbaenvclk-qxbjpj pq-up-zximjyxiwu#tr eatments http__s://www.nimh. nih.gov/health/topi cs/dppidm-xpqmow-tq dications http__s://www.trent. org/Tdypp-Exwjyx-Ia lness/Treatments/Me kbzv-Ppzugy-Etwmmhl ions educated on all medications, benefits, side [...] Next Appt Details Provider Name:Malika Valdes , 12/09/2024 01:00:00 PM, [address], [address], [place], [address], Provider Name:Malika Valdes , 01/30/2025 01:00:00 PM, [address], [place], [address], Insurance Providers Payer Name Payer Address Payer Phone Subscriber Number Group Number Insured Name Patient Relationship to Insured Coverage Start Date Coverage End Date [place] [address] [place] [phone] [id number] DUSTIN VELASQUEZ Self - patient is the insured [employer] Medicare Supplement [address] [place] [address] [id number] DUSTIN VELASQUEZ Self - patient is the insured Medical (General) History Medical History History ICD Code Problems: Anorexia nervosa Anxiety disorder Long-term drug therapy Memory impairment Mild major depression Primary insomnia Tobacco user , Surgical History Surgery Date(Month/Year) Procedure on back (896973279) Hysterectomy/revise vagina (22270) 05/14 Hysterectomy (19686) 05/14/1984 Appendectomy (82829) 12/13/1979
--- OUTSIDE RECORDS SUMMARY | 2024-10-09 13:32 | XMS_ITS | Encounter Summary ---
Author Organization [facility] Address [address] [place] [address] Care Team Providers Care Ecmo Specialist Name Role Phone Unavailable Primary Care Provider Unavailabl e Encounter Details Date Type Department Care Team (Late st Contact Info) Description 02/01/2021 Lab Requisition [facility] Care Pathology Lab [address] [place] [address] Sommer Jameson MD [address] [place], [place] [id number] Illness, unspecified Social History Tobacco Use Types [...] Diagnosis URINE, VOIDED, THIN PREP, CYTOLOGY (OSC: [id number]; 01/28/2021): - Adequate for evaluation - Negative for high grade urothelial carcinoma - Urothelial cells and squamous cells 02/02/2021 2:37 PM CDT [facility] at 1437 CDT Microscopic Description and Comment Microscopic examination substantiates the final diagnosis. 02/02/2021 2:37 PM CDT [facility] Clinical History HEMATURIA 02/02/2021 2:37 PM CDT [facility] Materials Received Prepared slide received from [facility] [id number]. All material will be returned. 02/02/2021 2:37 PM CDT [facility] Disclaimer The performance characteristics of all immunohistochemical and indirect immunofluorescence stains (if any) cited in this report were determined by the [facility] of [facility]. 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 02/02/2021 2:37 PM CDT [facility] Case Report Surgical Pathology Report Case: [id number] Authorizing Provider: Sommer Jameson MD Collected: 01/28/2021 12:18 PM Ordering Location: [facility] Lab Received: 02/01/2021 12:18 PM Pathologist: Bobby Martinez MD Specimen: Slide Consultation 02/02/2021 2:37 PM CDT [facility] Embedded Images 02/02/2021 2:37 PM CDT [facility] Pathology/Cytolo gy SURGICAL PATHOLOGY CONSULTATION AND REPORT ON REFERRED SLIDES PREPARED ELSEWHERE / Unknown 01/28/2021 12:18 PM CDT 02/01/2021 12:18 PM CDT Sommer Jameson MD LAB - PATHOLOGY/CYTOLOGY ORDERAB LES Final Result [facility] [address] [place] [address], [facility] [phone] documented in this encounter Visit Diagnoses Diagnosis Illness, unspecified documented in this encounter
--- OUTSIDE RECORDS SUMMARY | 2024-10-09 13:32 | XMS_ITS | Clinical Summary ---
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 Gender Identity Not on file Sexual Orientation [...] Comments Blood Pressure 138/83 06/10/2021 12:50 PM NURSE ESTHETICIAN Pulse 84 06/10/2021 12:50 PM NURSE ESTHETICIAN Temperature 36.8 C (98.2 F) 06/10/2021 12:50 PM NURSE ESTHETICIAN Respiratory Rate 18 06/02/2021 8:22 AM NURSE ESTHETICIAN Oxygen Saturation 96% 06/10/2021 12:50 PM NURSE ESTHETICIAN Inhaled Oxygen Concentration - - Weight 51.3 kg (113 lb) 06/10/2021 12:50 PM NURSE ESTHETICIAN Height 167.6 cm (5' 6) 05/31/2021 12:00 PM NURSE ESTHETICIAN Body Mass Index 18.24 05/31/2021 12:00 PM NURSE ESTHETICIAN Plan of Treatment Not on file Insurance AETNA [facility] HMO MEDICARE AETNA SENIOR SUPPLEMENT [employer] HMO MEDICARE AETNA SENIOR SUPPLEMENT Advance Directives For more information, please contact: [phone] * Full Code (Latest Code Status on File) Date Activated Date Inactivated Comments 05/31/2021 12:19 PM 06/02/2021 2:24 PM Care Teams Community Support Professional Relationship Specialty Start Date End Date Jc Pickett MD [address] [place] [address] PCP - General Internal Medicine 03/02/21
--- OUTSIDE RECORDS SUMMARY | 2024-10-09 13:32 | XMS_ITS | Referral Summary ---
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 Gender Identity Not on file Sexual Orientation Not on file Last Filed Vital Signs Vital Sign Reading Time Taken Comments Blood Pressure 138/83 06/10/2021 12:50 PM DIRECTOR OF TRANSPORTATION Pulse 84 06/10/2021 12:50 PM DIRECTOR OF TRANSPORTATION Temperature 36.8 C (98.2 F) 06/10/2021 12:50 PM DIRECTOR OF TRANSPORTATION Respiratory Rate 18 06/02/2021 8:22 AM DIRECTOR OF TRANSPORTATION Oxygen Saturation 96% 06/10/2021 12:50 PM DIRECTOR OF TRANSPORTATION Inhaled Oxygen Concentration - - Weight 51.3 kg (113 lb) 06/10/2021 12:50 PM DIRECTOR OF TRANSPORTATION Height 167.6 cm (5' 6) 05/31/2021 12:00 PM DIRECTOR OF TRANSPORTATION Body Mass Index 18.24 05/31/2021 12:00 PM DIRECTOR OF TRANSPORTATION Plan of Treatment Not on file Insurance AETNA [facility] HMO MEDICARE AET SENIOR SUPPLEMENT O MEDICARE AETNA SENIOR SUPPLEMENT Advance Directives For more information, please contact: [phone] * Full Code (Latest Code Status on File) Date Activated Date Inactivated Comments 05/31/2021 12:19 PM 06/02/2021 2:24 PM Care Teams Livestock Ranch Hand Relationship Specialty Start Date End Date Jc Pickett MD [address] [place] [address] PCP - General Internal Medicine 03/02/21
== END 2024-10-09 13:29 | disposition home or self-care (01) ==
LOC: CHSIMG 13:30
PROVIDERS: PCP Internal Medicine; Visit Provider Internal Medicine
DX: Z12.2 Encounter for screening for malignant neoplasm of respiratory organs (principal); Z87.891 Personal history of nicotine dependence; I73.9 Peripheral vascular disease, unspecified; I65.23 Occlusion and stenosis of bilateral carotid arteries
CPT/HCPCS: 71271; 93880; 93922

== ENCOUNTER 2024-10-22 07:56 | Outpatient (CLI) | payer MEDICARE, SELFPAY ==
--- NOTE | ~2024-10-22 | CT_ITS ---
Clinical Indication: Pulmonary embolus CT Scan of the Chest with Contrast: Technique: Contiguous sections were acquired throughout the chest after intravenous administration of 100 cc of Omnipaque 350. Dose reduction technique was used on this scan by utilizing automated expos ure control and iterative reconstruction technique. The dose-length product (DLP) was 147.05 mGy-cm. COMPARISON: 10/09/2024, 01/22/2024 Findings: There is no evidence of any significant mediastinal, hilar or axillary lymphadenopathy. There is no f illing defect in the pulmonary arterial tree to suggest pulmonary embolus. There is no evidence of ao rtic dissection or aneurysm. There is no evidence of pleural or pericardial effusion. The lungs are clear. No pulmonary nodules or infiltrates are noted. Advanced osteopenia. Images through the upper abdomen reveal no abnormalities. Impression: No evidence of pulmonary embolus, aortic dissection, or aortic aneurysm. Advanced emphysema. Clear lungs. Reviewed, dictated and finalized at [facility]. Impression: No evidence of pulmonary embolus, aortic dissection, or aortic aneurysm. Advanced emphysema. Clear lungs.
--- OUTSIDE RECORDS SUMMARY | 2024-10-22 08:05 | XMS_ITS | Encounter Summary ---
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 Await reply. CM available for any discharge assistance. MBLY LEAD PERSON documented in this encounter Plan of Treatment Not on file documented as of this encounter Visit Diagnoses Not on filedocumented in this encounter Care Teams Oracle Application Consultant Relationship Specialty Start Date End Date Jc Pickett MD [address] [place] [address] PCP - General Internal Medicine 03/02/21 documented as of this encounter
--- OUTSIDE RECORDS SUMMARY | 2024-10-22 08:05 | XMS_ITS | Encounter Summary ---
Author Organization [facility] Address [address] [place] [address] Care Team Providers Care Kennel Keeper Name Role Phone Unavailable Primary Care Provider Unavailabl e Encounter Details Date Type Department Care Team (Late st Contact Info) Description 02/01/2021 Lab Requisition [facility] Care Pathology Lab [address] [place] [address] Sommer Jameson MD [address] [place], [place] [id number] Illness, unspecified Social History Tobacco Use Types [...] Diagnosis URINE, VOIDED, THIN PREP, CYTOLOGY (OSC: [id number]; 01/28/2021): - Adequate for evaluation - Negative for high grade urothelial carcinoma - Urothelial cells and squamous cells 02/02/2021 2:37 PM CDT [facility] at 1437 CDT Microscopic Description and Comment Microscopic examination substantiates the final diagnosis. 02/02/2021 2:37 PM CDT [facility] Clinical History HEMATURIA 02/02/2021 2:37 PM CDT [facility] Materials Received Prepared slide received from [facility] [id number]. All material will be returned. 02/02/2021 2:37 PM CDT [facility] Disclaimer The performance characteristics of all immunohistochemical and indirect immunofluorescence stains (if any) cited in this report were determined by the [facility]opathology Laboratory of [facility]. 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 02/02/2021 2:37 PM CDT [facility] Case Report Surgical Pathology Report Case: [id number] Authorizing Provider: Sommer Jameson MD Collected: 01/28/2021 12:18 PM Ordering Location: [facility] Pathology Lab Received: 02/01/2021 12:18 PM Pathologist: Bobby Martinez MD Specimen: Slide Consultation 02/02/2021 2:37 PM CDT [facility] Embedded Images 02/02/2021 2:37 PM CDT [facility] Pathology/Cytolo gy SURGICAL PATHOLOGY CONSULTATION AND REPORT ON REFERRED SLIDES PREPARED ELSEWHERE / Unknown 01/28/2021 12:18 PM CDT 02/01/2021 12:18 PM CDT Sommer Jameson MD LAB - PATHOLOGY/CYTOLOGY ORDERAB LES Final Result [facility] [address] [place] [address], [facility] [phone] documented in this encounter Visit Diagnoses Diagnosis Illness, unspecified documented in this encounter
--- OUTSIDE RECORDS SUMMARY | 2024-10-22 08:05 | XMS_ITS | Patient Health Record ---
Author Organization [facility] As [employer] Address [address] [facility] [address] [place] [address] Care Team Providers Care Retail Maintenance Technician Name Role Phone Malika Valdes Unavailable [phone] Allergies Allergen (clinical drug ingredient) Drug/Non Drug [...] 1st dose Unknown 08/20/2020 Ad ministered Novel Hzylxvonb-E6K3-57, preservative free Unknown 04/26/2016 Administered Novel Ytihvqnzm-M0S0-01, preservative free Unknown 01/14/2020 Administered LearnVest Covid-19 Vac cine 2nd dose Unknown 04/13/2021 [...] Status Risk Notes Problem Generalized anxiety disorder (10515884) Generalized anxiety disorder (F41.1) 4 Active confirmed Problem Anorexia nervosa, restricting type (03605925) Anorexia nervosa, restricting type (F50.01) 4 Active confirmed Problem Primary insomnia (6817055) Primary insomnia (F51.01) 4 Active confirmed Problem Tobacco use (410303491) Tobacco use (Z72.0) 4 Active confirmed Problem Long-term current use of drug therapy (540404288) Other prison (current) drug therapy (Z79.899) 4 Active confirmed Problem 010019822 MDD (major depressive disorder), recurrent episode, mild (F33.0) Active confirmed Vital Signs Heart Rate 85 /min 07/31/2024 Height-cm 157.48 cm 07/31/2024 Blood pressure diastolic 76 mm Hg 07/31/2024 Weight-kg 52.62 kg 07/31/2024 Height 62.00 in 07/31/2024 Blood pressure systolic 126 mm Hg 07/31/2024 Weight 116 lbs 07/31/2024 BMI 21.21 kg/m2 07/31/2024 Encounters Encounter Location Date [facility] [address] [facility] [address] [facility] [address] [place] [address] 01/31/2024 Malika Valdes MDD (major depressiv e disorder), recurrent episode, mild F33.0 ; Generalized anxiety disorder F41.1 ; Primary insomnia F51.01 ; Anorexia nervosa, restricting type F50.01 ; Tobacco use Z72.0 and Other medical terminologist (current) drug therapy Z79.899 [facility] [address] [facility] [address] [facility] [address] [place] [address] 05/15/2024 Malika Valdes MDD (major depressiv e disorder), recurrent episode, mild F33.0 ; Generalized anxiety disorder F41.1 ; Primary insomnia F51.01 ; Tobacco use Z72.0 and Other prison (current) drug therapy Z79.899 [facility] Delivery [facility] [place] [id number] [facility] [address] [facility] [address] [place] [address] 06/24/2024 Malika Valdes MDD (major depressiv e disorder), recurrent episode, mild F33.0 ; Generalized anxiety disorder F41.1 ; Primary insomnia F51.01 ; Tobacco use Z72.0 and Other medical terminologist (current) drug therapy Z79.899 [facility] Delivery [facility] [place] [id number] [facility] [address] [facility] [address] [place] [address] 07/31/2024 Malika Valdes MDD (major depressiv e disorder), recurrent episode, mild F33.0 ; Generalized anxiety disorder F41.1 ; Primary insomnia F51.01 ; Tobacco use Z72.0 ; Other prison (current) drug therapy Z79.899 and Encounter for screening for depression Z13.31 [facility] [address] [facility] [address] [place] [address] 04/29/2024 Malika Valdes Assessments Encounter Date Diagnosis [...] smoking cessation education anorxia - education http_s://www.trent.o rg/Xcueo-Zzjdgf-Vdd ness/Mental-Health- Conditions http_s://psychcentr Anki.com/depression/t gj-ifahbylfk-kfiyas kz-yz-ngiycnxqkt#tr eatments http__s://www.nimh. nih.gov/health/topi cs/jyqhfr-ebpkza-dn dications http__s://www.trent. org/Qfjhs-Nxunsl-Sd lness/Treatments/Me azzz-Brnpqb-Lxehnpj ions educated on all medications, benefits, side [...] smoking cessation education anorxia - education http_s://www.trent.o rg/Xyfwm-Unbelv-Vvp ness/Mental-Health- Conditions http_s://psychcentr Anki.com/depression/t wi-jqrcqmiee-vsvrsw iq-xz-qtojnriuef#tr eatments http__s://www.nimh. nih.gov/health/topi cs/ibntpd-prkjwe-lv dications http__s://www.trent. org/Beppf-Xiiryo-Bp lness/Treatments/Me kplf-Jtcqdw-Ghvsxlx ions educated on all medications, benefits, side [...] products and stop smoking hotline given http_s://www.trent.o rg/Qoshw-Jhxigb-Nya ness/Mental-Health- Conditions http_s://psychRheonix.com/depression/t py-gkgcasqpq-oebaxx jc-ee-kysaevvdew#tr eatments http__s://www.nimh. nih.gov/health/topi cs/xhdlhz-ivpoyo-mv dications http__s://www.trent. org/Klawm-Rljcvx-Kb lness/Treatments/Me ueyt-Borzfx-Iuzqhtk ions educated on all medications, benefits, side [...] products and stop smoking hotline given http_s://www.trent.o rg/Eiiio-Cofvdk-Kkt ness/Mental-Health- Conditions http_s://psychcentr al.com/depression/t bn-hllqpovly-zyaunf qv-fv-dbzlcghvxv#tr eatments http__s://www.nimh. nih.gov/health/topi cs/maaewk-umfvix-nn dications http__s://www.trent. org/Zhlro-Qxcozg-Vp lness/Treatments/Me tdaq-Rmyjbm-Pyekjyv ions educated on all medications, benefits, side [...] products and stop smoking hotline given http_s://www.trent.o rg/Ckgwd-Womoiq-Bcn ness/Mental-Health- Conditions http_s://psychcentr Anki.com/depression/t cg-vqpliddna-qxffez ym-vr-cxetlcmuho#tr eatments http__s://www.nimh. nih.gov/health/topi cs/rnpyyg-eqgimx-mp dications http__s://www.trent. org/Bbilm-Ckjkhn-Dw lness/Treatments/Me lgvx-Ntnvla-Brbghpn ions educated on all medications, benefits, side [...] products and stop smoking hotline given http_s://www.trent.o rg/Cxglr-Udyyaq-Zln ness/Mental-Health- Conditions http_s://psychcentr al.com/depression/t mv-mopgidoeh-sniwwi md-go-uarmmppvnr#tr eatments http__s://www.nimh. nih.gov/health/topi cs/ktafzb-gotaun-tv dications http__s://www.trent. org/Gsfea-Ricpox-Mj lness/Treatments/Me xryz-Sqqeyb-Wczjtrw ions educated on all medications, benefits, side [...] smoking cessation education anorxia - education http_s://www.trent.o rg/Naafl-Fayxsf-Yqz ness/Mental-Health- Conditions http_s://psychcentr Anki.com/depression/t qy-jfwjggbdq-nfckzr id-fh-yysklgesuq#tr eatments http__s://www.nimh. nih.gov/health/topi cs/pjlnrp-dcsqoj-ws dications http__s://www.trent. org/Gpoxu-Erdysy-Uk lness/Treatments/Me spek-Xtkqbo-Xamjeez ions educated on all medications, benefits, side [...] products and stop smoking hotline given http_s://www.trent.o rg/Qfbbj-Pwczrg-Aff ness/Mental-Health- Conditions http_s://psychcentr Anki.com/depression/t ym-nyvsbdlwb-qzcgbj jj-dj-zorzcongna#tr eatments http__s://www.nimh. nih.gov/health/topi cs/vcubtk-ppbgxf-ai dications http__s://www.trent. org/Twqdt-Aupagi-Vh lness/Treatments/Me qtwo-Nbhyaj-Jfyveni ions educated on all medications, benefits, side [...] products and stop smoking hotline given http_s://www.trent.o rg/Fjscd-Uzedxi-Bov ness/Mental-Health- Conditions http_s://psychcentr Cloudy Dayscom/depression/t kx-nrvdieelo-arbdey jw-tr-rdabisvqph#tr eatments http__s://www.nimh. nih.gov/health/topi cs/rzrkgs-uofvts-gw dications http__s://www.trent. org/Yadip-Yfldac-Py lness/Treatments/Me nikr-Jdhpdi-Qfcdyxp ions educated on all medications, benefits, side [...] products and stop smoking hotline given http_s://www.trent.o rg/Qxkvk-Rpesxq-Ini ness/Mental-Health- Conditions http_s://psychAccelaloxr Anki.com/depression/t hw-qprysljdp-uwayym rx-bt-prljppahji#tr eatments http__s://www.nimh. nih.gov/health/topi cs/xmhujz-mmczlk-rq dications http__s://www.trent. org/Suamh-Xbbijw-Lw lness/Treatments/Me kdzx-Esyfyt-Impsmjm ions educated on all medications, benefits, side [...] products and stop smoking hotline given http_s://www.trent.o rg/Iadyy-Xjdsuk-Kgw ness/Mental-Health- Conditions http_s://psychcentr al.com/depression/t nr-dkcnnhhdn-hhkuon yj-wh-yljucmbdrl#tr eatments http__s://www.nimh. nih.gov/health/topi cs/byoaid-phteja-tp dications http__s://www.trent. org/Pvmmj-Pfreau-Ju lness/Treatments/Me issd-Arnaxk-Whoybhf ions educated on all medications, benefits, side [...] products and stop smoking hotline given http_s://www.trent.o rg/Yhbga-Gxgoow-Ywq ness/Mental-Health- Conditions http_s://psychcentr Anki.com/depression/t ea-haigrreau-mnpaiu gg-xj-ohcbczspyg#tr eatments http__s://www.nimh. nih.gov/health/topi cs/qcgkyk-atolwh-yl dications http__s://www.trent. org/Rpvsd-Qeitnx-Ku lness/Treatments/Me psbq-Xsjfke-Lasztxp ions educated on all medications, benefits, side [...] products and stop smoking hotline given http_s://www.trent.o rg/Nabkc-Xkksex-Cno ness/Mental-Health- Conditions http_s://psychAccelaloxr Anki.com/depression/t ji-yfqqyamey-efxiqs te-nd-wobsdrscqr#tr eatments http__s://www.nimh. nih.gov/health/topi cs/tcyjkr-jobfrj-mx dications http__s://www.trent. org/Zcdcr-Pndaem-Vl lness/Treatments/Me ooqz-Zawnor-Thqpavj ions educated on all medications, benefits, side [...] smoking cessation education anorxia - education http_s://www.trent.o rg/Jmdpq-Ostqgf-Vez ness/Mental-Health- Conditions http_s://psychcentr Anki.com/depression/t vs-pegybympf-bnlptj sz-kx-ibsrsxuzsm#tr eatments http__s://www.nimh. nih.gov/health/topi cs/hjcnhi-zdpgax-ik dications http__s://www.trent. org/Nnppe-Mpfimr-Mn lness/Treatments/Me ocep-Riwacx-Jaqlnwd ions educated on all medications, benefits, side [...] products and stop smoking hotline given http_s://www.trent.o rg/Syzoj-Somwrm-Ylv ness/Mental-Health- Conditions http_s://psychcentr al.com/depression/t bz-rglpucfeu-fouget zy-or-aoqbbcxxbi#tr eatments http__s://www.nim. nih.gov/health/topi cs/okjsgq-xfakqu-eg dications http__s://www.trent. org/Swrzg-Wewmac-Px lness/Treatments/Me xaoj-Eesomy-Vfdajbk ions educated on all medications, benefits, side [...] smoking cessation education anorxia - education http_s://www.trent.o rg/Rirwv-Qyabll-Kqh ness/Mental-Health- Conditions http_s://psychcentr Anki.com/depression/t ol-oyipdxtrf-ddvmnc gs-jz-uzdiwaysbv#tr eatments http__s://www.nimh. nih.gov/health/topi cs/pmdqbw-wvfsgm-po dications http__s://www.trent. org/Pfcxc-Pqalbg-Vp lness/Treatments/Me vxtv-Fviwpe-Rrlrant ions educated on all medications, benefits, side [...] products and stop smoking hotline given http_s://www.trent.o rg/Dqest-Xppnyx-Ooz ness/Mental-Health- Conditions http_s://psychRheonix.com/depression/t eh-ehegymrlw-ijdyoo ye-yg-wgclstimzi#tr eatments http__s://www.nimh. nih.gov/health/topi cs/uqkitb-hqjmlu-bi dications http__s://www.trent. org/Rxkww-Saqwkb-Qv lness/Treatments/Me hkqo-Swlntj-Vdcjlhi ions educated on all medications, benefits, side [...] and interactions with prescribed medications. 05/15/2024 Other prison (current) drug therapy (ICD-10 - Z79.899) Medication [...] products and stop smoking hotline given http_s://www.trent.o rg/Pgjvi-Idcnjj-Ddp ness/Mental-Health- Conditions http_s://psychcentr Anki.com/depression/t dj-hacccwanm-xcmmog ly-sg-zfxbbuxjta#tr eatments http__s://www.nimh. nih.gov/health/topi cs/yyflne-hzuulw-mk dications http__s://www.trent. org/Zsdud-Qxpfwk-Tv lness/Treatments/Me iwyo-Tuxclw-Gjijalp ions educated on all medications, benefits, side [...] and interactions with prescribed medications. 06/24/2024 Other prison (current) drug therapy (ICD-10 - Z79.899) Medication [...] products and stop smoking hotline given http_s://www.trent.o rg/Pdxea-Fzpmst-Zmi ness/Mental-Health- Conditions http_s://psychcentr Anki.com/depression/t tb-tntfgolcw-npptmv bh-ws-edicrckjkb#tr eatments http__s://www.nimh. nih.gov/health/topi cs/zygqzl-xrnfqw-bc dications http__s://www.trent. org/Zfypm-Wbdxjx-Yw lness/Treatments/Me yaef-Ctdice-Frdbkiq ions educated on all medications, benefits, side [...] and interactions with prescribed medications. 01/31/2024 Other prison (current) drug therapy (ICD-10 - Z79.899) presently taking Lexapro 20 mg daily, Remeron 30 mg bedtime, Trazodone 200 mg bedtime Depression- Lexapro 20 mg daily, Remeron 30 mg bedtime Anxiety- Lexapro 20 mg daily, Remeron 30 mg bedtime sleep- Trazodone 200 mg bedtime Tobacco use- smoking cessation education anorxia - education http_s://www.trent.o rg/Gxvof-Tbhndu-Vuj ness/Mental-Health- Conditions http_s://psychcentr Anki.com/depression/t eb-rnixqcfhp-qwrwyb nf-rt-orjcidkkom#tr eatments http__s://www.nimh. nih.gov/health/topi cs/omyfgx-ffxabf-mg dications http__s://www.trent. org/Dxfpg-Bezude-Wv lness/Treatments/Me avej-Dzhsbg-Ajiwnmm ions educated on all medications, benefits, side [...] and interactions with prescribed medications. 07/31/2024 Other prison (current) drug therapy (ICD-10 - Z79.395) Medication Refill: Care Instructions material was published [...] products and stop smoking hotline given http_s://www.trent.o rg/Twmrw-Sdiufu-Ynk ness/Mental-Health- Conditions http_s://psychAccelaloxr Anki.com/depression/t nq-kcfpklyst-zkswyb tu-ux-arfzqfbwcx#tr eatments http__s://www.nimh. nih.gov/health/topi cs/isxytd-dytwqd-sa dications http__s://www.trent. org/Bbrfu-Rkpbbk-Bi lness/Treatments/Me edgz-Hvzqjn-Qgpbxof ions educated on all medications, benefits, side [...] products and stop smoking hotline given http_s://www.trent.o rg/Kusop-Dnrlum-Pll ness/Mental-Health- Conditions http_s://psychcentr Anki.com/depression/t eo-rsmxzjnll-dmhpws iz-ly-hvfmvuwbmk#tr eatments http__s://www.nimh. nih.gov/health/topi cs/fumjvz-vgrebp-as dications http__s://www.trent. org/Vmzcu-Wvioej-Ov lness/Treatments/Me btwq-Zjcslr-Htfrldw ions educated on all medications, benefits, side [...] smoking cessation education anorxia - education http_s://www.trent.o rg/Dtaok-Mbzxid-Bwv ness/Mental-Health- Conditions http_s://psychcentr al.com/depression/t pi-yexojctlm-ejgazc pe-ye-atgalpizds#tr eatments http__s://www.nimh. nih.gov/health/topi cs/ezuadv-evtnlx-ug dications http__s://www.trent. org/Dnufs-Ktyzbx-Sa lness/Treatments/Me ovmz-Cuqyns-Jticica ions educated on all medications, benefits, side [...] products and stop smoking hotline given http_s://www.trent.o rg/Pczat-Dpcudp-Ese ness/Mental-Health- Conditions http_s://psychAccelaloxr Anki.com/depression/t co-yoopesytd-skwphs rj-gd-yvkvgxcnjn#tr eatments http__s://www.nimh. nih.gov/health/topi cs/hnrzbw-efbrri-yp dications http__s://www.trent. org/Pndhx-Einoqj-Jo lness/Treatments/Me dxhm-Dpilhl-Dxzvzeu ions educated on all medications, benefits, side [...] PM, [address], [address], [place], [address], Provider Name:Malika Valdes , 01/30/2025 01:00:00 PM, [address], [address], [place], [address], Insurance Providers Payer Name Payer Address Payer Phone Subscriber Number Group Number Insured Name Patient Relationship to Insured Coverage Start Date Coverage End Date [place] [address] [place] [address] [id number] DUSTIN VELASQUEZ Self - patient is the insured [employer] Medicare Supplement [address] [place] [address] [id number] DUSTNI VELASQUEZ Self - patient is the insured Medical (General) History Medical History History ICD Code Problems: Anorexia nervosa Anxiety disorder Long-term drug therapy Memory impairment Mild major depression Primary insomnia Tobacco user , Surgical History Surgery Date(Month/Year) Procedure on back (914217192) Hysterectomy/revise vagina (37301) 05/14 Hysterectomy (53606) 05/14/1984 Appendectomy (85916) 12/13/1979
--- OUTSIDE RECORDS SUMMARY | 2024-10-22 08:05 | XMS_ITS | Referral Summary ---
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 ENGINEER Gender Identity Not on file Sexual Orientation Not on file Last Filed Vital Signs Vital Sign Reading Time Taken Comments Blood Pressure 138/83 06/10/2021 12:50 PM DATA ENGINEER Pulse 84 06/10/2021 12:50 PM DATA ENGINEER Temperature 36.8 C (98.2 F) 06/10/2021 12:50 PM DATA ENGINEER Respiratory Rate 18 06/02/2021 8:22 AM DATA ENGINEER Oxygen Saturation 96% 06/10/2021 12:50 PM DATA ENGINEER Inhaled Oxygen Concentration - - Weight 51.3 kg (113 lb) 06/10/2021 12:50 PM DATA ENGINEER Height 167.6 cm (5' 6) 05/31/2021 12:00 PM DATA ENGINEER Body Mass Index 18.24 05/31/2021 12:00 PM DATA ENGINEER Plan of Treatment Not on file Insurance AETNA [facility] HMO MEDICARE AET SENIOR SUPPLEMENT O MEDICARE AETNA SENIOR SUPPLEMENT Advance Directives For more information, please contact: [phone] * Full Code (Latest Code Status on File) Date Activated Date Inactivated Comments 05/31/2021 12:19 PM 06/02/2021 2:24 PM Care Teams Commission Associate Relationship Specialty Start Date End Date Jc Pickett MD [address] [place] [address] PCP - General Internal Medicine 03/02/21
--- OUTSIDE RECORDS SUMMARY | 2024-10-22 08:05 | XMS_ITS | Clinical Summary ---
Author Organization [facility] Address [address] [place] [address] Care Team Providers Care Manager Benefit Name Role Phone Unavailable Primary Care Provider Unavailabl e Source Comments [facility],non-owned Affiliates and Associated Physician Practices is amultiple site organization consisting of ambulatory clinics and hospital sitesin [place], [place], [place] and [place]. This disclosure is being madepursuant to the Care Everywhere program and may not contain all information available regarding this patient. Last updated 18.[facility] Social History Tobacco Use Types Packs/Day Years [...]
--- OUTSIDE RECORDS SUMMARY | 2024-10-22 08:05 | XMS_ITS | Clinical Summary ---
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 Gender Identity Not on file Sexual Orientation [...] Comments Blood Pressure 138/83 06/10/2021 12:50 PM LIQUEFACTION SUPERVISOR Pulse 84 06/10/2021 12:50 PM LIQUEFACTION SUPERVISOR Temperature 36.8 C (98.2 F) 06/10/2021 12:50 PM LIQUEFACTION SUPERVISOR Respiratory Rate 18 06/02/2021 8:22 AM LIQUEFACTION SUPERVISOR Oxygen Saturation 96% 06/10/2021 12:50 PM LIQUEFACTION SUPERVISOR Inhaled Oxygen Concentration - - Weight 51.3 kg (113 lb) 06/10/2021 12:50 PM LIQUEFACTION SUPERVISOR Height 167.6 cm (5' 6) 05/31/2021 12:00 PM LIQUEFACTION SUPERVISOR Body Mass Index 18.24 05/31/2021 12:00 PM LIQUEFACTION SUPERVISOR Plan of Treatment Not on file Insurance AETNA [facility] HMO MEDICARE AETNA SENIOR SUPPLEMENT [employer] HMO MEDICARE AETNA SENIOR SUPPLEMENT Advance Directives For more information, please contact: [phone] * Full Code (Latest Code Status on File) Date Activated Date Inactivated Comments 05/31/2021 12:19 PM 06/02/2021 2:24 PM Care Teams Cook House Laborer Relationship Specialty Start Date End Date Jc Pickett MD [address] [place] [address] PCP - General Internal Medicine 03/02/21
[2024-10-22 08:21] LABS: Estimated Glomerular Filt Rate > 60
== END 2024-10-22 07:57 | disposition home or self-care (01) ==
LOC: CHSIMG 07:57
PROVIDERS: PCP Internal Medicine; Visit Provider Internal Medicine
DX: J43.9 Emphysema, unspecified (principal)
CPT/HCPCS: 71275; Q9967